=== PATIENT | male | born 1965 | race Caucasian/White ===

== ENCOUNTER 2023-07-03 07:36 | Emergency (ER) | payer BC, SELFPAY ==
--- OUTSIDE RECORDS SUMMARY | 2023-07-03 07:40 | XMS REPORT | Continuity of Care Document ---
:1965 Author Organization [facility] t Address [address] [place] [id number] Care Team Providers Name Role Phone BLANCO VÁZQUEZ Primary Care Physician Unavailable FRANKIE SCHNEIDER Attending Clinician Unavailable FRANKIE SCHNEIDER Attending Clinician Unavailable Blanco Vázquez MD Attending Clinician BLANCO VÁZQUEZ Attending Clinician Unavailable Doctor Unassigned, [facility] Attending Clinician Unavailable Khurram Mar Attending Clinician KHURRAM DILLON Attending Clinician Unavailable CHANDLER BROWER Attending Clinician Unavailable MARYLOU FUNEZ Attending Clinician Unavailable MARYLOU FUNEZ Attending Clinician Unavailable Ronit RN, Marina Montoya Attending Clinician Unavailable Marylou Funez MD Attending Clinician Only, Ang Db Test Attending Clinician Unavailable Onelia Bernard Attending Clinician DANIEL ASHER Attending Clinician Unavailable Emi Ferro PT Attending Clinician Unavailable Meño Hurley Attending Clinician MEÑO CAPELLAN Attending Clinician Unavailable Zuleika Loja Attending Clinician Randa Erazo Attending Clinician Rupa Hung Attending Clinician RUPA GRAMAJO Attending Clinician Unavailable Cole NO, Frankie Godfrey Attending Clinician Darlin Munoz DO Attending Clinician Herson Douglas MD Attending Clinician Liam PAC, Daisha Maria E Attending Clinician Anh VESSEL SCRAPPER, Angela Funk Attending Clinician MEÑO CAPELLAN Admitting Clinician Unavailable Herson Douglas MD Admitting Clinician Payers Payer Name Policy Type Policy Number Effective Date Expiration Date S [place]yla [employer] [place] - [id number] 2017 00:00:00 OUT OF STATE Problems Condition Condition Condition Status Onset Resolution Last Treating Co mments Source Name Details Category Date Date Treatment Clinician Date Seizure Seizure Disease Active Univers disorder disorder 8-10 ity of 00:00: [place] [address] Medical Branch Gastroesop Gastroesop Disease Active U nivers hageal hageal 8-10 ity of reflux reflux 00:00: [place] disease disease 00 Medical without without Branch esophagiti esophagiti s s Essential Essential Disease Active 2019-09 Uni vers hypertensi hypertensi 1-05 it y of on on 00:00: [address] Branch DARREN (acute DARREN (acute Disease Active 2019- U nivers kidney kidney 1-05 ity of injury) injury) 00:00: [place] [address] Medical Branch Elevated Elevated Disease Active 2019-09 Unive rs troponin troponin 1-04 ity of 00:00: [place] [facility] Elevated Elevated Disease Active 2019-09 Unive rs troponin troponin 1-04 ity of 00:00: [place] [facility] Branch Allergies, Adverse Reactions, Alerts Allergy Allergy Status Severity Reaction(s) Onset Inactive Treating Comm ents Source Name Type Date Date Clinician NO KNOWN Drug Active Univers ALLERGIE Class ity of S [facility] Social History Social Habit Start Date Stop Date Quantity Comments Source Gender identity Universit y [facility] Sexual orientation Univer sity [facility] History of Social 2023-05-24 2023-05-24 Univers ity of function 00:00:00 00:00:00 [facility] Exposure to 2022-04-04 2022-04-14 Not sure [facility] SARS-CoV-2 (event) 00:00:00 13:54:00 [facility] Tobacco use and 2022-04-14 2022-04-14 Smokeless Universit y of exposure 00:00:00 00:00:00 tobacco non-user [facility] dical Branch Alcohol intake 2022-04-14 2022-04-14 Current drinker Unive rsity of 00:00:00 00:00:00 of alcohol [place] [facility] (finding) Branch History [facility] Food 2020-07-09 2020-07-09 1 Univers ity of Scarcity 00:00:00 00:00:00 [place] [facility] History SDOH 2020-07-09 2020-07-09 2 University o f Transport Med 00:00:00 00:00:00 [place] Medic al Branch History SDOH 2020-07-09 2020-07-09 2 University o f Transport Non-Med 00:00:00 00:00:00 [place] M edical Branch Education 2020-07-09 2020-07-09 13 University of 00:00:00 00:00:00 [place] [facility] History SDOH 2020-07-09 2020-07-09 3 University o f Financial 00:00:00 00:00:00 [place] [facility] History [facility] Food 2020-07-09 2020-07-09 1 Univers ity of Worry 00:00:00 00:00:00 [facility] [birth year] Universit y of 00:00:00 00:00:00 [facility] Smoking Status Start Date Stop Date Source Never smoked tobacco [facility] Medications Ordered Filled Start Stop Current Ordering Indication Dosage Frequency Signature Comments Components Source Medication Medication Date Date Medication? Clinician (SIG) Name Name methocarbam Yes [id number] 500mg Take 1 Univers oL 500 mg 9-19 tablet by ity o f tablet 00:00: mouth 4 [place] 00 (four) Medical times Branch daily as needed for Pain (scale 4-6). amLODIPine- Yes [id number] TAKE ONE Univers benazepriL 9-19 CAPSULE BY ity of 5-20 mg per 00:00: MOUTH [place] capsule 00 EVERY Medical MORNING Branch methocarbam Yes [id number] 500mg Take 1 Univers oL 500 mg 9-19 tablet by ity o f tablet 00:00: mouth 4 [place] 00 (four) Medical times Branch daily as needed for Pain (scale 4-6). amLODIPine- 2022-0 Yes [id number] TAKE ONE Univers benazepriL 9-19 CAPSULE BY ity of 5-20 mg per 00:00: MOUTH [place] capsule 00 EVERY Medical MORNING Branch omeprazole 2022-0 Yes [id number] 20mg Take 1 Univers 20 mg 9-07 capsule by ity of capsule 00:00: mouth in [place] 00 the Medical morning. Branch omeprazole 2022-0 Yes [id number] 20mg Take 1 Univers 20 mg 9-07 capsule by ity of capsule 00:00: mouth in [place] 00 the Medical morning. Branch omeprazole 2022-0 Yes [id number] 20mg Take 1 Univers 20 mg 9-07 capsule by ity of capsule 00:00: mouth in [place] 00 the Medical morning. Branch omeprazole 2022-0 Yes [id number] 20mg Take 1 Univers 20 mg 9-07 capsule by ity of capsule 00:00: mouth in [place] 00 the Medical morning. Branch amLODIPine- 2022-0 Yes [id number] TAKE ONE Univers benazepriL 8-28 CAPSULE BY ity of 5-20 mg per 00:00: MOUTH [place] capsule 00 EVERY Medical MORNING Branch amLODIPine- 2022-0 Yes [id number] TAKE ONE Univers benazepriL 8-28 CAPSULE BY ity of 5-20 mg per 00:00: MOUTH [place] capsule 00 EVERY Medical MORNING Branch amLODIPine- 2022-0 Yes [id number] TAKE ONE Univers benazepriL 8-28 CAPSULE BY ity of 5-20 mg per 00:00: MOUTH [place] capsule 00 EVERY Medical MORNING Branch amLODIPine- 3-0 2022- No [id number] TAKE ONE Univers benazepriL 8-28 09-19 CAPSULE BY it y of 5-20 mg per 00:00: 00:[place] 00 :00 EVERY Medical MORNING Branch amLODIPine- 3-0 2022- No [id number] TAKE ONE Univers benazepriL 8-28 09-19 CAPSULE BY it y of 5-20 mg per 00:00: 00:[place]TH [place] 00 :00 EVERY Medical MORNING Branch levETIRAcet 2022-0 Yes [id number] 1000mg Take 1 Univers am 1,000 mg 8-22 tablet by ity of tablet 00:00: mouth in [place] 00 the Medical morning Branch and 1 tablet in the evening. levETIRAcet 2023-0 Yes [id number] 1000mg Take 1 Univers am 1,000 mg 8-22 tablet by ity of tablet 00:00: mouth in [place] 00 the Medical morning Branch and 1 tablet in the evening. levETIRAcet 2023-0 Yes [id number] 1000mg Take 1 Univers am 1,000 mg 8-22 tablet by ity of tablet 00:00: mouth in [place] 00 the Medical morning Branch and 1 tablet in the evening. levETIRAcet 2023-0 Yes [id number] 1000mg Take 1 Univers am 1,000 mg 8-22 tablet by ity of tablet 00:00: mouth in [place] 00 the Medical morning Branch and 1 tablet in the evening. levETIRAcet 2023-0 Yes [id number] 1000mg Take 1 Univers am 1,000 mg 8-22 tablet by ity of tablet 00:00: mouth in [place] [address] the Medical morning Branch and 1 tablet in the evening. levETIRAcet 2023-0 Yes [id number] 1000mg Take 1 Univers am 1,000 mg 8-22 tablet by ity of tablet 00:00: mouth in [place] [address] the Medical morning Branch and 1 tablet in the evening. levETIRAcet 2023-0 Yes [id number] 1000mg Take 1 Univers am 1,000 mg 8-22 tablet by ity of tablet 00:00: mouth in [place] [address] the Medical morning Branch and 1 tablet in the evening. AMLODIPINE- 2023-0 Yes [id number] TAKE ONE Univers BENAZEPRIL 6-28 CAPSULE BY ity of 5-20 mg per 00:00: MOUTH [place] capsule 00 EVERY Medical MORNING Branch AMLODIPINE- 2023-0 Yes [id number] TAKE ONE Univers BENAZEPRIL 6-28 CAPSULE BY ity of 5-20 mg per 00:00: MOUTH [place] capsule 00 EVERY Medical MORNING Branch AMLODIPINE- 2023-0 Yes [id number] TAKE ONE Univers BENAZEPRIL 6-28 CAPSULE BY ity of 5-20 mg per 00:00: MOUTH [place] capsule 00 EVERY Medical MORNING Branch AMLODIPINE- 2023-0 2023- No [id number] TAKE ONE Univers BENAZEPRIL 6-28 08-28 CAPSULE BY it y of 5-20 mg per 00:00: 00:[place]TH [place] 00 :00 EVERY Medical MORNING Branch AMLODIPINE- 2022-0 2022- No [id number] TAKE ONE Univers BENAZEPRIL 6-28 08-28 CAPSULE BY it y of 5-20 mg per 00:00: 00:[place]TH [place] 00 :00 EVERY Medical MORNING Branch amLODIPine- 2022-0 Yes [id number] TAKE ONE Univers benazepriL 5-30 CAPSULE BY ity of 5-20 mg per 00:00: MOUTH [place] capsule 00 EVERY Medical MORNING Branch amLODIPine- 2022-0 2022- No [id number] TAKE ONE Univers benazepriL 5-30 06-28 CAPSULE BY it y of 5-20 mg per 00:00: 00:00 M[place]TH [place] 00 :00 EVERY Medical MORNING Branch AMLODIPINE- 2022-0 Yes [id number] TAKE ONE Univers BENAZEPRIL 4-26 CAPSULE BY ity of 5-20 mg per 00:00: MOUTH [place] capsule 00 EVERY Medical MORNING Branch AMLODIPINE- 2022-0 2022- No [id number] TAKE ONE Univers BENAZEPRIL 4-26 05-30 CAPSULE BY it y of 5-20 mg per 00:00: 00:00 MOUTH [place] capsule 00 :00 EVERY Medical MORNING Branch AMLODIPINE- 2022-0 Yes [id number] TAKE ONE Univers BENAZEPRIL 3-23 CAPSULE BY ity of 5-20 mg per 00:00: MOUTH [place] capsule 00 EVERY Medical MORNING Branch AMLODIPINE- 2022-0 2022- No [id number] TAKE ONE Univers BENAZEPRIL 3-23 04-26 CAPSULE BY it y of 5-20 mg per 00:00: 00:[place]TH [place] capsule 00 :00 EVERY Medical MORNING Branch amLODIPine- 2022-0 Yes [id number] 1{capsu Take 1 Univers benazepriL 2-22 le} capsule by ity of 5-20 mg per 00:00: mouth in [place] capsule 00 the Medical morning. Branch amLODIPine- 2022-0 2022- No [id number] 1{capsu Take 1 Univers benazepriL 2-22 03-23 le} capsule by it y of 5-20 mg per 00:00: 00:00 mouth in [place] capsule 00 :00 the Medical morning. Branch levETIRAcet 2021-0 Yes [id number] 1000mg Take 1 Univers am 1,000 mg 8-10 tablet by ity of tablet 00:00: mouth in [place] the Medical morning Branch and 1 tablet in the evening. omeprazole 2022-0 Yes [id number] 20mg Take 1 Univers 20 mg 8-10 capsule by ity of capsule 00:00: mouth in [place] the Medical morning. Branch levETIRAcet 2-0 Yes [id number] 1000mg Take 1 Univers am 1,000 mg 8-10 tablet by ity of tablet 00:00: mouth in [place] the Medical morning Branch and 1 tablet in the evening. omeprazole 2-0 Yes [id number] 20mg Take 1 Univers 20 mg 8-10 capsule by ity of capsule 00:00: mouth in [place] the Medical morning. Branch levETIRAcet 2021-0 Yes [id number] 1000mg Take 1 Univers am 1,000 mg 8-10 tablet by ity of tablet 00:00: mouth in [place] the morning Branch and 1 tablet in the evening. omeprazole 2-0 Yes [id number] 20mg Take 1 Univers 20 mg 8-10 capsule by ity of capsule 00:00: mouth in [place] the Medical morning. Branch omeprazole 2-0 Yes [id number] 20mg Take 1 Univers 20 mg 8-10 capsule by ity of capsule 00:00: mouth in [place] the Medical morning. Branch omeprazole 2-0 Yes [id number] 20mg Take 1 Univers 20 mg 8-10 capsule by ity of capsule 00:00: mouth in [place] the Medical morning. Branch omeprazole 2-0 Yes [id number] 20mg Take 1 Univers 20 mg 8-10 capsule by ity of capsule 00:00: mouth in [place] the Medical morning. Branch levETIRAcet 2-0 Yes [id number] 1000mg Take 1 Univers am 1,000 mg 8-10 tablet by ity of tablet 00:00: mouth in [place] the Medical morning Branch and 1 tablet in the evening. omeprazole 2022-0 Yes [id number] 20mg Take 1 Univers 20 mg 8-10 capsule by ity of capsule 00:00: mouth in [place] the Medical morning. Branch amLODIPine- 2-0 Yes [id number] 1{capsu Take 1 Univers benazepriL 8-10 le} capsule by ity of 5-20 mg per 00:00: mouth in [place] capsule 00 the Medical morning. Branch levETIRAcet 2021-0 Yes [id number] 1000mg Take 1 Univers am 1,000 mg 8-10 tablet by ity of tablet 00:00: mouth in [place] 00 the Medical morning Branch and 1 tablet in the evening. omeprazole 2021-0 Yes [id number] 20mg Take 1 Univers 20 mg 8-10 capsule by ity of capsule 00:00: mouth in [place] 00 the Medical morning. Branch levETIRAcet 2021-0 Yes [id number] 1000mg Take 1 Univers am 1,000 mg 8-10 tablet by ity of tablet 00:00: mouth in [place] 00 the Medical morning Branch and 1 tablet in the evening. omeprazole 2021-0 Yes [id number] 20mg Take 1 Univers 20 mg 8-10 capsule by ity of capsule 00:00: mouth in [place] 00 the Medical morning. Branch omeprazole 2021-0 2022- No [id number] 20mg Take 1 Univers 20 mg 8-10 -07 capsule by ity of capsule 00:00: 00:00 mouth in [place] 00 :00 the Medical morning. Branch omeprazole 2021-0 2022- No [id number] 20mg Take 1 Univers 20 mg 8-10 09-07 capsule by ity of capsule 00:00: 00:00 mouth in [place] 00 :00 the Medical morning. Branch levETIRAcet 2021-0 2022- No [id number] 1000mg Take 1 Univers am 1,000 mg 8-10 -22 tablet by it y of tablet 00:00: 00:00 mouth in [place] 00 :00 the Medical morning Branch and 1 tablet in the evening. amLODIPine- 2021-0 2022- No [id number] 1{capsu Take 1 Univers benazepriL 8-10 02-22 le} capsule by it y of 5-20 mg per 00:00: 00:00 mouth in [place] capsule 00 :00 the Medical morning. Branch AMLODIPINE- 2021-0 2- No [id number] TAKE ONE Univers BENAZEPRIL 5-24 08-10 CAPSULE BY it y of 5-20 mg per 00:00: 00:[place] M[place]TH [place] capsule 00 :00 DAILY Medical Branch meloxicam 2021-0 Yes [id number] 15mg Take 1 U nivers 15 mg 7-20 tablet by ity of tablet 00:00: mouth [place] 00 daily. [facility] Branch meloxicam Yes [id number] 15mg Take 1 U nivers 15 mg 7-20 tablet by ity of tablet 00:00: mouth [place] 00 daily. [facility] meloxicam Yes [id number] 15mg Take 1 U nivers 15 mg 7-20 tablet by ity of tablet 00:00: mouth [place] 00 daily. [facility] Branch meloxicam Yes [id number] 15mg Take 1 U nivers 15 mg 7-20 tablet by ity of tablet 00:00: mouth [place] 00 daily. [facility] meloxicam Yes [id number] 15mg Take 1 U nivers 15 mg 7-20 tablet by ity of tablet 00:00: mouth [place] 00 daily. [facility] meloxicam Yes [id number] 15mg Take 1 U nivers 15 mg 7-20 tablet by ity of tablet 00:00: mouth [place] 00 daily. [facility] meloxicam Yes [id number] 15mg Take 1 U nivers 15 mg 7-20 tablet by ity of tablet 00:00: mouth [place] 00 daily. [facility] meloxicam Yes [id number] 15mg Take 1 U nivers 15 mg 7-20 tablet by ity of tablet 00:00: mouth [place] 00 daily. [facility] meloxicam Yes [id number] 15mg Take 1 U nivers 15 mg 7-20 tablet by ity of tablet 00:00: mouth [place] 00 daily. [facility] meloxicam Yes [id number] 15mg Take 1 U nivers 15 mg 7-20 tablet by ity of tablet 00:00: mouth [place] 00 daily. [facility] meloxicam 0 Yes [id number] 15mg Take 1 U nivers 15 mg 7-20 tablet by ity of tablet 00:00: mouth [place] 00 daily. [facility] meloxicam 2022- No [id number] 15mg Take 1 Univers 15 mg 7-20 09-19 tablet by ity of tablet 00:00: 00:00 mouth [place] 00 :00 daily. [facility] meloxicam 2022- No [id number] 15mg Take 1 Univers 15 mg 7-20 - tablet by ity of tablet 00:00: 00:00 mouth [place] 00 :00 daily. Medical Branch meloxicam 2022- No [id number] 15mg Take 1 Univers 15 mg 7-20 -19 tablet by ity of tablet 00:00: 00:00 mouth [place] 00 :00 daily. Medical Branch methocarbam Yes [id number] 500mg Take 1 Univers oL 500 mg 5-04 tablet by ity o f tablet 00:00: mouth (four) Medical times Branch daily as needed for Pain (scale 4-6). methocarbam Yes [id number] 500mg Take 1 Univers oL 500 mg 5-04 tablet by ity o f tablet 00:00: mouth (four) Medical times Branch daily as needed for Pain (scale 4-6). methocarbam Yes [id number] 500mg Take 1 Univers oL 500 mg 5-04 tablet by ity o f tablet 00:00: mouth (four) Medical times Branch daily as needed for Pain (scale 4-6). methocarbam Yes [id number] 500mg Take 1 Univers oL 500 mg 5-04 tablet by ity o f tablet 00:00: mouth (four) Medical times Branch daily as needed for Pain (scale 4-6). methocarbam Yes [id number] 500mg Take 1 Univers oL 500 mg 5-04 tablet by ity o f tablet 00:00: mouth (four) Medical times Branch daily as needed for Pain (scale 4-6). methocarbam Yes [id number] 500mg Take 1 Univers oL 500 mg 5-04 tablet by ity o f tablet 00:00: mouth (four) Medical times Branch daily as needed for Pain (scale 4-6). methocarbam Yes [id number] 500mg Take 1 Univers oL 500 mg 5-04 tablet by ity o f tablet 00:00: mouth (four) Medical times Branch daily as needed for Pain (scale 4-6). methocarbam Yes [id number] 500mg Take 1 Univers oL 500 mg 5-04 tablet by ity o f tablet 00:00: mouth 4 [place] 00 (four) Medical times Branch daily as needed for Pain (scale 4-6). methocarbam Yes [id number] 500mg Take 1 Univers oL 500 mg 5-04 tablet by ity o f tablet 00:00: mouth 4 [place] 00 (four) Medical times Branch daily as needed for Pain (scale 4-6). methocarbam Yes [id number] 500mg Take 1 Univers oL 500 mg 5-04 tablet by ity o f tablet 00:00: mouth 4 [place] 00 (four) Medical times Branch daily as needed for Pain (scale 4-6). methocarbam Yes [id number] 500mg Take 1 Univers oL 500 mg 5-04 tablet by ity o f tablet 00:00: mouth 4 [place] 00 (four) Medical times Branch daily as needed for Pain (scale 4-6). methocarbam 2022- No [id number] 500mg Take 1 Univers oL 500 mg 5-04 -19 tablet by ity of tablet 00:00: 00:00 mouth 4 [place] 00 :00 (four) Medical times Branch daily as needed for Pain (scale 4-6). methocarbam 2022- No [id number] 500mg Take 1 Univers oL 500 mg 5-04 -19 tablet by ity of tablet 00:00: 00:00 mouth 4 [place] 00 :00 (four) Medical times Branch daily as needed for Pain (scale 4-6). methocarbam 2022- No [id number] 500mg Take 1 Univers oL 500 mg 5-04 -19 tablet by ity of tablet 00:00: 00:00 mouth 4 [place] 00 :00 (four) Medical times Branch daily as needed for Pain (scale 4-6). lidocaine 5 Yes [id number] Apply 1-2 Univers % (700 4-16 patches to ity of mg/patch) 00:00: the area [place] patch 00 and leave Medical in place Branch for up to 12 hours in a day. Do not reapply patches until the next day. meloxicam Yes [id number] 1{tbl} Take 1 Univers 15 mg TbDL 4-16 tablet by ity of 00:00: mouth [place] 00 daily. Medical Branch lidocaine 5 2020- Yes [id number] Apply 1-2 Univers % (700 4-16 patches to ity of mg/patch) 00:00: the area [place] patch 00 and leave Medical in place Branch for up to 12 hours in a day. Do not reapply patches until the next day. meloxicam Yes [id number] 1{tbl} Take 1 Univers 15 mg TbDL 4-16 tablet by ity of 00:00: mouth [place] 00 daily. Medical Branch lidocaine 5 Yes [id number] Apply 1-2 Univers % (700 4-16 patches to ity of mg/patch) 00:00: the area [place] patch 00 and leave Medical in place Branch for up to 12 hours in a day. Do not reapply patches until the next day. meloxicam Yes [id number] 1{tbl} Take 1 Univers 15 mg TbDL 4-16 tablet by ity of 00:00: mouth [place] 00 daily. Medical Branch lidocaine 5 Yes [id number] Apply 1-2 Univers % (700 4-16 patches to ity of mg/patch) 00:00: the area [place] patch 00 and leave Medical in place Branch for up to 12 hours in a day. Do not reapply patches until the next day. meloxicam Yes [id number] 1{tbl} Take 1 Univers 15 mg TbDL 4-16 tablet by ity of 00:00: mouth [place] 00 daily. Medical Branch lidocaine 5 Yes [id number] Apply 1-2 Univers % (700 4-16 patches to ity of mg/patch) 00:00: the [place] patch 00 and leave Medical in place Branch for up to 12 hours in a day. Do not reapply patches until the next day. meloxicam Yes [id number] 1{tbl} Take 1 Univers 15 mg TbDL 4-16 tablet by ity of 00:00: mouth [place] 00 daily. Medical Branch lidocaine 5 2020- Yes [id number] Apply 1-2 Univers % (700 4-16 patches to ity of mg/patch) 00:00: the area [place] patch 00 and leave Medical in place Branch for up to 12 hours in a day. Do not reapply patches until the next day. meloxicam Yes [id number] 1{tbl} Take 1 Univers 15 mg TbDL 4-16 tablet by ity of 00:00: mouth [place] 00 daily. Medical Branch lidocaine 5 Yes [id number] Apply 1-2 Univers % (700 4-16 patches to ity of mg/patch) 00:00: the [place] patch 00 and leave Medical in place Branch for up to 12 hours in a day. Do not reapply patches until the next day. meloxicam Yes [id number] 1{tbl} Take 1 Univers 15 mg TbDL 4-16 tablet by ity of 00:00: mouth [place] 00 daily. Medical Branch lidocaine 5 Yes [id number] Apply 1-2 Univers % (700 4-16 patches to ity of mg/patch) 00:00: the [place] patch 00 and leave Medical in place Branch for up to 12 hours in a day. Do not reapply patches until the next day. meloxicam Yes [id number] 1{tbl} Take 1 Univers 15 mg TbDL 4-16 tablet by ity of 00:00: mouth [place] 00 daily. Medical Branch lidocaine 5 Yes [id number] Apply 1-2 Univers % (700 4-16 patches to ity of mg/patch) 00:00: the [place] patch 00 and leave Medical in place Branch for up to 12 hours in a day. Do not reapply patches until the next day. meloxicam Yes [id number] 1{tbl} Take 1 Univers 15 mg TbDL 4-16 tablet by ity of 00:00: mouth [place] 00 daily. Medical Branch lidocaine 5 Yes [id number] Apply 1-2 Univers % (700 4-16 patches to ity of mg/patch) 00:00: the [place] patch 00 and leave Medical in place Branch for up to 12 hours in a day. Do not reapply patches until the next day. meloxicam Yes [id number] 1{tbl} Take 1 Univers 15 mg TbDL 4-16 tablet by ity of 00:00: mouth [place] 00 daily. Medical Branch lidocaine 5 Yes [id number] Apply 1-2 Univers % (700 4-16 patches to ity of mg/patch) 00:00: the [place] patch 00 and leave Medical in place Branch for up to 12 hours in a day. Do not reapply patches until the next day. meloxicam Yes [id number] 1{tbl} Take 1 Univers 15 mg TbDL 4-16 tablet by ity of 00:00: mouth [place] 00 daily. Medical Branch lidocaine 5 2022- No [id number] Apply 1-2 Univers % (700 4-16 09-19 patches to ity of mg/patch) 00:00: 00:00 [place] patch 00 :00 and leave Medical in place Branch for up to 12 hours in a day. Do not reapply patches until the next day. meloxicam 2022- No [id number] 1{tbl} Take 1 Univers 15 mg TbDL 4-16 09-19 tablet by ity of 00:00: 00:00 mouth [place] 00 :00 daily. Medical Branch lidocaine 5 2022- No [id number] Apply 1-2 Univers % (700 4-16 09-19 patches to ity of mg/patch) 00:00: 00:00 [place] patch 00 :00 and leave Medical in place Branch for up to 12 hours in a day. Do not reapply patches until the next day. meloxicam 2022- No [id number] 1{tbl} Take 1 Univers 15 mg TbDL 4-16 09-19 tablet by ity of 00:00: 00:00 mouth [place] 00 :00 daily. Medical Branch lidocaine 5 2022- No [id number] Apply 1-2 Univers % (700 4-16 09-19 patches to ity of mg/patch) 00:00: 00:00 [place] patch 00 :00 and leave Medical in place Branch for up to 12 hours in a day. Do not reapply patches until the next day. meloxicam 2022- No [id number] 1{tbl} Take 1 Univers 15 mg TbDL 4-16 09-19 tablet by ity of 00:00: 00:00 mouth [place] 00 :00 daily. Medical Branch methylPREDN 2021-0 Yes [id number] 84mg Take 21 Univers ISolone 4-14 tablets by ity of (MEDROL, 00:00: mouth [place] CLARY,) 4 mg 00 SEE-INSTRU Med ical tablets CTIONS. Branch follow package directions methylPREDN 1-0 Yes [id number] 84mg Take 21 Univers ISolone 4-14 tablets by ity of (MEDROL, 00:00: mouth [place] CLARY,) 4 mg 00 SEE-INSTRU Med ical tablets CTIONS. Branch follow package directions methylPREDN 1-0 Yes [id number] 84mg Take 21 Univers ISolone 4-14 tablets by ity of (MEDROL, 00:00: mouth [place] CLARY,) 4 mg 00 SEE-INSTRU Med ical tablets CTIONS. Branch follow package directions methylPREDN 1-0 Yes [id number] 84mg Take 21 Univers ISolone 4-14 tablets by ity of (MEDROL, 00:00: mouth [place] CLARY,) 4 mg 00 SEE-INSTRU Med ical tablets CTIONS. Branch follow package directions methylPREDN 1-0 Yes [id number] 84mg Take 21 Univers ISolone 4-14 tablets by ity of (MEDROL, 00:00: mouth [place] CLARY,) 4 mg 00 SEE-INSTRU Med ical tablets CTIONS. Branch follow package directions methylPREDN 1-0 Yes [id number] 84mg Take 21 Univers ISolone 4-14 tablets by ity of (MEDROL, 00:00: mouth [place] CLARY,) 4 mg 00 SEE-INSTRU Med ical tablets CTIONS. Branch follow package directions methylPREDN 1-0 Yes [id number] 84mg Take 21 Univers ISolone 4-14 tablets by ity of (MEDROL, 00:00: mouth [place] CLARY,) 4 mg 00 SEE-INSTRU Med ical tablets CTIONS. Branch follow package directions methylPREDN 2021-0 Yes [id number] 84mg Take 21 Univers ISolone 4-14 tablets by ity of (MEDROL, 00:00: mouth [place] CLARY,) 4 mg 00 SEE-INSTRU Med ical tablets CTIONS. Branch follow package directions methylPREDN 2021-0 Yes [id number] 84mg Take 21 Univers ISolone 4-14 tablets by ity of (MEDROL, 00:00: mouth [place] CLARY,) 4 mg 00 SEE-INSTRU Med ical tablets CTIONS. Branch follow package directions methylPREDN 0 Yes [id number] 84mg Take 21 Univers ISolone 4-14 tablets by ity of (MEDROL, 00:00: mouth [place] CLARY,) 4 mg 00 SEE-INSTRU Med ical tablets CTIONS. Branch follow package directions methylPREDN Yes [id number] 84mg Take 21 Univers ISolone 4-14 tablets by ity of (MEDROL, 00:00: mouth [place] CLARY,) 4 mg 00 SEE-INSTRU Med ical tablets CTIONS. Branch follow package directions methylPREDN 2022- No [id number] 84mg Take 21 Univers ISolone 4-14 09-19 tablets by ity o f (MEDROL, 00:00: 00:00 mouth [place] CLARY,) 4 mg 00 :00 SEE-INSTRU Med ical tablets CTIONS. Branch follow package directions methylPREDN 2022- No [id number] 84mg Take 21 Univers ISolone 4-14 09-19 tablets by ity o f (MEDROL, 00:00: 00:00 mouth [place] CLARY,) 4 mg 00 :00 SEE-INSTRU Med ical tablets CTIONS. Branch follow package directions methylPREDN 2022- No [id number] 84mg Take 21 Univers ISolone 4-14 09-19 tablets by ity o f (MEDROL, 00:00: 00:00 mouth [place] CLARY,) 4 mg 00 :00 SEE-INSTRU Med ical tablets CTIONS. Branch follow package directions levETIRAcet 2021- No [id number] 1000mg Take 1 Univers am 1,000 mg 2-10 08-10 tablet by it y of tablet 00:00: 00:00 mouth 2 [place] 00 :00 (two) Medical times Branch daily. omeprazole 2021- No [id number] 20mg Take 1 Univers 20 mg 2-10 08-10 capsule by ity of capsule 00:00: 00:00 mouth [place] 00 :00 daily. Medical Branch albuterol 2019-0 Yes [id number] 2{puff} Inhale 2 Univers 90 8-23 Puffs ity of mcg/actuati 00:00: every 4 Aren as on inhaler 00 (four) Medical hours as Branch needed for Wheezing or Shortness of Breath. albuterol Yes [id number] 2{puff} Inhale 2 Univers 90 8-23 Puffs ity of mcg/actuati 00:00: every 4 [place] on inhaler 00 (four) Medical hours as Branch needed for Wheezing or Shortness of Breath. albuterol 2018- Yes [id number] 2{puff} Inhale 2 Univers 90 8-23 Puffs ity of mcg/actuati 00:00: every 4 [place] on inhaler 00 (four) Medical hours as Branch needed for Wheezing or Shortness of Breath. albuterol Yes [id number] 2{puff} Inhale 2 Univers 90 8-23 Puffs ity of mcg/actuati 00:00: every 4 [place] on inhaler 00 (four) Medical hours as Branch needed for Wheezing or Shortness of Breath. albuterol Yes [id number] 2{puff} Inhale 2 Univers 90 8-23 Puffs ity of mcg/actuati 00:00: every 4 [place] on inhaler 00 (four) Medical hours as Branch needed for Wheezing or Shortness of Breath. albuterol Yes [id number] 2{puff} Inhale 2 Univers 90 8-23 Puffs ity of mcg/actuati 00:00: every 4 [place] on inhaler 00 (four) Medical hours as Branch needed for Wheezing or Shortness of Breath. albuterol Yes [id number] 2{puff} Inhale 2 Univers 90 8-23 Puffs ity of mcg/actuati 00:00: every 4 [place] on inhaler 00 (four) Medical hours as Branch needed for Wheezing or Shortness of Breath. albuterol Yes [id number] 2{puff} Inhale 2 Univers 90 8-23 Puffs ity of mcg/actuati 00:00: every 4 [place] as on inhaler 00 (four) Medical hours as Branch needed for Wheezing or Shortness of Breath. albuterol Yes [id number] 2{puff} Inhale 2 Univers 90 8-23 Puffs ity of mcg/actuati 00:00: every 4 A[place] as on inhaler 00 (four) Medical hours as Branch needed for Wheezing or Shortness of Breath. albuterol Yes [id number] 2{puff} Inhale 2 Univers 90 8-23 Puffs ity of mcg/actuati 00:00: every 4 Aren as on inhaler 00 (four) Medical hours as Branch needed for Wheezing or Shortness of Breath. albuterol Yes [id number] 2{puff} Inhale 2 Univers 90 8-23 Puffs ity of mcg/actuati 00:00: every 4 Aren as on inhaler 00 (four) Medical hours as Branch needed for Wheezing or Shortness of Breath. albuterol 2022- No [id number] 2{puff} Inhale 2 Univers 90 8-23 09-19 Puffs ity of mcg/actuati 00:00: 00:00 every 4 [place] inhaler 00 :00 (four) Medical hours as Branch needed for Wheezing or Shortness of Breath. albuterol 2022- No [id number] 2{puff} Inhale 2 Univers 90 8-23 09-19 Puffs ity of mcg/actuati 00:00: 00:00 every 4 [place] inhaler 00 :00 (four) Medical hours as Branch needed for Wheezing or Shortness of Breath. albuterol 3- No [id number] 2{puff} Inhale 2 Univers 90 8-23 09-19 Puffs ity of mcg/actuati 00:00: 00:00 every 4 [place] inhaler 00 :00 (four) Medical hours as Branch needed for Wheezing or Shortness of Breath. Immunizations Ordered Filled Date Status Comments Source Immunization Name Immunization Name Influenza Virus 2020-07-10 Completed Universit y of Vaccine Quad .5 mL 00:00:00 [facility] IM 6+ MO Branch Influenza Virus 2020-07-10 Completed Universit y of Vaccine Quad .5 mL 00:00:00 [facility] IM 6+ MO Branch Influenza Virus 2020-07-10 Completed Universit y of Vaccine Quad .5 mL 00:00:00 [facility] IM 6+ MO Branch Influenza Virus 2020-07-10 Completed Universit y of Vaccine Quad .5 mL 00:00:00 [facility] IM 6+ MO Branch Influenza Virus 2020-07-10 Completed Universit y of Vaccine Quad .5 mL 00:00:00 [facility] IM 6+ MO Branch Influenza Virus 2020-07-10 Completed Universit y of Vaccine Quad .5 mL 00:00:00 [facility] IM 6+ MO Branch Influenza Virus 2020-07-10 Completed Universit y of Vaccine Quad .5 mL 00:00:00 [facility] IM 6+ MO Branch (FLUZONE/FLULAVAL/F LUARIX) Influenza Virus 2020-07-10 Completed Universit y of Vaccine Quad .5 mL 00:00:00 [facility] IM 6+ MO Branch (FLUZONE/FLULAVAL/F LUARIX) Influenza Virus 2020-07-10 Completed Universit y of Vaccine Quad .5 mL 00:00:00 [facility] IM 6+ MO Branch (FLUZONE/FLULAVAL/F LUARIX) Influenza Virus 2020-07-10 Completed Universit y of Vaccine Quad .5 mL 00:00:00 [facility] 6+ MO Branch (FLUZONE/FLULAVAL/F LUARIX) Influenza Virus 2020-07-10 Completed Universit y of Vaccine Quad .5 mL 00:00:00 [facility] 6+ MO Branch Influenza Virus 2020-07-10 Completed Universit y of Vaccine Quad .5 mL 00:00:00 [facility] 6+ MO Branch Influenza Virus 2020-07-10 Completed Universit y of Vaccine Quad .5 mL 00:00:00 [facility] 6+ MO Branch Influenza Virus Unknown Completed Universit y of Vaccine Quad .5 mL [facility] 6+ MO Branch (FLUZONE/FLULAVAL/F LUARIX) Vital Signs Vital Name Observation Time Observation Value Comments Source Systolic blood 2023-05-24 20:19:00 131 mm[Hg] Univer sity of pressure [facility] Diastolic blood 2023-05-24 20:19:00 75 mm[Hg] Unive rsity of pressure [facility] Heart rate 2023-05-24 20:19:00 52 /min [facility] Body temperature 2023-05-24 20:19:[address] [facility] height 2023-05-24 20:19:00 167.6 cm [facility] Body weight 2023-05-24 20:19:00 77.111 kg [facility] BMI 2023-05-24 20:19:00 [facility]44 [facility] 2022-04-14 19:12:00 137 mm[Hg] Univer sity of pressure [facility] Diastolic blood 2022-04-14 19:12:00 72 mm[Hg] Unive rsity of pressure [facility] Heart rate 2022-04-14 19:12:00 56 /min [facility] Body height 2022-04-14 19:12:00 170.2 cm [facility] Body weight 2022-04-14 19:12:00 78.472 kg [facility] BMI 2022-04-14 19:12:00 27.10 kg/m2 [facility] Oxygen saturation in 2022-04-14 19:12:00 99 /min [facility] blood by [facility] Pulse oximetry Supai Procedures Procedure Date / Time Performed Performing Clinician [facility] e CONSENT/REFUSAL FOR 2023-05-24 20:01:05 Doctor Unassigned, No [facility] DIAGNOSIS AND [facility] TREATMENT ASSIGNMENT OF BENEFITS 2023-05-24 20:00:48 Doctor Unassigned, No [facility] Encounters Start End Encounter Admission Attending Care Care Encounter Source Date/Time Date/Time Type Type Clinicians Facility Department ID 2021-07-05 Emergency [facility] [id number] Univers 13:21:58 [facility] 2023-07-01 2023-07-01 Outpatient FRANKIE CHANDLER [facility] [id number] Univers 12:40:00 12:40:00 [facility] 2023-05-24 2023-05-24 Office [facility] 1.2.840.114 [id number] Univers 15:30:00 15:45:[address] [facility] 350.1.13.10 santos y of [place] ARCOS 4.2.7.2.686 Aren as JAVON?BLEA [phone] Ut adenike [address] MEDICAL OFFICE BUILDING 2023-05-24 2023-05-24 Outpatient Zaheer VÁZQUEZ [facility] [id number] Univers 15:30:00 15:30:00 [facility] 2023-05-24 2023-05-24 Orders Doctor ONEIL 1.2.840.114 [id number] Univers 00:00:00 00:00:00 Only Unassigned, DARL[place] 350.1.13.[address] [place] [facility] 4.2.7.2.686 Aren as [phone] [address] 2023-05-12 2023-05-12 [facility] 1.2.840.114 [id number] Univers 00:00:00 00:00:00 [facility] 350.1.13.10 it y of [place] 4.2.7.2.686 Aren as JAVON?BLEA [id number] [address] OFFICE [facility] 2023-05-02 2023-05-02 [facility] 1.2.840.114 [id number] [facility] 00:00:00 00:00:00 [facility] 350.1.13.10 it y of [place] [facility] 4.2.7.2.686 Aren as JAVON?BLEA [id number] [address] OFFICE [facility] 2023-04-29 2023-04-29 [facility] 1.2.840.114 [id number] Univers 00:00:00 00:00:00 [facility] 350.1.13.10 it y of [place] 4.2.7.2.686 Aren as JAVON?BLEA [id number] [address] OFFICE [facility] 2023-04-26 2023-04-26 [facility] 1.2.840.114 [id number] Univers 00:00:00 00:00:00 Khurram HEALTH 350.1.13.10 it y of [place] 4.2.7.2.686 Aren as JAVON?BLEA [id number] [address] OFFICE [facility] 2023-04-18 2023-04-18 [facility] 1.2.840.114 [id number] Univers 00:00:00 00:00:00 Khurram HEALTH 350.1.13.10 it y of [place] 4.2.7.2.686 Aren as JAVON?BLEA [id number] Ut adenike WOODSON [address] [place] [address] OFFICE [facility] 2023-03-02 2023-03-02 [facility] 1.2.840.114 [id number] Univers 00:00:00 00:00:00 Khurram HEALTH 350.1.13.10 it y of [place] 4.2.7.2.686 Aren as JAVON?BLEA [id number] Ut adenike WOODSON [address] [place] [address] OFFICE [facility] 2023-02-01 2023-02-01 [facility] 1.2.840.114 [id number] Univers 00:00:00 00:00:00 [place] HEALTH 350.1.13.10 it y of [place] 4.2.7.2.686 Aren as JAVON?BLEA [id number] Ut adenike [address] 2022-12-29 2022-12-29 [facility] 1.2.840.114 [id number] Univers 00:00:00 00:00:00 [facility] 350.1.13.10 it y of [place] 4.2.7.2.686 Aren as JAVON?BLEA [phone] Ut adenike WOODSON [address] [place] [address] 2022-11-24 2022-11-24 [facility] 1.2.840.114 [id number] Univers 00:00:00 00:00:00 [facility] 350.1.13.10 it y of [place] 4.2.7.2.686 Aren as JAVON?BLEA [id number] Ut adenike WOODSON [address] [place] [address] 2022-10-27 2022-10-27 [facility] 1.2.840.114 [id number] Univers 00:00:00 00:00:00 [facility] 350.1.13.10 it y of [place] 4.2.7.2.686 Aren as JAVON?BLEA [id number] [facility] [address] OFFICE [facility] 2022-04-20 2022-04-20 [facility] [id number] Univers 07:30:00 07:30:00 BLANCO espinosa [facility] 2022-04-14 2022-04-14 Office Nighat [facility] 1.2.840.114 [id number] Univers 14:00:00 14:30:00 Visit Khurram [facility] 350.1.13.10 it y of [place] 4.2.7.2.686 Aren as JAVON?BLEA [id number] [address] OFFICE [facility] 2022-04-14 2022-04-14 Outpatient R NIGHAT [facility] [id number] Univers 14:00:00 14:00:00 KHURRAM espinosa [facility] 2022-04-14 2022-04-14 Telephone [facility] 1.2.840.114 [id number] Univers 00:00:00 00:00:00 [facility] 350.1.13.10 it y of [place] 4.2.7.2.686 Aren as JAVON?BLEA [id number] [address] OFFICE [facility] 2022-04-14 2022-04-14 Orders Doctor ONEIL 1.2.840.114 [id number] Univers 00:00:00 00:00:00 Only Unassigned, DARL[place] 350.1.13.[address] [place] [facility] 4.2.7.2.686 Aren as [id number] [address] 2022-04-13 2022-04-13 Refill [facility] 1.2.840.114 [id number] Univers 00:00:00 00:00:00 [facility] 350.1.13.10 it y of [place] 4.2.7.2.686 Aren as JAVON?BLEA [id number] [address] OFFICE [facility] 2022-04-13 2022-04-13 Refill [facility] 1.2.840.114 [id number] Univers 00:00:00 00:00:00 [facility] 350.1.13.10 it y of [place] 4.2.7.2.686 Aren as JAVON?BLEA [id number] [address] OFFICE [facility] 2022-04-12 2022-04-12 [facility] 1.2.840.114 [id number] Univers 00:00:00 00:00:00 [facility] 350.1.13.10 it y of [place] 4.2.7.2.686 Aren as JAVON?BLEA [id number] [address] MEDICAL OFFICE [facility] 2022-04-09 2022-04-09 [facility] 1.2.840.114 [id number] Univers 00:00:00 00:00:00 [facility] 350.1.13.10 it y of [place] 4.2.7.2.686 Aren as JAVON?BLEA [id number] [address] 2022-01-26 2022-01-26 [facility] 1.2.840.114 [id number] Univers 00:00:00 00:00:00 [facility] 350.1.13.10 it y of [place] 4.2.7.2.686 Aren as JAVON?BLEA [id number] [address] 2021-05-26 2021-05-26 Outpatient R INOCENTE [facility] [id number] Univers 08:00:00 08:00:00 CHANDLER ayala [facility] 2021-05-12 2021-05-12 Outpatient R MARYLOU FUNEZ [facility] [id number] Univers 13:00:00 13:00:00 MARYLOU FUNEZ [facility] 2021-05-08 2021-05-08 Letter ONEIL [place] 1.2.840.114 [id number] Univers 00:00:00 00:00:00 (Out) Marina HASTINGS 350.1.13.10 it y of [facility] 4.2.7.2.686 Aren as [phone] [address] 2021-05-06 2021-05-06 Telephone Dee Dee KSDAVE 1.2.830.932 [id number] Univers 00:00:00 00:00:00 Marylou RIZO 350.1.13.10 ity of [place] [id number] [facility] AND LAKHANI 011 Branch [facility]ES [facility] 2021-05-05 2021-05-05 Laboratory Only, Ang Db Test [facility] 1.2.8 40.114 [id number] Univers 16:58:05 17:08:05 Only [place] [facility] 350.1.13.10 ity of [place] 4.2.7.2.686 Aren as Javon?Blea [id number] Ut diccamille kney [address] [facility] 2021-05-05 2021-05-05 Outpatient R [facility] [id number] Univers 16:35:00 16:35:00 ity [facility] 2021-04-13 2021-04-13 Outpatient R LAKESHIA [facility] [id number] Univers 08:20:00 08:20:00 [facility] 2021-04-01 2021-04-01 Outpatient R MARYLOU FUNEZ [facility] [id number] Univers 08:20:00 08:20:00 MARYLOU FUNEZ [facility] 2021-04-01 2021-04-01 Jose Luis Ferro [facility] 1.2.840.114 [id number] Univers 00:00:00 00:00:00 Management Emi Arcos 350.1.13.10 [place].2.7.2.[place] [facility] [phone] Ut adenike [facility] [address] Building 2021-03-24 2021-03-24 Office Dee Dee [facility] 1.2.840.114 [id number] Univers 09:28:00 10:17:31 Visit Marylou RIZO 350.1.13.10 ity of [place] 4.2.7.2.[place] [id number] [facility] AND [place] 011 Branch [facility] 2021-03-24 2021-03-24 Outpatient R MARYLOU FUNEZ [facility] [id number] Univers 09:30:00 09:30:00 MARYLOU FUNEZ [facility] 2021-02-18 2021-02-18 Telephone Dee Dee [facility] [id number] Univers 00:00:00 00:00:00 Marylou MULTISPEC 350.1.13.10 ity of [place] 4.2.7.2.[place] [id number] [facility] AND [place] [address] [facility] 2021-02-16 2021-02-16 [facility] 1.2.002.688 [id number] Univers 00:00:00 00:00:00 Marylou MULTISPEC 350.1.13.10 ity of [place] 4.2.7.2.[place] [id number] [facility] AND [place] [address] [facility] 2021-02-10 2021-02-10 [facility] 1.2.840.114 [id number] [facility] 13:46:16 23:59:00 Encounter Marylou OSEGUERAPEC 350.1.13.10 ity of [place] 4.2.7.2.[place] [id number] [facility] AND [place] [address] [facility] 2021-02-10 2021-02-10 Outpatient MARYLOU ONEIL [facility] [id number] Univers 14:00:00 14:00:00 AMRYLOU FUNEZ of [facility] 2021-02-06 2021-02-06 Telephone [facility] 1.2.686.511 [id number] [facility] 00:00:00 00:00:00 Marylou OSEGUERAPEC 350.1.13.10 ity [place].2.[place] [id number] [facility] [address] DIABETES CLIN[facility] 2021-01-26 2021-01-26 Outpatient FRANKIE CHANDLER [facility] [id number] Univers 09:20:00 09:20:00 FRANKIE SCHNEIDER of [facility] 2021-01-20 2021-01-20 Office [facility] 1.2.840.114 [id number] Univers 08:47:22 09:41:41 Visit Marylou MULTISPEC 350.1.13.10 ity of [place] 4.2.7.2.[place] [id number] [facility] AND [place] 0[address] Branch [facility]ETES CL[facility] 2021-01-20 2021-01-20 Outpatient R MARYLOU FUNEZ [facility] [id number] Univers 09:00:00 09:00:00 MARYLOU FUNEZ ity [facility] 2021-01-20 2021-01-20 Orders Doctor ONEIL 1.2.840.114 [id number] Univers 00:00:00 00:00:00 Only Unassigned, [place]ARL[place] 350.1.13.[address] [facility] 4.2.7.2.686 Aren as [id number] [facility] 00[address] Branch 2021-01-12 2021-01-12 Outpatient R LAKESHIA [facility] [id number] Univers 09:00:00 09:00:00 DANIEL itmarizol [facility] 2021-01-06 2021-01-06 Office [facility] 1.2.840.114 [id number] Univers 08:54:52 09:27:00 Visit Meño SPECIALTY 350.1.13.10 ity of CARE 4.2.7.2.686 [facility] CENTER AT [id number] Ut adenike CAIN [address] [facility] 2021-01-06 2021-01-06 Outpatient Zaheer CAPELLAN [facility] [id number] Univers 09:00:00 09:00:00 MEÑO ity [facility] 2021-01-01 2021-01-01 Hospital Blake KSDAVE 1.2.840.114 [id number] Univers 18:01:46 23:59:00 Encounter Meño SPECIALTY 350.1.13.10 ity of CARE 4.2.7.2.686 [facility] CENTER AT [phone] Ut adenike CAIN 8[address] [facility] 2021-01-01 2021-01-01 Outpatient Zaheer CAPELLAN [facility] [id number] Univers 18:01:46 23:59:00 MEÑO ity [facility] 2021-01-01 2021-01-01 Outpatient Zaheer CAPELLAN [facility] [id number] Univers 00:00:00 00:00:00 MEÑO itmarizol [facility] 2020-12-23 2020-12-23 Office Blake [facility] 1.2.840.114 [id number] Univers 07:52:36 08:39:47 Visit Meño SPECIALTY 350.1.13.10 ity of CARE 4.2.7.2.686 [facility] AT [phone] Ut adenike CAIN 198 [facility] 2020-12-23 2020-12-23 Outpatient Zaheer CAPELLAN [facility] [id number] Univers 08:00:00 08:00:00 MEÑO ity of [facility] 2020-12-23 2020-12-23 Letter [facility] 1.2.840.114 [id number] Univers 00:00:00 00:00:00 (Out) Meño SPECIALTY 350.1.13.10 ity of CARE 4.2.7.2.686 [facility] CENTER AT [id number] Ut adenike CAIN 198 [facility] 2020-12-19 2020-12-19 Emergency [facility] 1.2.987.952 [id number] Univers 10:17:00 12:11:00 Zuleika Arcos 350.1.13.10 i ty of [place] 4.2.7.2.686 [facility] [id number] [facility] [address] 2020-12-18 2020-12-18 Telephone [facility] 1.2.840.114 [id number] Univers 00:00:00 00:00:00 [facility] 350.1.13.10 it y of Garypavithra [place] 4.2.7.2.686 Aren as Professio [id number] Ut dical nal [address] Office Building One 2020-12-17 2020-12-17 [facility] [id number] [id number] Univers 10:45:00 23:59:00 Encounter [place] Arcos 350.1.13.10 ity of [place] 4.2.7.2.686 [facility] [phone] [facility] [address] 2020-12-17 2020-12-17 Office [facility] 1.2.840.114 [id number] Univers 10:12:52 10:27:52 Visit [facility] 350.1.13.10 it y of [place] 4.2.7.2.686 Aren as Professio [id number] Ut dic[address] Office [facility] One 2020-12-17 2020-12-17 Outpatient R KATHIE [facility] [id number] Univers 10:15:00 10:15:00 BLANCO espinosa [facility] 2020-10-15 2020-10-15 Office [facility] 1.2.840.114 [id number] Univers 14:16:52 14:31:52 Visit [facility] 350.1.13.10 it y of [place] 4.2.7.2.686 Aren as Professio [id number] [address] One 2020-10-15 2020-10-15 Outpatient R KATHIE [facility] [id number] Univers 14:15:00 14:15:00 BLANCO [facility] 2020-09-11 2020-09-11 Urgent Randa James [facility] 1.2.840 .114 [id number] Univers 15:50:26 16:33:14 Care Rupa Gramajo [facility] 350.1.13.10 ity of [place] 4.2.7.2.686 Aren as Professio [id number] [address] One 2020-09-11 2020-09-11 Outpatient Zaheer GRAMAJO [facility] [id number] Univers 15:40:00 15:40:00 RUPA francisca [facility] 2020-08-26 2020-08-26 Outpatient FRANKIE CHANDLER [facility] [id number] Univers 14:00:00 14:00:00 FRANKIE SCHNEIDER [facility] 2020-08-12 2020-08-12 [facility] [id number] Univers 16:11:47 16:26:47 Visit [facility] [id number] it y of [place] [id number] Aren as Professio [phone] [address] Office [facility] 2020-08-12 2020-08-12 Outpatient R KATHIE [facility] [id number] Univers 16:15:00 16:15:00 BLANCO espinosa [facility] 2020-08-12 2020-08-12 Outpatient Zaheer VÁZQUEZ [facility] [id number] Univers 10:30:00 10:30:00 BLANCO espinosa [facility] 2020-08-02 2020-08-02 Orders Doctor ONEIL [id number] Univers 00:00:00 00:00:00 Only Unassigned, DARLING [id number] ity of [facility] [id number] Aren as [phone] [facility] 009 [place] 2020-07-28 2020-07-28 [facility] [id number] Univers 08:43:04 09:30:34 Visit Frankie Arcos [id number] it[id number] [phone] Ut dical nal 092 [facility] 2020-07-28 2020-07-28 Outpatient FRANKIE CHANDLER [facility] [id number] Univers 08:40:00 08:40:00 FRANKIE SCHNEIDER [facility] 2020-07-15 2020-07-15 [facility] [id number] Univers 13:54:22 14:24:22 Visit Blanco Poe [id number] it y of [place] [id number] Aren [place] Professio [phone] Ut dical nal 044 [place] Office [facility] 2020-07-15 2020-07-15 Outpatient Zaheer VÁZQUEZ [facility] [id number] Univers 14:00:00 14:00:00 BLACNO espinosa [facility] 2020-07-09 2020-07-10 Emergency Darlin Munoz [facility] [id number] Univers 07:20:00 16:20:00 Herson Douglas [id number] [id number] [phone] [facility] [address] Branch 2020-07-09 2020-07-09 Emergency X [facility] ERT [id number] Univers 07:16:00 07:16:00 ity [facility] 2020-07-02 2020-07-02 Emergency Daisha Wheeler [facility] [id number] Univers 14:39:00 16:21:00 Maria E Clari [id number] i ty of [place] [id number] [facility] [phone] [place] [address] [address] 2020-07-02 2020-07-02 Emergency X [facility] ERT [id number] Univers 14:13:00 14:13:00 ity [facility] 2019-04-27 2019-04-27 Emergency [facility] [id number] 11:02:55 14:01:00 Angela Funk Clari [id number] [place] [id number] Cash [id number] 082019-04-27 2019-04-27 Emergency [facility] [id number] Univers 11:02:55 14:01:00 Angela Funk Clari [id number] ity of [place] [id number] [facility] [phone] [address] Results This patient has no known results.
[2023-07-03 08:15] LABS: Absolute Lymphocytes (CBC) 1.8 K/uL (0.7-4.9); Hematocrit 49.1 % (39.6-49.0); Lymphocytes % 26.1 % (15.3-44.8); MCV 83.9 fL (80-100); MPV 9.1 fL (7.6-11.3); Platelets 198 thou/uL (152-406); RBC Red Blood Cell Count 5.86 M/uL (4.33-5.43)
[2023-07-03 08:36] LABS: Potassium 2.7 mEq/L (3.5-5.1); Troponin High Sensitivity 10.2 pg/mL (<58.9)
[2023-07-03] MEDS ORDERED: ONDANSETRON 4 MG/2 ML VIAL ONE (08:47)
[2023-07-03] MEDS ORDERED: ALBUTEROL INHALER 60 PUFF/8 GM IH ONE (08:47)
[2023-07-03] MEDS ORDERED: NA CHLORIDE 0.9% 1,000 ML ONE (08:47)
--- NOTE | 2023-07-03 08:59 | ER ---
Nurse's Notes [facility] Name: Eugenio Villarreal Age: 58 yrs Sex: Male : 1965 Arrival Date: 07/03/2023 Time: 07:36 Bed 14 Private MD: Diagnosis: Covid;Hypokalemia;Dyspnea Presentation: 07/03 07:50 Chief complaint: Tested COVID + 10 days ago, c/o N/V/D, SOB x 5 days, and left sided hb chest pain 7/10 that started last night. Tolerating small amounts of fluids but not solids. Coronavirus screen: Client presents with at least one sign or symptom that may indicate coronavirus-19. Standard/surgical mask placed on the client. Provider contacted for isolation considerations. Ebola Screen: No symptoms or risks identified at this time. Initial Sepsis Screen: Does the patient meet any 2 criteria? No. Patient's initial sepsis screen is negative. Does the patient have a suspected source of infection? No. Patient's initial sepsis screen is negative. Risk Assessment: Do you want to hurt yourself or someone else? Patient reports no desire to harm self or others. Onset of symptoms was July 03, 2023. 07:50 Method Of Arrival: Ambulatory hb 07:50 Acuity: KASHIF 3 hb Historical: - Allergies: 07:52 Clarithromycin; hb - Home Meds: 07:52 amlodipine oral [Active]; Keppra Oral [Active]; Prilosec Oral [Active]; hb - PMHx: 07:52 Seizure; Hypertension; hb - PSHx: 07:52 None; hb - Immunization history:: Adult Immunizations up to date. - Social history:: Smoking status: Patient denies any tobacco usage or history of. Screenin:08 [facility] ED Fall Risk Assessment (Adult) History of falling in the last 3 months, ld1 including since admission No falls in past 3 months (0 pts). Abuse screen: Denies threats or abuse. Denies injuries from another. Nutritional screening: No deficits noted. Tuberculosis screening: No symptoms or risk factors identified. Assessment: 08:08 General: Appears in no apparent distress. comfortable, Behavior is calm, cooperative, ld1 appropriate for age. Pain: Denies pain. Pain does not radiate. Pain began cough congestion X 1 week due to COVID. Neuro: Level of Consciousness is awake, alert, obeys commands, Oriented to person, place, time, situation. Cardiovascular: Capillary refill < 3 seconds Patient's skin is warm and dry. Rhythm is sinus rhythm. Respiratory: Reports cough that is non-productive, Airway is patent Respiratory effort is even, unlabored. GI: Abdomen is flat, non-distended. : No signs and/or symptoms were reported regarding the genitourinary system. EENT: No signs and/or symptoms were reported regarding the EENT system. Derm: No signs and/or symptoms reported regarding the dermatologic system. Musculoskeletal: No signs and/or symptoms reported regarding the musculoskeletal system. 08:58 Reassessment: Patient appears in no apparent distress at this time. No changes from ld1 previously documented assessment. Patient and/or family updated on plan of care and expected duration. Pain level reassessed. Patient is alert, oriented x 3, equal unlabored respirations, skin warm/dry/pink. Patient states feeling better. Vital Signs: 07:50 BP 146 / 106; Pulse 72; Resp 17; Temp 98.8(O); Pulse Ox 99% on R/A; Weight 71.67 kg; hb Height 5 ft. 7 in. ; Pain 7/10; 08:58 BP 128 / 74; Pulse 64; Resp 18; Pulse Ox 98% on R/A; ld1 07:50 Body Mass Index 24.75 (71.67 kg, 170.18 cm) hb 07:50 Pain Scale: Adult hb ED Course: 07:40 Patient arrived in ED. mg5 07:48 Mateus Guillen MD is Attending Physician. ec2 07:52 Triage completed. hb 07:54 Arm band placed on. hb 07:58 Renetta Cool, PABLO is Primary Nurse. ld1 08:05 XRAY Chest (1 view) In Process Unspecified. EDMS 08:08 Patient has correct armband on for positive identification. Placed in gown. Bed in low ld1 position. Call light in reach. Side rails up X2. 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 Pulse ox on. NIBP on. Door closed. Noise minimized. Warm blanket given. 08:08 Inserted saline lock: 20 gauge in right forearm, using aseptic technique. Blood ld1 collected. 08:08 No provider procedures requiring assistance completed. Patient maintains SpO2 ld1 saturation greater than 95% on room air. 09:59 IV discontinued, intact, bleeding controlled, No redness/swelling at site. ld1 Administered Medications: 08:36 Drug: Ondansetron IVP 4 mg IVP once; over 2 minutes Route: IVP; Site: right forearm; ld1 08:37 Drug: Albuterol AEPB Inhaler 90 mcg/actuation Aerosol 90 mcg/actuation 4 inhalations ld1 Inhalation once Route: Inhalation; 08:37 Drug: NS 0.9% IV 1000 ml IV at 1 bolus Per protocol; 1000 mL bolus Route: IV; Rate: 1 ld1 bolus; Site: right forearm; 08:58 Drug: Potassium Chloride PO 40 mEq PO once Route: PO; ld1 Medication: 08:08 VIS not applicable for this client. ld1 Outcome: 08:58 Condition: stable ld1 08:59 Discharge ordered by . ec2 09:59 Discharged to home ambulatory, ld1 09:59 Discharge instructions given to patient, Instructed on discharge instructions, follow up and referral plans. Demonstrated understanding of instructions, follow-up care, 10:11 Patient left the ED. ld1 Signatures: Dispatcher [employer] EDEmi Green RN RN Renetta Cool RN RN ld1 [place] Banerjee mg5 Mateus Guillen MD MD ec2 Corrections: (The following items were deleted from the chart) 07:54 07:52 Allergies: No Known Allergies; hb hb 07:54 07:52 PMHx: Hypertensive disorder; hb hb
--- NOTE | 2023-07-03 09:00 | EDPHYS ---
Physician Documentation [facility] Name: Eugenio Villarreal Age: 58 yrs Sex: Male : 1965 Arrival Date: 07/03/2023 Time: 07:36 Bed 14 Private MD: ED Physician Mateus Guillen HPI: 07/03 08:11 This 58 yrs old Male presents to ER via Ambulatory with complaints of Chest ec2 Pain - Covid Positive. 08:11 Today due to concern for progressive shortness of breath. Patient with recent COVID ec2 diagnosis approximately 1 week ago, states that he is having some general shortness of breath, reports some congestion as well. Patient reports no chest pain. States that yesterday he felt a little lightheaded. Denies any vomiting however is complaining of nausea, no diarrhea. Patient denies any abdominal pain. Patient reports history of hypertension.. Historical: - Allergies: 07:52 Clarithromycin; hb - Home Meds: 07:52 amlodipine oral [Active]; Keppra Oral [Active]; Prilosec Oral [Active]; hb - PMHx: 07:52 Seizure; Hypertension; hb - PSHx: 07:52 None; hb - Immunization history:: Adult Immunizations up to date. - Social history:: Smoking status: Patient denies any tobacco usage or history of. ROS: 08:11 Constitutional: as per hpi ec2 Exam: 08:11 Constitutional: GEN: NAD Head: atraumatic Eyes: EOMI Ears: External ears are ec2 normal. CV: regular rate LUNGS: no respiratory distress, no wheezes, no rales, no rhonchi ABD: non-distended, soft, nontender, no guarding, nonrigid SKIN: no evidence of rashes MSK: no evidence of trauma NEURO: moves all extremities equally Vital Signs: 07:50 BP 146 / 106; Pulse 72; Resp 17; Temp 98.8(O); Pulse Ox 99% on R/A; Weight 71.67 kg; hb Height 5 ft. 7 in. ; Pain /10; 08:58 BP 128 / 74; Pulse 64; Resp 18; Pulse Ox 98% on R/A; ld1 07:50 Body Mass Index 24.75 (71.67 kg, 170.18 cm) hb 07:50 Pain Scale: Adult hb MDM: 07:48 Patient medically screened. ec2 07:54 ED course: EKG independently reviewed and interpreted by me, shows normal sinus rhythm, ec2 rate of 69, no acute ST segment elevations, nonconcerning intervals.. 08:11 ED course: Patient arrives today due to concern for progressive shortness of breath in ec2 the setting of known COVID positivity. Examination remarkable for well-appearing nontoxic dividual was in no acute respiratory distress who has a no focal lung sounds appreciated on examination. Will obtain lab work, EKG already obtained, will obtain chest x-ray and treat the patient's symptoms with crystalloid, Zofran and albuterol. Currently considering shortness of breath secondary to patient's known COVID status, low suspicion for PE given lack of tachypnea, hypoxia or tachycardia. Low suspicion for ACS.. 08:52 ED course: Patient is lab test remarkable for slight hypokalemia with potassium of 2.7. ec2 CBC is reassuring without leukocytosis, troponin within normal ranges. . 08:53 ED course: Chest x-ray independently reviewed and interpreted by me, shows no acute ec2 intrathoracic process.. 08:58 Data reviewed: vital signs. ED course: On reassessment patient remains well-appearing ec2 in no acute distress, does report subjective improvement in his dyspnea. Will discharge home with prescription for Zofran. I suspect symptoms are consistent with patient's known COVID diagnosis. I considered other process such as PE however patient with reassuring vital signs. Will discharge home.. 07/03 07:54 Order name: Basic Metabolic Panel; Complete Time: 08:52 ec2 07/03 07:54 Order name: CBC with Diff; Complete Time: 08:52 ec2 07/03 07:54 Order name: Troponin HS; Complete Time: 08:52 ec2 07/03 07:54 Order name: XRAY Chest (1 view); Complete Time: 09:25 ec2 07/03 07:54 Order name: EKG; Complete Time: 07:54 ec2 07/03 07:54 Order name: Cardiac monitoring; Complete Time: 08:01 ec2 07/03 07:54 Order name: EKG - Nurse/Tech; Complete Time: 08:01 ec2 07/03 07:54 Order name: IV Saline Lock; Complete Time: 08:08 ec2 07/03 07:54 Order name: Labs collected and sent; Complete Time: 08:08 ec2 07/03 07:54 Order name: O2 Per Protocol; Complete Time: 08: ec2 07/03 07:54 Order name: O2 Sat Monitoring; Complete Time: 08: ec2 Administered Medications: 08:36 Drug: Ondansetron IVP 4 mg IVP once; over 2 minutes Route: IVP; Site: right forearm; ld1 08:37 Drug: Albuterol AEPB Inhaler 90 mcg/actuation Aerosol 90 mcg/actuation 4 inhalations ld1 Inhalation once Route: Inhalation; 08:37 Drug: NS 0.9% IV 1000 ml IV at 1 bolus Per protocol; 1000 mL bolus Route: IV; Rate: 1 ld1 bolus; Site: right forearm; 08:58 Drug: Potassium Chloride PO 40 mEq PO once Route: PO; ld1 Disposition Summary: 07/03/23 08:59 Discharge Ordered Notes: Location: Home ec2 Condition: Stable ec2 Diagnosis - Covid ec2 - Hypokalemia ec2 - Dyspnea ec2 Discharge Instructions: - Discharge Summary Sheet ec2 - Potassium Content of Foods ec2 - Hypokalemia ec2 - COVID-19 ec2 Forms: - Medication Reconciliation Form ec2 - Thank You Letter ec2 - Antibiotic Education ec2 - Prescription Opioid Use ec2 - Patient Portal Instructions ec2 - Leadership Thank You Letter ec2 Signatures: Dispatcher [employer] Emi Armijo RN RN Renetta Cool RN RN ld1 Mateus Guillen MD MD ec2 Corrections: (The following items were deleted from the chart) 07:54 07:52 Allergies: No Known Allergies; hb hb 07:54 07:52 PMHx: Hypertensive disorder; hb hb
[2023-07-03] MEDS ORDERED: POTASSIUM CL SA 10 MEQ TAB PO ONE (09:13)
--- NOTE | 2023-07-03 09:17 | RAD REPORT ---
EXAM DESCRIPTION: Kamlesh Single View07/03/2023 8:04 am CLINICAL HISTORY: Chest pain COMPARISON: none FINDINGS: The lungs appear clear of acute infiltrate. The heart is normal size IMPRESSION: No acute abnormalities displayed
[2023-07-03 10:19] VITALS: TEMP 98.8
[2023-07-03 10:22] VITALS: BP 128/74; O2SAT 98
--- NOTE | 2023-07-05 07:54 | EKG ---
Test Date: 2023-07-03 Test Time: 07:50:40 Bridge/Structure Inspection Team Leader: ZACHARIAH MEASUREMENT RESULTS: Intervals: Rate: 69 [place]: 134 QRSD: 78 QT: 398 QTc: 426 [place]: P: 62 [place]: 134 QRS: 49 T: 53 INTERPRETIVE STATEMENTS: Normal sinus rhythm Normal ECG Compared to ECG 10/02/2015 15:21:41 Sinus bradycardia no longer present Electronically Signed On 07-05-23 07:51:24 CDT by Jerry Kimbrough
== END 2023-07-03 10:11 | disposition home or self-care (01) ==
LOC: ER 07:36
DX: U07.1 COVID-19 (principal); E87.6 Hypokalemia; Z88.3 Allergy status to other anti-infective agents
CPT/HCPCS: 36415; 71045; 80048; 84484; 85025; 93005; 96374; 99285; J2405; J7030

== ENCOUNTER → 2023-10-01 | Emergency (ER) | payer SELFPAY ==
[~2023-10-01] MED LIST: CYCLOBENZAPRINE 10 MG TAB ONE; FAMOTIDINE 20 MG TAB ONE; HYDROCODONE/APAP 10/325 TAB ONE; KETOROLAC 30 MG/ML INJ ONE; dexAMETHasone 10 MG/ML VIAL ONE
--- OUTSIDE RECORDS SUMMARY | 2023-10-01 11:47 | XMS REPORT | Continuity of Care Document ---
Author Name Unknown Address [address] [facility] [address] [place] [address] [facility] thconnect Address [address] 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 Role Phone Blanco Vázquez MD Primary Care Physician Victoria Avila MD Attending Clinician Blanco Vázquez MD Attending Clinician + [phone] BLANCO VÁZQUEZ Attending Clinician UnaFRANKIE Peralta Attending Clinician Unavail able FRANKIE GALVAN Attending Clinician Unavail able Doctor Unassigned, Moro Attending Clinician U Khurram York Attending Clinician [phone] KHURRAM DISLA Attending Clinician Unavailable CHANDLER BROWER Attending Clinician UnavailMARYLOU Cunningham Attending Clinician Unavail able MARYLOU FUNEZ Attending Clinician Unavail francisco Cottrell RN, Marina Montoya Attending Clinician Unavailab Sanjeev NO, Marylou Webster Attending Clinician Only, Ang Db Test Attending Clinician UnavailOnelia Dozier Attending Clinician [phone] DANIEL ASHER Attending Clinician UnavailEmi Hampton PT Attending Clinician UnavailMeño Membreno Attending Clinician [phone] MEÑO CAPELLAN Attending Clinician Unavailable Cowart PAC, Zuleika S Attending Clinician [phone] Randa Erazo Attending Clinician + [phone] Rupa Hung Attending Clinician [phone] RUPA GRAMAJO Attending Clinician Unavailable Frankie Galvan MD Attending Clinician +- [phone] Darlin Munoz DO Attending Clinician [phone] Herson Douglas MD Attending Clinician [phone] Liam CORTES, Daisha Sanderson Attending Clinician [phone] Anh ANTHONY, Angela Funk Attending Clinician [phone] MEÑO CAPELLAN Admitting Clinician Unavailable Herson Douglas MD Admitting Clinician [phone] Payers Payer Name Policy Type Policy Number Effective Date Expirati on Date Source [facility] [id number] 2017 00:00:00 Problems Condition Name Condition Details Condition Category Status Onset Date Resolution Date Last Treatment Date Treating Clinician Comments Source Seizure disorder Seizure disorder Disease Active 04-14 00:00: 00 [facility] Gastroesop hageal reflux disease without esophagiti s Gastroesop hageal reflux disease without esophagiti s Disease Active 04-14 00:00: 00 [facility] Essential hypertensi on Essential hypertensi on Disease Active 2019-09 00:00: 00 [facility] DARREN (acute kidney injury) DARREN (acute kidney injury) Disease Active 2019-09 00:00: 00 [facility] Elevated troponin Elevated troponin Disease Active 2019-09 00:00: 00 [facility] Elevated troponin Elevated troponin Disease Active 2019-09 00:00: 00 [facility] Allergies, Adverse Reactions, Alerts Allergy Name Allergy Type Status Severity Reaction(s) Onset Date Inactive Date Treating Clinician Comments Source NO KNOWN ALLERGIE S Drug Class Active [facility] Social History Social Habit Start Date Stop Date Quantity Comments Source Gender identity [facility] 2023-07-06 00:00:00 2023-07-06 00:00:00 Current drinker of alcohol (finding) [facility] History of Social function 2023-05-24 00:00:00 2023-05-24 00:00:00 [facility] Exposure to SARS-CoV-2 (event) 2022-04-04 00:00:00 2022-04-14 13:54:00 Not sure [facility] Tobacco use and exposure 2022-04-14 00:00:00 2022-04-14 00:00:00 Smokeless tobacco non-user [facility] History SDOH Food Scarcity 2020-07-09 00:00:00 2020-07-09 00:00:00 1 [facility] History SDOH Transport Med 2020-07-09 00:00:00 2020-07-09 00:00:00 2 [facility] History SDOH Transport Non-Med 2020-07-09 00:00:00 2020-07-09 00:00:00 2 [facility] Education - What is the highest level of school you have completed or the highest degree you have received? 2020-07-09 00:00:00 2020-07-09 00:00:00 High school graduate [facility] History SDOH Financial 2020-07-09 00:00:00 2020-07-09 00:00:00 3 [facility] History SDOH Food Worry 2020-07-09 00:00:00 2020-07-09 00:00:00 1 [facility] Sex Assigned At 1965 00:00:00 1965 00:00:00 [facility] Smoking Status Start Date Stop Date Source Never smoked tobacco [facility] Medications Ordered Medication Name Filled Medication Name Start Date Stop Date Current Medication? Ordering Clinician Indication Dosage Frequency Signature (SIG) Comments Components Source OMEPRAZOLE 20 mg capsule 2022-09 00:00: 00 Yes [id number] TAKE ONE CAPSULE BY MOUTH EVERY MORNING [facility] azithromyci n 500 mg tablet 2022-09 00:00: 00 Yes [id number] 500mg Take 1 tablet by mouth in the morning. [facility] azithromyci n 500 mg tablet 2022-09 00:00: 00 Yes [id number] 500mg Take 1 tablet by mouth in the morning. [facility] azithromyci n 500 mg tablet 2022-09 00:00: 00 Yes [id number] 500mg Take 1 tablet by mouth in the morning. [facility] azithromyci n 500 mg tablet 2022-09 00:00: 00 Yes [id number] 500mg Take 1 tablet by mouth in the morning. [facility] methocarbam oL 500 mg tablet 05-24 00:00: 00 Yes [id number] 500mg Take 1 tablet by mouth 4 (four) times daily as needed for Pain (scale 4-6). [facility] amLODIPine- benazepriL 5-20 mg per capsule 05-24 00:00: 00 Yes [id number] TAKE ONE CAPSULE BY MOUTH EVERY MORNING [facility] methocarbam oL 500 mg tablet 05-24 00:00: 00 Yes [id number] 500mg Take 1 tablet by mouth 4 (four) times daily as needed for Pain (scale 4-6). [facility] amLODIPine- benazepriL 5-20 mg per capsule 05-24 00:00: 00 Yes [id number] TAKE ONE CAPSULE BY MOUTH EVERY MORNING [facility] methocarbam oL 500 mg tablet 05-24 00:00: 00 Yes [id number] 500mg Take 1 tablet by mouth 4 (four) times daily as needed for Pain (scale 4-6). [facility] amLODIPine- benazepriL 5-20 mg per capsule 05-24 00:00: 00 Yes [id number] TAKE ONE CAPSULE BY MOUTH EVERY MORNING [facility] methocarbam oL 500 mg tablet 05-24 00:00: 00 Yes [id number] 500mg Take 1 tablet by mouth 4 (four) times daily as needed for Pain (scale 4-6). [facility] amLODIPine- benazepriL 5-20 mg per capsule 05-24 00:00: 00 Yes [id number] TAKE ONE CAPSULE BY MOUTH EVERY MORNING [facility] methocarbam oL 500 mg tablet 2022-0 05-24 00:00: 00 Yes [id number] 500mg Take 1 tablet by mouth 4 (four) times daily as needed for Pain (scale 4-6). [facility] amLODIPine- benazepriL 5-20 mg per capsule 2022-0 05-24 00:00: 00 Yes [id number] TAKE ONE CAPSULE BY MOUTH EVERY MORNING [facility] methocarbam oL 500 mg tablet 2022-0 05-24 00:00: 00 Yes [id number] 500mg Take 1 tablet by mouth 4 (four) times daily as needed for Pain (scale 4-6). [facility] amLODIPine- benazepriL 5-20 mg per capsule 2022-0 05-24 00:00: 00 Yes [id number] TAKE ONE CAPSULE BY MOUTH EVERY MORNING [facility] omeprazole 20 mg capsule 2022-0 05-12 00:00: 00 Yes [id number] 20mg Take 1 capsule by mouth in the morning. [facility] omeprazole 20 mg capsule 3-0 05-12 00:00: 00 Yes [id number] 20mg Take 1 capsule by mouth in the morning. [facility] omeprazole 20 mg capsule 2022-0 05-12 00:00: 00 Yes [id number] 20mg Take 1 capsule by mouth in the morning. [facility] omeprazole 20 mg capsule 3-0 05-12 00:00: 00 Yes [id number] 20mg Take 1 capsule by mouth in the morning. [facility] omeprazole 20 mg capsule 3-0 05-12 00:00: 00 Yes [id number] 20mg Take 1 capsule by mouth in the morning. [facility] omeprazole 20 mg capsule 3-0 05-12 00:00: 00 Yes [id number] 20mg Take 1 capsule by mouth in the morning. [facility] omeprazole 20 mg capsule 3-0 05-12 00:00: 00 Yes [id number] 20mg Take 1 capsule by mouth in the morning. [facility] omeprazole 20 mg capsule 0 9-07 00:00: 00 12 00:00 :00 No [id number] 20mg Take 1 capsule by mouth in the morning. [facility] amLODIPine- benazepriL 5-20 mg per capsule 0 05-02 00:00: 00 Yes [id number] TAKE ONE CAPSULE BY MOUTH EVERY MORNING [facility] amLODIPine- benazepriL 5-20 mg per capsule 0 05-02 00:00: 00 Yes [id number] TAKE ONE CAPSULE BY MOUTH EVERY MORNING [facility] amLODIPine- benazepriL 5-20 mg per capsule 0 05-02 00:00: 00 Yes [id number] TAKE ONE CAPSULE BY MOUTH EVERY MORNING [facility] amLODIPine- benazepriL 5-20 mg per capsule 05-02 00:00: 00 05-24 00:00 :00 No [id number] TAKE ONE CAPSULE BY MOUTH EVERY MORNING [facility] amLODIPine- benazepriL 5-20 mg per capsule 05-02 00:00: 00 05-24 00:00 :00 No [id number] TAKE ONE CAPSULE BY MOUTH EVERY MORNING [facility] levETIRAcet am 1,000 mg tablet 04-26 00:00: 00 Yes [id number] 1000mg Take 1 tablet by mouth in the morning and 1 tablet in the evening. [facility] levETIRAcet am 1,000 mg tablet 04-26 00:00: 00 Yes [id number] 1000mg Take 1 tablet by mouth in the morning and 1 tablet in the evening. [facility] levETIRAcet am 1,000 mg tablet 04-26 00:00: 00 Yes [id number] 1000mg Take 1 tablet by mouth in the morning and 1 tablet in the evening. [facility] levETIRAcet am 1,000 mg tablet 04-26 00:00: 00 Yes [id number] 1000mg Take 1 tablet by mouth in the morning and 1 tablet in the evening. [facility] levETIRAcet am 1,000 mg tablet 2022-0 8 00:00: 00 Yes [id number] 1000mg Take 1 tablet by mouth in the morning and 1 tablet in the evening. [facility] levETIRAcet am 1,000 mg tablet 2022-0 04-26 00:00: 00 Yes [id number] 1000mg Take 1 tablet by mouth in the morning and 1 tablet in the evening. [facility] levETIRAcet am 1,000 mg tablet 2022-0 8 00:00: 00 Yes [id number] 1000mg Take 1 tablet by mouth in the morning and 1 tablet in the evening. [facility] levETIRAcet am 1,000 mg tablet 2022-0 04-26 00:00: 00 Yes [id number] 1000mg Take 1 tablet by mouth in the morning and 1 tablet in the evening. [facility] levETIRAcet am 1,000 mg tablet 2022-0 04-26 00:00: 00 Yes [id number] 1000mg Take 1 tablet by mouth in the morning and 1 tablet in the evening. [facility] levETIRAcet am 1,000 mg tablet 2022-0 04-26 00:00: 00 Yes [id number] 1000mg Take 1 tablet by mouth in the morning and 1 tablet in the evening. [facility] levETIRAcet am 1,000 mg tablet 2022-0 04-26 00:00: 00 Yes [id number] 1000mg Take 1 tablet by mouth in the morning and 1 tablet in the evening. [facility] AMLODIPINE- BENAZEPRIL 5-20 mg per capsule 2022-0 03-02 00:00: 00 Yes [id number] TAKE ONE CAPSULE BY MOUTH EVERY MORNING [facility] AMLODIPINE- BENAZEPRIL 5-20 mg per capsule 2022-0 6 00:00: 00 Yes [id number] TAKE ONE CAPSULE BY MOUTH EVERY MORNING [facility] AMLODIPINE- BENAZEPRIL 5-20 mg per capsule 2022-0 628 00:00: 00 Yes [id number] TAKE ONE CAPSULE BY MOUTH EVERY MORNING [facility] AMLODIPINE- BENAZEPRIL 5-20 mg per capsule 2022-0 6-28 00:00: 00 05-02 00:00 :00 No [id number] TAKE ONE CAPSULE BY MOUTH EVERY MORNING [facility] AMLODIPINE- BENAZEPRIL 5-20 mg per capsule 2022-0 6-28 00:00: 00 05-02 00:00 :00 No [id number] TAKE ONE CAPSULE BY MOUTH EVERY MORNING [facility] amLODIPine- benazepriL 5-20 mg per capsule 2022-0 5-30 00:00: 00 Yes [id number] TAKE ONE CAPSULE BY MOUTH EVERY MORNING [facility] amLODIPine- benazepriL 5-20 mg per capsule 0 530 00:00: 00 03-02 00:00 :00 No [id number] TAKE ONE CAPSULE BY MOUTH EVERY MORNING [facility] AMLODIPINE- BENAZEPRIL 5-20 mg per capsule 2022-0 4- 00:00: 00 Yes [id number] TAKE ONE CAPSULE BY MOUTH EVERY MORNING [facility] AMLODIPINE- BENAZEPRIL 5-20 mg per capsule 2022-0 4-26 00:00: 00 02-01 00:00 :00 No [id number] TAKE ONE CAPSULE BY MOUTH EVERY MORNING [facility]IL 5-20 mg per capsule 2022-0 3-23 00:00: 00 Yes [id number] TAKE ONE CAPSULE BY MOUTH EVERY MORNING [facility] AMLODIPINE- BENAZEPRIL 5-20 mg per capsule 2022-0 3-23 00:00: 00 12-29 00:00 :00 No [id number] TAKE ONE CAPSULE BY MOUTH EVERY MORNING [facility] amLODIPine- benazepriL 5-20 mg per capsule 2022-0 2-22 00:00: 00 Yes [id number] 1{capsu le} Take 1 capsule by mouth in the morning. [facility] amLODIPine- benazepriL 5-20 mg per capsule 2022-0 2-22 00:00: 00 11-25 00:00 :00 No [id number] 1{capsu le} Take 1 capsule by mouth in the morning. [facility] levETIRAcet am 1,000 mg tablet 2-0 8-10 00:00: 00 Yes [id number] 1000mg Take 1 tablet by mouth in the morning and 1 tablet in the evening. [facility] omeprazole 20 mg capsule 2-0 8-10 00:00: 00 Yes [id number] 20mg Take 1 capsule by mouth in the morning. [facility] levETIRAcet am 1,000 mg tablet 2-0 8-10 00:00: 00 Yes [id number] 1000mg Take 1 tablet by mouth in the morning and 1 tablet in the evening. [facility] omeprazole 20 mg capsule 2-0 8-10 00:00: 00 Yes [id number] 20mg Take 1 capsule by mouth in the morning. [facility] levETIRAcet am 1,000 mg tablet 2-0 8-10 00:00: 00 Yes [id number] 1000mg Take 1 tablet by mouth in the morning and 1 tablet in the evening. [facility] omeprazole 20 mg capsule 2-0 8-10 00:00: 00 Yes [id number] 20mg Take 1 capsule by mouth in the morning. [facility] omeprazole 20 mg capsule 2-0 8-10 00:00: 00 Yes [id number] 20mg Take 1 capsule by mouth in the morning. [facility] omeprazole 20 mg capsule 2022-0 8-10 00:00: 00 Yes [id number] 20mg Take 1 capsule by mouth in the morning. [facility] omeprazole 20 mg capsule 2022-0 8-10 00:00: 00 Yes [id number] 20mg Take 1 capsule by mouth in the morning. [facility] levETIRAcet am 1,000 mg tablet 2-0 8-10 00:00: 00 Yes [id number] 1000mg Take 1 tablet by mouth in the morning and 1 tablet in the evening. [facility] omeprazole 20 mg capsule 2022-0 8-10 00:00: 00 Yes [id number] 20mg Take 1 capsule by mouth in the morning. [facility] amLODIPine- benazepriL 5-20 mg per capsule 2021-0 8-10 00:00: 00 Yes [id number] 1{capsu le} Take 1 capsule by mouth in the morning. [facility] levETIRAcet am 1,000 mg tablet 2021-0 8-10 00:00: 00 Yes [id number] 1000mg Take 1 tablet by mouth in the morning and 1 tablet in the evening. [facility] omeprazole 20 mg capsule 2021-0 8-10 00:00: 00 Yes [id number] 20mg Take 1 capsule by mouth in the morning. [facility] levETIRAcet am 1,000 mg tablet 2021-0 8-10 00:00: 00 Yes [id number] 1000mg Take 1 tablet by mouth in the morning and 1 tablet in the evening. [facility] omeprazole 20 mg capsule 2021-0 8-10 00:00: 00 Yes [id number] 20mg Take 1 capsule by mouth in the morning. [facility] omeprazole 20 mg capsule 2021-0 8-10 00:00: 00 05-12 00:00 :00 No [id number] 20mg Take 1 capsule by mouth in the morning. [facility] omeprazole 20 mg capsule 2021-0 8-10 00:00: 00 05-12 00:00 :00 No [id number] 20mg Take 1 capsule by mouth in the morning. [facility] levETIRAcet am 1,000 mg tablet 2021-0 8-10 00:00: 00 04-26 00:00 :00 No [id number] 1000mg Take 1 tablet by mouth in the morning and 1 tablet in the evening. [facility] amLODIPine- benazepriL 5-20 mg per capsule 2021-0 8-10 00:00: 00 10-27 00:00 :00 No [id number] 1{capsu le} Take 1 capsule by mouth in the morning. [facility] AMLODIPINE- BENAZEPRIL 5-20 mg per capsule 2021-0 5-24 00:00: 00 04-14 00:00 :00 No [id number] TAKE ONE CAPSULE BY MOUTH DAILY [facility] meloxicam 15 mg tablet 0 03-24 00:00: 00 Yes [id number] 15mg Take 1 tablet by mouth daily. [facility] 0 03-24 00:00: 00 Yes [id number] 15mg Take 1 tablet by mouth daily. [facility] meloxicam 15 mg tablet 0 03-24 00:00: 00 Yes [id number] 15mg Take 1 tablet by mouth daily. [facility] meloxicam 15 mg tablet 0 03-24 00:00: 00 Yes [id number] 15mg Take 1 tablet by mouth daily. [facility] meloxicam 15 mg tablet 0 03-24 00:00: 00 Yes [id number] 15mg Take 1 tablet by mouth daily. [facility] meloxicam 15 mg tablet 0 03-24 00:00: 00 Yes [id number] 15mg Take 1 tablet by mouth daily. [facility] meloxicam 15 mg tablet 0 03-24 00:00: 00 Yes [id number] 15mg Take 1 tablet by mouth daily. [facility] meloxicam 15 mg tablet 03-24 00:00: 00 Yes [id number] 15mg Take 1 tablet by mouth daily. [facility] meloxicam 15 mg tablet 0 03-24 00:00: 00 Yes [id number] 15mg Take 1 tablet by mouth daily. [facility] meloxicam 15 mg tablet 0 03-24 00:00: 00 Yes [id number] 15mg Take 1 tablet by mouth daily. [facility] meloxicam 15 mg tablet 0 03-24 00:00: 00 Yes [id number] 15mg Take 1 tablet by mouth daily. [facility] meloxicam 15 mg tablet 0 03-24 00:00: 00 05-24 00:00 :00 No [id number] 15mg Take 1 tablet by mouth daily. [facility] meloxicam 15 mg tablet 03-24 00:00: 00 05-24 00:00 :00 No [id number] 15mg Take 1 tablet by mouth daily. [facility] meloxicam 15 mg tablet 03-24 00:00: 00 05-24 00:00 :00 No [id number] 15mg Take 1 tablet by mouth daily. [facility] methocarbam oL 500 mg tablet 01-06 00:00: 00 Yes [id number] 500mg Take 1 tablet by mouth 4 (four) times daily as needed for Pain (scale 4-6). [facility] methocarbam oL 500 mg tablet 01-06 00:00: 00 Yes [id number] 500mg Take 1 tablet by mouth 4 (four) times daily as needed for Pain (scale 4-6). [facility] methocarbam oL 500 mg tablet 01-06 00:00: 00 Yes [id number] 500mg Take 1 tablet by mouth 4 (four) times daily as needed for Pain (scale 4-6). [facility] methocarbam oL 500 mg tablet 01-06 00:00: 00 Yes [id number] 500mg Take 1 tablet by mouth 4 (four) times daily as needed for Pain (scale 4-6). [facility] methocarbam oL 500 mg tablet 01-06 00:00: 00 Yes [id number] 500mg Take 1 tablet by mouth 4 (four) times daily as needed for Pain (scale 4-6). [facility] methocarbam oL 500 mg tablet 01-06 00:00: 00 Yes [id number] 500mg Take 1 tablet by mouth 4 (four) times daily as needed for Pain (scale 4-6). [facility] methocarbam oL 500 mg tablet 01-06 00:00: 00 Yes [id number] 500mg Take 1 tablet by mouth 4 (four) times daily as needed for Pain (scale 4-6). [facility] methocarbam oL 500 mg tablet 0 01-06 00:00: 00 Yes [id number] 500mg Take 1 tablet by mouth 4 (four) times daily as needed for Pain (scale 4-6). [facility] methocarbam oL 500 mg tablet 01-06 00:00: 00 Yes [id number] 500mg Take 1 tablet by mouth 4 (four) times daily as needed for Pain (scale 4-6). [facility] methocarbam oL 500 mg tablet 01-06 00:00: 00 Yes [id number] 500mg Take 1 tablet by mouth 4 (four) times daily as needed for Pain (scale 4-6). [facility] methocarbam oL 500 mg tablet 01-06 00:00: 00 Yes [id number] 500mg Take 1 tablet by mouth 4 (four) times daily as needed for Pain (scale 4-6). [facility] methocarbam oL 500 mg tablet 01-06 00:00: 00 05-24 00:00 :00 No [id number] 500mg Take 1 tablet by mouth 4 (four) times daily as needed for Pain (scale 4-6). [facility] methocarbam oL 500 mg tablet 01-06 00:00: 00 05-24 00:00 :00 No [id number] 500mg Take 1 tablet by mouth 4 (four) times daily as needed for Pain (scale 4-6). [facility] methocarbam oL 500 mg tablet 01-06 00:00: 00 05-24 00:00 :00 No [id number] 500mg Take 1 tablet by mouth 4 (four) times daily as needed for Pain (scale 4-6). [facility] lidocaine 5 % (700 mg/patch) patch 12-19 00:00: 00 Yes [id number] Apply 1-2 patches to the area and leave in place for up to 12 hours in a day. Do not reapply patches until the next day. [facility] meloxicam 15 mg TbDL 12-19 00:00: 00 Yes [id number] 1{tbl} Take 1 tablet by mouth daily. [facility] lidocaine 5 % (700 mg/patch) patch 16 00:00: 00 Yes [id number] Apply 1-2 patches to the area and leave in place for up to 12 hours in a day. Do not reapply patches until the next day. [facility] meloxicam 15 mg TbDL 16 00:00: 00 Yes [id number] 1{tbl} Take 1 tablet by mouth daily. [facility] lidocaine 5 % (700 mg/patch) patch 16 00:00: 00 Yes [id number] Apply 1-2 patches to the area and leave in place for up to 12 hours in a day. Do not reapply patches until the next day. [facility] meloxicam 15 mg TbDL 12-19 00:00: 00 Yes [id number] 1{tbl} Take 1 tablet by mouth daily. [facility] % (700 mg/patch) patch 12-19 00:00: 00 Yes [id number] Apply 1-2 patches to the area and leave in place for up to 12 hours in a day. Do not reapply patches until the next day. [facility] meloxicam 15 mg TbDL 12-19 00:00: 00 Yes [id number] 1{tbl} Take 1 tablet by mouth daily. [facility] % (700 mg/patch) patch 12-19 00:00: 00 Yes [id number] Apply 1-2 patches to the area and leave in place for up to 12 hours in a day. Do not reapply patches until the next day. [facility] meloxicam 15 mg TbDL 16 00:00: 00 Yes [id number] 1{tbl} Take 1 tablet by mouth daily. [facility] lidocaine 5 % (700 mg/patch) patch 16 00:00: 00 Yes [id number] Apply 1-2 patches to the area and leave in place for up to 12 hours in a day. Do not reapply patches until the next day. [facility] meloxicam 15 mg TbDL 16 00:00: 00 Yes [id number] 1{tbl} Take 1 tablet by mouth daily. [facility] lidocaine 5 % (700 mg/patch) patch 12-19 00:00: 00 Yes [id number] Apply 1-2 patches to the area and leave in place for up to 12 hours in a day. Do not reapply patches until the next day. [facility] meloxicam 15 mg TbDL 12-19 00:00: 00 Yes [id number] 1{tbl} Take 1 tablet by mouth daily. [facility] % (700 mg/patch) patch 12-19 00:00: 00 Yes [id number] Apply 1-2 patches to the area and leave in place for up to 12 hours in a day. Do not reapply patches until the next day. [facility] meloxicam 15 mg TbDL 12-19 00:00: 00 Yes [id number] 1{tbl} Take 1 tablet by mouth daily. [facility] 5 % (700 mg/patch) patch 12-19 00:00: 00 Yes [id number] Apply 1-2 patches to the area and leave in place for up to 12 hours in a day. Do not reapply patches until the next day. [facility] mg TbDL 12-19 00:00: 00 Yes [id number] 1{tbl} Take 1 tablet by mouth daily. [facility] 5 % (700 mg/patch) patch 12-19 00:00: 00 Yes [id number] Apply 1-2 patches to the area and leave in place for up to 12 hours in a day. Do not reapply patches until the next day. [facility] meloxicam 15 mg TbDL 16 00:00: 00 Yes [id number] 1{tbl} Take 1 tablet by mouth daily. [facility] 5 % (700 mg/patch) patch 16 00:00: 00 Yes [id number] Apply 1-2 patches to the area and leave in place for up to 12 hours in a day. Do not reapply patches until the next day. [facility] meloxicam 15 mg TbDL 16 00:00: 00 Yes [id number] 1{tbl} Take 1 tablet by mouth daily. [facility] lidocaine 5 % (700 mg/patch) patch 16 00:00: 00 05-24 00:00 :00 No [id number] Apply 1-2 patches to the area and leave in place for up to 12 hours in a day. Do not reapply patches until the next day[facility] meloxicam 15 mg TbDL 16 00:00: 00 05-24 00:00 :00 No [id number] 1{tbl} Take 1 tablet by mouth daily. [facility] lidocaine 5 % (700 mg/patch) patch 16 00:00: 00 05-24 00:00 :00 No [id number] Apply 1-2 patches to the area and leave in place for up to 12 hours in a day. Do not reapply patches until the next day. [facility] meloxicam 15 mg TbDL 16 00:00: 00 05-24 00:00 :00 No [id number] 1{tbl} Take 1 tablet by mouth daily. [facility] lidocaine 5 % (700 mg/patch) patch 16 00:00: 00 05-24 00:00 :00 No [id number] Apply 1-2 patches to the area and leave in place for up to 12 hours in a day. Do not reapply patches until the next day. [facility] meloxicam 15 mg TbDL 16 00:00: 00 05-24 00:00 :00 No [id number] 1{tbl} Take 1 tablet by mouth daily. [facility] methylPREDN ISolone (MEDROL, CLARY,) 4 mg tablets 4-14 00:00: 00 Yes [id number] 84mg Take 21 tablets by mouth SEE-INSTRU CTIONS. follow package directions [facility] methylPREDN ISolone (MEDROL, CLARY,) 4 mg tablets 0 4-14 00:00: 00 Yes [id number] 84mg Take 21 tablets by mouth SEE-INSTRU CTIONS. follow package directions [facility] methylPREDN ISolone (MEDROL, CLARY,) 4 mg tablets 0 414 00:00: 00 Yes [id number] 84mg Take 21 tablets by mouth SEE-INSTRU CTIONS. follow package directions [facility] methylPREDN ISolone (MEDROL, CLARY,) 4 mg tablets 14 00:00: 00 Yes [id number] 84mg Take 21 tablets by mouth SEE-INSTRU CTIONS. follow package directions [facility] methylPREDN ISolone (MEDROL, CLARY,) 4 mg tablets 14 00:00: 00 Yes [id number] 84mg Take 21 tablets by mouth SEE-INSTRU CTIONS. follow package directions [facility] methylPREDN ISolone (MEDROL, CLARY,) 4 mg tablets 14 00:00: 00 Yes [id number] 84mg Take 21 tablets by mouth SEE-INSTRU CTIONS. follow package directions [facility] methylPREDN ISolone (MEDROL, CLARY,) 4 mg tablets 0 414 00:00: 00 Yes [id number] 84mg Take 21 tablets by mouth SEE-INSTRU CTIONS. follow package directions [facility] methylPREDN ISolone (MEDROL, CLARY,) 4 mg tablets 0 4-14 00:00: 00 Yes [id number] 84mg Take 21 tablets by mouth SEE-INSTRU CTIONS. follow package directions [facility] methylPREDN ISolone (MEDROL, CLARY,) 4 mg tablets 0 4-14 00:00: 00 Yes [id number] 84mg Take 21 tablets by mouth SEE-INSTRU CTIONS. follow package directions [facility] methylPREDN ISolone (MEDROL, CLARY,) 4 mg tablets 0 4-14 00:00: 00 Yes [id number] 84mg Take 21 tablets by mouth SEE-INSTRU CTIONS. follow package directions [facility] methylPREDN ISolone (MEDROL, CLARY,) 4 mg tablets 12-17 00:00: 00 Yes [id number] 84mg Take 21 tablets by mouth SEE-INSTRU CTIONS. follow package directions [facility] methylPREDN ISolone (MEDROL, CLARY,) 4 mg tablets 12-17 00:00: 00 05-24 00:00 :00 No [id number] 84mg Take 21 tablets by mouth SEE-INSTRU CTIONS. follow package directions [facility] methylPREDN ISolone (MEDROL, CLARY,) 4 mg tablets 12-17 00:00: 00 05-24 00:00 :00 No [id number] 84mg Take 21 tablets by mouth SEE-INSTRU CTIONS. follow package directions [facility] methylPREDN ISolone (MEDROL, CLARY,) 4 mg tablets 12-17 00:00: 00 05-24 00:00 :00 No [id number] 84mg Take 21 tablets by mouth SEE-INSTRU CTIONS. follow package directions [facility] levETIRAcet am 1,000 mg tablet 10-15 00:00: 00 04-14 00:00 :00 No [id number] 1000mg Take 1 tablet by mouth 2 (two) times daily. [facility] omeprazole 20 mg capsule 10-15 00:00: 00 04-14 00:00 :00 No [id number] 20mg Take 1 capsule by mouth daily. [facility] albuterol 90 mcg/actuati on inhaler 04-27 00:00: 00 Yes [id number] 2{puff} Inhale 2 Puffs every 4 (four) hours as needed for Wheezing or Shortness of Breath. [facility] albuterol 90 mcg/actuati on inhaler 04-27 00:00: 00 Yes [id number] 2{puff} Inhale 2 Puffs every 4 (four) hours as needed for Wheezing or Shortness of Breath. [facility] albuterol 90 mcg/actuati on inhaler 04-27 00:00: 00 Yes [id number] 2{puff} Inhale 2 Puffs every 4 (four) hours as needed for Wheezing or Shortness of Breath. [facility] albuterol 90 mcg/actuati on inhaler 04-27 00:00: 00 Yes [id number] 2{puff} Inhale 2 Puffs every 4 (four) hours as needed for Wheezing or Shortness of Breath. [facility] albuterol 90 mcg/actuati on inhaler 04-27 00:00: 00 Yes [id number] 2{puff} Inhale 2 Puffs every 4 (four) hours as needed for Wheezing or Shortness of Breath. [facility] albuterol 90 mcg/actuati on inhaler 04-27 00:00: 00 Yes [id number] 2{puff} Inhale 2 Puffs every 4 (four) hours as needed for Wheezing or Shortness of Breath. [facility] albuterol 90 mcg/actuati on inhaler 04-27 00:00: 00 Yes [id number] 2{puff} Inhale 2 Puffs every 4 (four) hours as needed for Wheezing or Shortness of Breath. [facility] albuterol 90 mcg/actuati on inhaler 04-27 00:00: 00 Yes [id number] 2{puff} Inhale 2 Puffs every 4 (four) hours as needed for Wheezing or Shortness of Breath. [facility] albuterol 90 mcg/actuati on inhaler 04-27 00:00: 00 Yes [id number] 2{puff} Inhale 2 Puffs every 4 (four) hours as needed for Wheezing or Shortness of Breath. [facility] albuterol 90 mcg/actuati on inhaler 04-27 00:00: 00 Yes [id number] 2{puff} Inhale 2 Puffs every 4 (four) hours as needed for Wheezing or Shortness of Breath. [facility] albuterol 90 mcg/actuati on inhaler 04-27 00:00: 00 Yes [id number] 2{puff} Inhale 2 Puffs every 4 (four) hours as needed for Wheezing or Shortness of Breath. [facility] albuterol 90 mcg/actuati on inhaler 04-27 00:00: 00 05-24 00:00 :00 No [id number] 2{puff} Inhale 2 Puffs every 4 (four) hours as needed for Wheezing or Shortness of Breath. [facility] albuterol 90 mcg/actuati on inhaler 04-27 00:00: 00 05-24 00:00 :00 No [id number] 2{puff} Inhale 2 Puffs every 4 (four) hours as needed for Wheezing or Shortness of Breath. [facility] albuterol 90 mcg/actuati on inhaler 04-27 00:00: 00 05-24 00:00 :00 No [id number] 2{puff} Inhale 2 Puffs every 4 (four) hours as needed for Wheezing or Shortness of Breath. [facility] Immunizations Ordered Immunization Name Filled Immunization Name Date Status Comments Source Influenza Virus Vaccine Quad .5 mL IM 6+ MO 2020-07-10 00:00:00 Completed [facility] Influenza Virus Vaccine Quad .5 mL IM 6+ MO 2020-07-10 00:00:00 Completed [facility] Influenza Virus Vaccine Quad .5 mL IM 6+ MO 2020-07-10 00:00:00 Completed [facility] Influenza Virus Vaccine Quad .5 mL IM 6+ MO 2020-07-10 00:00:00 Completed [facility] Influenza Virus Vaccine Quad .5 mL IM 6+ MO 2020-07-10 00:00:00 Completed [facility] Influenza Virus Vaccine Quad .5 mL IM 6+ MO 2020-07-10 00:00:00 Completed [facility] Influenza Virus Vaccine Quad .5 mL IM 6+ MO (FLUZONE/FLULAVAL/F LUARIX) 2020-07-10 00:00:00 Completed [facility] Influenza Virus Vaccine Quad .5 mL IM 6+ MO (FLUZONE/FLULAVAL/F LUARIX) 2020-07-10 00:00:00 Completed [facility] Influenza Virus Vaccine Quad .5 mL IM 6+ MO (FLUZONE/FLULAVAL/F LUARIX) 2020-07-10 00:00:00 Completed [facility] Influenza Virus Vaccine Quad .5 mL IM 6+ MO (FLUZONE/FLULAVAL/F LUARIX) 2020-07-10 00:00:00 Completed [facility] Influenza Virus Vaccine Quad .5 mL IM 6+ MO 2020-07-10 00:00:00 Completed [facility] Influenza Virus Vaccine Quad .5 mL IM 6+ MO 2020-07-10 00:00:00 Completed [facility] Influenza Virus Vaccine Quad .5 mL IM 6+ MO 2020-07-10 00:00:00 Completed [facility] Influenza Virus Vaccine Quad .5 mL IM 6+ MO (FLUZONE/FLULAVAL/F LUARIX) Unknown Completed [facility] Influenza Virus Vaccine Quad .5 mL IM 6+ MO (FLUZONE/FLULAVAL/F LUARIX) Unknown Completed [facility] Influenza Virus Vaccine Quad .5 mL IM 6+ MO (FLUZONE/FLULAVAL/F LUARIX) Unknown Completed [facility] Influenza Virus Vaccine Quad .5 mL IM 6+ MO (FLUZONE/FLULAVAL/F LUARIX) Unknown Completed [facility] Influenza Virus Vaccine Quad .5 mL IM 6+ MO (FLUZONE/FLULAVAL/F LUARIX) Unknown Completed [facility] Vital Signs Vital Name Observation Time Observation Value Comments S ource Systolic blood pressure 2023-07-06 19:19:00 137 mm[Hg] [facility] Diastolic blood pressure 2023-07-06 19:19:00 79 mm[Hg] [facility] Heart rate 2023-07-06 19:19:00 64 /min [facility] Body temperature 2023-07-06 19:19:00 37 Nena [facility] Body height 2023-07-06 19:19:00 170.2 cm [facility] Body weight 2023-07-06 19:19:00 73.483 kg [facility] BMI 2023-07-06 19:19:00 25.37 kg/m2 [facility] Systolic blood pressure 2023-05-24 20:19:00 131 mm[Hg] [facility] Diastolic blood pressure 2023-05-24 20:19:00 75 mm[Hg] [facility] Heart rate 2023-05-24 20:19:00 52 /min Un[facility] Body temperature 2023-05-24 20:19:00 36.78 Nena [facility] Body height 2023-05-24 20:19:00 167.6 cm [facility] Body weight 2023-05-24 20:19:00 77.111 kg [facility] BMI 2023-05-24 20:19:00 27.44 kg/m2 [facility] Systolic blood pressure 2022-04-14 19:12:00 137 mm[Hg] [facility] Diastolic blood pressure 2022-04-14 19:12:00 72 mm[Hg] [facility] Heart rate 2022-04-14 19:12:00 56 /[facility] 2022-04-14 19:12:00 170.2 cm [facility] Body weight 2022-04-14 19:12:00 78.472 kg [facility] BMI 2022-04-14 19:12:00 27.10 kg/m2 [facility] Oxygen saturation in Arterial blood by Pulse oximetry 2022-04-14 19:12:00 99 /min [facility] Procedures Procedure Date / Time Performed Performing Clinicia n Source CONSENT/REFUSAL FOR DIAGNOSIS AND TREATMENT 2023-05-24 20:01:05 Doctor Unassigned, Moro [facility] ASSIGNMENT OF BENEFITS 2023-05-24 20:00:48 Docto r Unassigned, Moro [facility] Encounters Start Date/Time End Date/Time Encounter Type Admission Type Attending Clinicians Care Facility Care Department Encounter ID Source 2021-07-05 13:21:58 Emergency [facility] [id number] [facility] 2023-08-08 00:00:00 2023-08-08 00:00:00 Refill Victoria Avila [facility] 1..840.114 350.1.13.10 4.2.7.2.686 [id number] [id number] [facility] 2023-07-06 14:30:00 2023-07-06 15:00:00 Office Visit SuzannedaynaBlanco esquivel [facility] 1..840.114 350.1.13.10 4.2.7.2.686 [id number] [facility] 2023-07-06 14:30:00 2023-07-06 14:30:00 Outpatient BLANCO WILKINS [facility] [id number] [facility] 2023-07-01 12:40:00 2023-07-01 12:40:00 Outpatient FRANKIE CHANDLER HOWARD [facility] [id number] [facility] 2023-05-24 15:30:00 2023-05-24 15:45:00 Office Visit Manish Blanco [facility] 1..840.114 350.1.13.10 4.2.7.2.686 [id number] [facility] 2023-05-24 15:30:00 2023-05-24 15:30:00 Outpatient BLANCO WILKINS [facility] [id number] [facility] 2023-05-24 00:00:00 2023-05-24 00:00:00 Orders Only Doctor Unassigned, Moro [facility] 1..840.114 350.1.13.10 4.2.7.2.686 [id number] [facility] 2023-05-12 00:00:00 2023-05-12 00:00:00 Refill SuzannedaynaBlanco esquivel [facility] 1.2840.114 350.1.13.10 4.2.7.2.686 [id number] [facility] 2023-05-02 00:00:00 2023-05-02 00:00:00 Refill Blanco Vázquez [facility] DA?[facility] 1.2840.114 350.1.13.10 4.2.7.2.686 [id number] [facility] 2023-04-29 00:00:00 2023-04-29 00:00:00 Refill Blanco Vázquez [facility] 1.2840.114 350.1.13.10 4.2.7.2.686 [id number] [id number] [facility] 2023-04-26 00:00:00 2023-04-26 00:00:00 Refill Khurram Disla [facility] DA?[facility] 1.2840.114 350.1.13.10 4.2.7.2.686 [id number] [facility] 2023-04-18 00:00:00 2023-04-18 00:00:00 [facility] 1.2840.114 350.1.13.10 4.2.7.2.686 [id number] [facility] 2023-03-02 00:00:00 2023-03-02 00:00:00 Refill Khurram Disla [facility] DA?[facility] 1.2840.114 350.1.13.10 4.2.7.2.686 [id number] [facility] 2023-02-01 00:00:00 2023-02-01 00:00:00 RefBlanco Vides [facility] DA?[facility] 1.2.840.114 350.1.13.10 4.2.7.2.686 [id number] [facility] 2022-12-29 00:00:00 2022-12-29 00:00:00 Blanco Armijo [facility] DA?[facility] 1..840.114 350.1.13.10 4.2.7.2.686 [id number] [facility] 2022-11-24 00:00:00 2022-11-24 00:00:00 Blanco Armijo [facility] DA?[facility] 1..840.114 350.1.13.10 4.2.7.2.686 [id number] [facility] 2022-10-27 00:00:00 2022-10-27 00:00:00 Blanco Armijo [facility] DA?[facility] 1.2.840.114 350.1.13.10 4.2.7.2.686 [id number] [facility] 2022-04-20 07:30:00 2022-04-20 07:30:00 Outpatient BLANCO WILKINS [facility] [id number] [facility] 2022-04-14 14:00:00 2022-04-14 14:30:00 Office Visit Nighat Khurram [facility] DA?[facility] 1.2.840.114 350.1.13.10 4.2.7.2.686 [id number] [facility] 2022-04-14 14:00:00 2022-04-14 14:00:00 Outpatient R KHURRAM DISLA [facility] [id number] [facility] 2022-04-14 00:00:00 2022-04-14 00:00:00 Telephone Blanco Vázquez [facility] DA?[facility] 1.2840.114 350.1.13.10 4.2.7.2.686 [id number] [facility] 2022-04-14 00:00:00 2022-04-14 00:00:00 Orders Only Doctor Unassigned, Moro [facility] 1.2840.114 350.1.13.10 4.2.7.2.686 [id number] [facility] 2022-04-13 00:00:00 2022-04-13 00:00:00 Refill Manish [facility] DA?[facility] 1.2840.114 350.1.13.10 4.2.7.2.686 [id number] [facility] 2022-04-13 00:00:00 2022-04-13 00:00:00 Refill Manish [facility] DA?[facility] 1.2840.114 350.1.13.10 4.2.7.2.686 [id number] [facility] 2022-04-12 00:00:00 2022-04-12 00:00:00 Refill Blanco Vázquez [facility] DA?[facility] 1.2840.114 350.1.13.10 4.2.7.2.686 [id number] [facility] 2022-04-09 00:00:00 2022-04-09 00:00:00 Refill Blanco Vázquez [facility] DA?[facility] 1.2840.114 350.1.13.10 4.2.7.2.686 [id number] [facility] 2022-01-26 00:00:00 2022-01-26 00:00:00 Arielle Vázquez Blanco Jackman [facility] 1..840.114 350.1.13.10 4.2.7.2.686 [id number] [facility] 2021-05-26 08:00:00 2021-05-26 08:00:00 Outpatient CHANDLER HANKINS [facility] [id number] [facility] 2021-05-12 13:00:00 2021-05-12 13:00:00 Outpatient MARYLOU ONEIL DENISE [facility] [id number] [facility] 2021-05-08 00:00:00 2021-05-08 00:00:00 Letter (Out) Marina Cottrell [facility] 1.840.114 350.1.13.10 4.2.7.2.686 [id number] [facility] 2021-05-06 00:00:00 2021-05-06 00:00:00 [address] Funez [facility] 1.840.114 350.1.13.10 4.2.7.2.686 [id number] [facility] 2021-05-05 16:58:05 2021-05-05 17:08:05 Laboratory Only Only, Ang Db Test Onelia Dubose [facility] 1..840.114 350.1.13.10 4.2.7.2.686 [id number] [facility] 2021-05-05 16:35:00 2021-05-05 16:35:00 Outpatient Zaheer [facility] [id number] [facility] 2021-04-13 08:20:00 2021-04-13 08:20:00 Outpatient DANIEL SIMEON [facility] [id number] [facility] 2021-04-01 08:20:00 2021-04-01 08:20:00 Outpatient MARYLOU ONEIL DENISE [facility] [id number] [facility] 2021-04-01 00:00:00 2021-04-01 00:00:00 Case Management Emi Ferro [facility] 1..114 350.1.13.10 4.2.7.2.686 [id number] [facility] 2021-03-24 09:28:00 2021-03-24 10:17:31 Office Visit Marylou Funez [facility] 1.114 350.1.13.10 4.2.7.2.686 [id number] [facility] 2021-03-24 09:30:00 2021-03-24 09:30:00 Outpatient MARYLOU ONEIL DENISE [facility] [id number] [facility] 2021-02-18 00:00:00 2021-02-18 00:00:00 Telephone Marylou Funez [facility] 1..114 350.1.13.10 4.2.7.2.686 [id number] [facility] 2021-02-16 00:00:00 2021-02-16 00:00:00 Telephone Marylou Funez [facility] 1.114 350.1.13.10 4.2.7.2.686 [id number] [facility] 2021-02-10 13:46:16 2021-02-10 23:59:00 Hospital Encounter Marylou Funez [facility] 1.114 350.1.13.10 4.2.7.2.686 [id number] [facility] 2021-02-10 14:00:00 2021-02-10 14:00:00 Outpatient MARYLOU ONEIL DEN[facility] [id number] [facility] 2021-02-06 00:00:00 2021-02-06 00:00:00 Telephone Marylou Funez [facility] 1.2840.114 350.1.13.10 4.2.7.2.686 [id number] [facility] 2021-01-26 09:20:00 2021-01-26 09:20:00 Outpatient FRANKIE CHANDLER [facility] [id number] [facility] 2021-01-20 08:47:22 2021-01-20 09:41:41 [facility] 1.2.840.114 350.1.13.10 4.2.7.2.686 [id number] [facility] 2021-01-20 09:00:00 2021-01-20 09:00:00 Outpatient MARYLOU ONEIL [facility] [id number] [facility] 2021-01-20 00:00:00 2021-01-20 00:00:00 Orders Only Doctor Unassigned, Moro [facility] 1.2.840.114 350.1.13.10 4.2.7.2.686 [id number] [facility] 2021-01-12 09:00:00 2021-01-12 09:00:00 Outpatient DANIEL SIMEON [facility] [id number] [facility] 2021-01-06 08:54:52 2021-01-06 09:27:00 [facility] 1.2.840.114 350.1.13.10 4.2.7.2.686 [id number] [facility] 2021-01-06 09:00:00 2021-01-06 09:00:00 Outpatient R MEÑO CAPELLAN [facility] [id number] [facility] 2021-01-01 18:01:46 2021-01-01 23:59:00 Hospital Encounter [facility] 1.2.840.114 350.1.13.10 4.2.7.2.686 [id number] [facility] 2021-01-01 18:01:46 2021-01-01 23:59:00 Outpatient R MEÑO CAPELLAN [facility] [id number] [facility] 2021-01-01 00:00:00 2021-01-01 00:00:00 [id number] 2020-12-23 07:52:36 2020-12-23 08:39:47 [facility] 1.2.840.114 350.1.13.10 4.2.7.2.686 [id number] [facility] 2020-12-23 08:00:00 2020-12-23 08:00:00 Outpatient R MEÑO CAPELLAN [facility] [id number] [facility] 2020-12-23 00:00:00 2020-12-23 00:00:00 Letter (Out) [facility] 1.2.840.114 350.1.13.10 4.2.7.2.686 [id number] [facility] 2020-12-19 10:17:00 2020-12-19 12:11:00 Emergency Zuleika Cowart [facility] 1.2.840.114 350.1.13.10 4.2.7.2.686 [id number] [facility] 2020-12-18 00:00:00 2020-12-18 00:00:00 Telephone Blanco Vázquez [facility] 1.2.840.114 350.1.13.10 4.2.7.2.686 [id number] [facility] 2020-12-17 10:45:00 2020-12-17 23:59:00 Hospital Encounter Blanco Vázquez pavithra [facility] 1.2.840.114 350.1.13.10 4.2.7.2.686 [id number] [facility] 2020-12-17 10:12:52 2020-12-17 10:27:52 Office Visit Blanco Vázquez [facility] 1.2.840.114 350.1.13.10 4.2.7.2.686 [id number] [facility] 2020-12-17 10:15:00 2020-12-17 10:15:00 Outpatient R BLANCO VÁZQUEZ [facility] [id number] [facility] 2020-10-15 14:16:52 2020-10-15 14:31:52 Office Visit Blanco Vázquez [facility] 1.2.840.114 350.1.13.10 4.2.7.2.686 [id number] [facility] 2020-10-15 14:15:00 2020-10-15 14:15:00 Outpatient R BLANCO VÁZQUEZ [facility] [id number] [facility] 2020-09-11 15:50:26 2020-09-11 16:33:14 Urgent Randa Posada [facility] .114 350.1.13.10 4.2.7.2.686 [id number] [facility] 2020-09-11 15:40:00 2020-09-11 15:40:00 Outpatient RUPA SANTAMARIA [facility] [id number] [facility] 2020-08-26 14:00:00 2020-08-26 14:00:00 Outpatient FRANKIE CHANDLER [facility] [id number] [facility] 2020-08-12 16:11:47 2020-08-12 16:26:47 Office Visit Blanco Vázquez [facility] 1.84.114 [id number] [facility] 2020-08-12 16:15:00 2020-08-12 16:15:00 Outpatient [facility] [id number] [facility] 2020-08-12 10:30:00 2020-08-12 10:30:00 Outpatient [facility] [id number] [facility] 2020-08-02 00:00:00 2020-08-02 00:00:00 Orders Only Doctor Unassigned, Mor[facility] .114 350.1.13.10 [id number] [facility] 2020-07-28 08:43:04 2020-07-28 09:30:34 Office Visit Frankie Galvan [facility] Building 1..114 350.1.13.10 [id number] [facility] 2020-07-28 08:40:00 2020-07-28 08:40:00 Outpatient FRANKIE [facility] [id number] [facility] 2020-07-15 13:54:22 2020-07-15 14:24:22 Office Visit Blanco Vázquez [facility] Office Building One 1.2.114 350.1.13.10 4.2.7.2.686 [id number] [facility] 2020-07-15 14:00:00 2020-07-15 14:00:00 Outpatient Zaheer VÁZQUEZ [facility] [id number] [facility] 2020-07-09 07:20:00 2020-07-10 16:20:00 Emergency Darlin Munoz Wei [facility] 1..114 350.1.13.10 4.2.7.2.686 [id number] [facility] 2020-07-09 07:16:00 2020-07-09 07:16:00 Emergency X [facility] ERT [id number] [facility] 2020-07-02 14:39:00 2020-07-02 16:21:00 Emergency Daisha Wheeler [facility] 1..114 350.1.13.10 4.2.7.2.686 [id number] [facility] 2020-07-02 14:13:00 2020-07-02 14:13:00 Emergency X [facility] ERT [id number] [facility] 2019-04-27 11:02:55 2019-04-27 14:01:00 Emergency Angela Kamara [facility] 1.20.114 350.1.13.10 4.2.7.2.686 [id number] 2019-04-27 11:02:55 2019-04-27 14:01:00 Emergency Angela Kamara [facility] 1.20.114 350.1.13.10 4.2.7.2.686 [id number] [facility] Notes Date/Time Note Provider Source 2023-05-12 12:28:40 OPENygnxIUK0qnUk/3Lu AtIdobEWXNBFe+Y VjJ5YecmUl8LjKYabGh2u+yH5dz000780-4 2:28:40 Images from the original note were not included.Requested Renewals omeprazole 20 mg capsule Possible duplicate: Hover to review recent actions on this medication Sig: Take 1 capsule by mouth in the morning. Disp: 90 capsule Refills: 3 Start: 05/12/2023 Class: eRX Non-formulary For: Gastroesophageal reflux disease without esophagitis Last ordered: 1 year ago (04/14/2022) by TRAN Duran [facility]: Antiulcer - Proton Pump Inhibitors Failed 05/12/2023 11:42 AM Protocol Details Valid encounter within last 12 months To be filled at: [facility] [id number] [address] Recent VisitsDate Type Provider Dept 04/14/22 Office Visit Khurram Disla FNP [facility] Showing recent visits within past 540 days with a meds authorizing provider and meeting all other requirementsFuture AppointmentsDate Type Provider Dept 05/24/23 Appointment Blanco Vázquez MD [facility] Showing future appointments within next 150 days with a meds authorizing provider and meeting all other requirements [id number] encounter OfpfJK8995-04-48X46:28:50Telephone encounter [id number]. 2.840784|[id number] for patient [id number] M Fisher [address] V[id number] 9ETBSOBOTQPZSMUXICCOVDR8803-92-53V6 2:28:501.2.840.511915.1.72.3.15|1.2 .840.401167.1.13.104.2.7.2.727879_1 [id number] Phyllis Garcia PROMOTIONS COORDINATOR [facility] 2023-05-02 10:17:09 4SKG0DNzn+HaySdCHPgk WKi5evQl29zCvrr VpHBjtIILgK3Z74Ymf2F2VwRrgvA48146-4 8-28T10:17:09 Patient is out of medications and is needing refills. He states he has a follow up with Manish in May. 90426-1Vvhxnbfhc encounter CnchKZ8383-17-09L55:18:08Telephone encounter NoteTXT1.2.840.300366.1.13.104.2.7. 2.610288|[id number] for patient rdul50948-4BlkzPIEJQUJQ[address] Qg[id number] 5ZAKWLSRYBXRCVFWDZEZYVM7299-27-55W5 0:18:081.2.840.704351.1.72.3.15|1.2 .840.572354.1.13.104.2.7.2.727879_1 [id number] [facility] 2023-04-26 10:35:45 XKguF/9VRWEfS4lB83o7 63bgS9jWwXIt2JB ZwtsXe3ACfFNZ2J3dPs3cOlX5bosM2865-1 04-26T10:35:45 Images from the original note were not included.Requested Renewals levETIRAcetam 1,000 mg tablet Possible duplicate: Hover to review recent actions on this medication Sig: Take 1 tablet by mouth in the morning and 1 tablet in the evening. Disp: 180 tablet Refills: 3 Start: 04/26/2023 Class: eRX Non-formulary For: Seizure disorder Last ordered: 1 year ago (04/14/2022) by TRAN Duran Seizure- keppra Failed 04/26/2023 10:22 AM Protocol Details Valid encounter within last 12 months Manual Review: Check for seizures or dose change in last 3 months Levetiracetam, Serum in normal range and within 360 days To be filled at: [facility] [id number] [address] Recent VisitsDate Type Provider Dept 04/14/22 Office Visit Khurram Disla FNP [facility] Showing recent visits within past 540 days with a meds authorizing provider and meeting all other requirementsFuture AppointmentsNo visits were found meeting these conditions.Showing future appointments within next 150 days with a meds authorizing provider and meeting all other requirements 77322-1Igytvdhzo encounter SdsxTG6730-29-23G95:35:54Telephone encounter NoteTXT1.2.840.776236.1.13.104.2.7. 2.533928|[id number] for patient [id number] M Fisher [address] Ky[id number] 0LLSLOPMADOYXRAVNRQGAYG9621-88-61X0 0:35:541.2.840.207325.1.72.3.15|1.2 .840.885476.1.13.104.2.7.2.727879_1 [id number] Phyllis Garcia PROMOTIONS COORDINATOR [facility]"
--- NOTE | 2023-10-01 13:47 | ER ---
Nurse's Notes [facility] Name: Eugenio Villarreal Age: 58 yrs Sex: Male : 1965 Arrival Date: 10/01/2023 Time: 11:42 Bed 14 Private MD: Diagnosis: Low back pain with radiculopathy Presentation: 10/01 11:56 Chief complaint: Patient states: RL back pain radiating to buttocks and hip that ph started , denies injury, hx of sciatica. Coronavirus screen: Vaccine status: Patient reports being unvaccinated. Ebola Screen: No symptoms or risks identified at this time. Initial Sepsis Screen: Does the patient meet any 2 criteria? No. Patient's initial sepsis screen is negative. Does the patient have a suspected source of infection? No. Patient's initial sepsis screen is negative. Risk Assessment: Do you want to hurt yourself or someone else? Patient reports no desire to harm self or others. Onset of symptoms was October 01, 2023. 11:56 Method Of Arrival: Ambulatory 11:56 Acuity: KASHIF 3 11:57 Ebola Screen: No symptoms or risks identified at this time. Risk Assessment: Do you mb9 want to hurt yourself or someone else? Patient reports no desire to harm self or others. Historical: - Allergies: 11:51 Clarithromycin; mb9 - Home Meds: 11:51 Prilosec Oral [Active]; Keppra Oral [Active]; amlodipine oral [Active]; mb9 - PMHx: 11:51 Hypertension; Seizure; mb9 - Immunization history:: Adult Immunizations up to date. - Social history:: Smoking status: Patient denies any tobacco usage or history of. - Family history:: not pertinent. Screenin:52 [facility] ED Fall Risk Assessment (Adult) History of falling in the last 3 months, mb9 including since admission No falls in past 3 months (0 pts) Confusion or Disorientation No (0 pts) Intoxicated or Sedated No (0 pts) Impaired Gait No (0 pts) Mobility Assist Device Used No (0 pt) Altered Elimination No (0 pt) Score/Fall Risk Level 0 - 2 = Low Risk Oriented to surroundings, Maintained a safe environment, Educated pt \T\ family on fall prevention, incl call for assistance when getting out of bed. Abuse screen: Denies threats or abuse. Nutritional screening: No deficits noted. Tuberculosis screening: No symptoms or risk factors identified. Assessment: 12:06 General: Appears in no apparent distress. Behavior is calm, cooperative. Pain: mb9 Complains of pain in back Pain radiates to buttocks Pain currently is 7 out of 10 on a pain scale. Quality of pain is described as throbbing. Neuro: [place] Agitation-Sedation Scale (RASS): 0 - Alert and Calm Level of Consciousness is awake, alert, obeys commands, Oriented to person, place, time, situation, Appropriate for age. Cardiovascular: Patient's skin is warm and dry. Respiratory: Airway is patent Respiratory effort is even, unlabored, Respiratory pattern is regular, symmetrical. GI: Abdomen is round. : No signs and/or symptoms were reported regarding the genitourinary system. EENT: No signs and/or symptoms were reported regarding the EENT system. Derm: Skin is pink, warm \T\ dry. Musculoskeletal: Range of motion: intact in all extremities. 13:24 Reassessment: No changes from previously documented assessment. Patient and/or family mb9 updated on plan of care and expected duration. Pain level reassessed. Patient is alert, oriented x 3, equal unlabored respirations, skin warm/dry/pink. Vital Signs: 11:56 BP 171 / 97; Pulse 57; Resp 18; Temp 97.8; Pulse Ox 98% on R/A; Weight 77.11 kg; Height ph 5 ft. 7 in. ; 13:24 BP 148 / 85; Pulse 74; Resp 18; Pulse Ox 100% on R/A; mb9 13:47 BP 152 / 97; Pulse 64; Resp 16; Pulse Ox 97% ; mb9 11:56 Body Mass Index 26.63 (77.11 kg, 170.18 cm) ph ED Course: 11:47 Patient arrived in ED. mr 11:51 Gricelda Mann RN is Primary Nurse. mb9 11:51 Arm band placed on. mb9 11:52 Nasim Olguin MD is Attending Physician. rt 11:52 Placed in gown. Bed in low position. Call light in reach. Side rails up X 1. Client mb9 placed on continuous cardiac and pulse oximetry monitoring. NIBP monitoring applied. 11:58 Triage completed. ph 12:08 No provider procedures requiring assistance completed. mb9 13:47 Patient did not have IV access during this emergency room visit. mb9 Administered Medications: 12:19 Drug: Dexamethasone IM 8 mg IM once Route: IM; Site: right gluteus; mb9 12:42 Follow up: Response: No adverse reaction mb9 12:19 Drug: Ketorolac IM 15 mg IM once Route: IM; Site: left gluteus; mb9 12:42 Follow up: Response: No adverse reaction mb9 12:19 Drug: Famotidine PO 20 mg PO once Route: PO; mb9 12:43 Follow up: Response: No adverse reaction mb9 12:19 Drug: Cyclobenzaprine PO 10 mg PO once Route: PO; mb9 12:43 Follow up: Response: No adverse reaction mb9 13:07 Drug: [place] PO 10 mg-325 mg 1 tabs PO once Route: PO; mb9 13:53 Follow up: Response: No adverse reaction mb9 Medication: 11:51 VIS not applicable for this client. mb9 Outcome: 13:46 Discharge ordered by . rt 13:53 Discharged to home ambulatory, mb9 13:53 Condition: stable 13:53 Discharge instructions given to patient, Instructed on discharge instructions, follow up and referral plans. Demonstrated understanding of instructions, follow-up care, medications, Prescriptions given X 2, 13:53 Patient left the ED. mb9 Signatures: Gricelda Dean Reg Reg mr Hall, Patricia RN PABLO ph Johnathan, Gricelda Serrato RN RN mb9 Nasim Olguin MD MD rt
--- NOTE | 2023-10-01 13:47 | EDPHYS ---
Physician Documentation [facility] Name: Eugenio Villarreal Age: 58 yrs Sex: Male : 1965 Arrival Date: 10/01/2023 Time: 11:42 Bed 14 Private MD: ED Physician Nasim Olguin HPI: 10/01 15:06 This 58 yrs old Male presents to ER via Ambulatory with complaints of Back Pain. rt 15:06 Patient with prior history of sciatica presents to the ED with a right lower back pain rt that radiates posteriorly down his leg. Denies discrete injury. Denies numbness, tingling, bowel, or bladder incontinence, denies other acute complaints at this time, pain is aching nature, no other aggravating alleviating factors.. Historical: - Allergies: 11:51 Clarithromycin; mb9 - Home Meds: 11:51 Prilosec Oral [Active]; Keppra Oral [Active]; amlodipine oral [Active]; mb9 - PMHx: 11:51 Hypertension; Seizure; mb9 - Immunization history:: Adult Immunizations up to date. - Social history:: Smoking status: Patient denies any tobacco usage or history of. - Family history:: not pertinent. ROS: 15:06 Constitutional: Negative for fever, chills, and weight loss, Cardiovascular: Negative rt for chest pain, palpitations, and edema, Respiratory: Negative for shortness of breath, cough, wheezing, and pleuritic chest pain, Abdomen/GI: Negative for abdominal pain, nausea, vomiting, diarrhea, and constipation, Skin: Negative for injury, rash, and discoloration, Neuro: Negative for headache, weakness, numbness, tingling, and seizure, 15:06 Back: Positive for pain at rest, pain with movement, Exam: 15:06 Constitutional: This is a well developed, well nourished patient who is awake, alert, rt and in no acute distress. Head/Face: Normocephalic, atraumatic. Neck: Trachea midline, no thyromegaly or masses palpated, and no cervical lymphadenopathy. Supple, full range of motion without nuchal rigidity, or vertebral point tenderness. No Meningismus. Chest/axilla: Normal chest wall appearance and motion. Nontender with no deformity. No lesions are appreciated. Cardiovascular: Regular rate and rhythm with a normal S1 and S2. No gallops, murmurs, or rubs. Normal PMI, no JVD. No pulse deficits. Respiratory: Lungs have equal breath sounds bilaterally, clear to auscultation and percussion. No rales, rhonchi or wheezes noted. No increased work of breathing, no retractions or nasal flaring. Abdomen/GI: Soft, non-tender, with normal bowel sounds. No distension or tympany. No guarding or rebound. No evidence of tenderness throughout. Skin: Warm, dry with normal turgor. Normal color with no rashes, no lesions, and no evidence of cellulitis. Neuro: Awake and alert, GCS 15, oriented to person, place, time, and situation. Cranial nerves II-XII grossly intact. Motor strength 5/5 in all extremities. Sensory grossly intact. Cerebellar exam normal. Normal gait. Psych: Awake, alert, with orientation to person, place and time. Behavior, mood, and affect are within normal limits. 15:06 Back: Tenderness to the right SI notch, no other focal areas of tenderness, no step-offs, Vital Signs: 11:56 BP 171 / 97; Pulse 57; Resp 18; Temp 97.8; Pulse Ox 98% on R/A; Weight 77.11 kg; Height ph 5 ft. 7 in. ; 13:24 BP 148 / 85; Pulse 74; Resp 18; Pulse Ox 100% on R/A; mb9 13:47 BP 152 / 97; Pulse 64; Resp 16; Pulse Ox 97% ; mb9 11:56 Body Mass Index 26.63 (77.11 kg, 170.18 cm) ph MDM: 11:59 Patient medically screened. rt 15:06 Differential diagnosis: Low back pain, sciatica, radiculopathy. Data reviewed: vital rt signs, nurses notes. I considered the following discharge prescriptions or medication management in the emergency department Medications were administered in the Emergency Department. See MAR. Test considered but Not performed: Other Details No clinical signs or symptoms to suggest cauda equina syndrome, spinal epidural abscess, also the patient denies trauma. CT, MRI, labs are not likely to be of benefit to the patient. Care significantly affected by the following chronic conditions: Hypertension. Counseling: I had a detailed discussion with the patient and/or guardian regarding the historical points, exam findings, and any diagnostic results supporting the discharge/admit diagnosis, the need for outpatient follow up, to return to the emergency department if symptoms worsen or persist or if there are any questions or concerns that arise at home. Administered Medications: 12:19 Drug: Dexamethasone IM 8 mg IM once Route: IM; Site: right gluteus; mb9 12:42 Follow up: Response: No adverse reaction mb9 12:19 Drug: Ketorolac IM 15 mg IM once Route: IM; Site: left gluteus; mb9 12:42 Follow up: Response: No adverse reaction mb9 12:19 Drug: Famotidine PO 20 mg PO once Route: PO; mb9 12:43 Follow up: Response: No adverse reaction mb9 12:19 Drug: Cyclobenzaprine PO 10 mg PO once Route: PO; mb9 12:43 Follow up: Response: No adverse reaction mb9 13:07 Drug: [place] PO 10 mg-325 mg 1 tabs PO once Route: PO; mb9 13:53 Follow up: Response: No adverse reaction mb9 Disposition Summary: 10/01/23 13:46 Discharge Ordered Notes: Location: Home rt Problem: new rt Symptoms: have improved rt Condition: Stable rt Diagnosis - Low back pain with radiculopathy rt Followup: rt - With: Private Physician - When: 2 - 3 days - Reason: Discharge Instructions: - Discharge Summary Sheet mb9 - Acute Back Pain, Adult rt Forms: - Work release form mb9 - Medication Reconciliation Form rt - Thank You Letter rt - Antibiotic Education rt - Prescription Opioid Use rt - Patient Portal Instructions rt - Leadership Thank You Letter rt Prescriptions: - gabapentin 100 mg Oral capsule - take 1 capsule ORAL route every 8 hours; 30 capsule; Refills: 0, Product rt Selection Permitted - Cyclobenzaprine 5 mg Oral Tablet - take 1 tablet ORAL route 3 times per day As needed; 15 tablet; Refills: 0, rt Product Selection Permitted Signatures: Liliane Smart RN RN Gricelda Connors RN RN mb9 Nasim Olguin MD MD rt
[2023-10-01 14:29] VITALS: BP 152/97; TEMP 97.8; O2SAT 97
== END ==
LOC: ER 11:42
DX: M54.50 Low back pain, unspecified (principal); M54.10 Radiculopathy, site unspecified; I10 Essential (primary) hypertension; M54.30 Sciatica, unspecified side; Z88.8 Allergy status to other drugs, medicaments and biological substances
CPT/HCPCS: J1100

== ENCOUNTER → 2023-10-02 | Emergency (ER) | payer SELFPAY ==
[~2023-10-02] MED LIST changes: -CYCLOBENZAPRINE 10 MG TAB ONE; +DIAZEPAM 10 MG/2 ML INJ SYRINGE ONE; -FAMOTIDINE 20 MG TAB ONE; -HYDROCODONE/APAP 10/325 TAB ONE; +HYDROCODONE/APAP 5/325 MG TAB ONE; +MORPHINE 4 MG/ML SYR ONE; +NA CHLORIDE 0.9% 1,000 ML ONE; +ONDANSETRON 4 MG/2 ML VIAL ONE; -dexAMETHasone 10 MG/ML VIAL ONE
--- OUTSIDE RECORDS SUMMARY | 2023-10-02 10:54 | XMS REPORT | Continuity of Care Document ---
Author Name Unknown Address [address] [facility] [address] [place] [address] [facility] thconnect Address [address] [facility] [place] [address] Care Team Providers Care Electrical Equipment Technician Name Role Phone Blanco Vázquez MD Primary Care Physician Victoria Avila MD Attending Clinician Blanco Vázquez MD Attending Clinician + [phone] BLANCO VÁZQUEZ Attending Clinician UnaFRANKIE Peralta Attending Clinician Unavail able FRANKIE GALVAN Attending Clinician Unavail able Doctor Unassigned, [place] Attending Clinician U Khurram York Attending Clinician [phone] KHURRAM DISLA Attending Clinician Unavailable CHANDLER BROWER Attending Clinician UnavailMARYLOU Cunningham Attending Clinician Unavail able MARYLOU FUNEZ Attending Clinician Unavail francisco Cottrell RN, Marina Montoya Attending Clinician Unavailab Sanjeev NO, Marylou Webster Attending Clinician Only, Ang Db Test Attending Clinician UnavailOnelia Dozier Attending Clinician [phone] DANIEL ASHER Attending Clinician UnavailEmi Hampton PT Attending Clinician UnavailMeño Membreno Attending Clinician [phone] MEÑO CAPELLAN Attending Clinician Unavailable Cowart PAC, Zuleika S Attending Clinician [phone] Randa Erazo Attending Clinician [phone] Rupa Hung Attending Clinician [phone] RUPA GRAMAJO Attending Clinician Unavailable Frankie Galvan MD Attending Clinician [phone]- [phone] Darlin Munoz DO Attending Clinician [phone] Herson Douglas MD Attending Clinician [phone] Liam CORTES, Daisha Sanderson Attending Clinician [phone] Anh ANTHONY, Angela Funk Attending Clinician [phone] MEÑO CAPELLAN Admitting Clinician Unavailable Herson Douglas MD Admitting Clinician [phone] Payers Payer Name Policy Type Policy Number Effective Date Expirati on Date Source [facility] [id number] 2017 00:00:00 Problems Condition Name Condition Details Condition Category Status Onset Date Resolution Date Last Treatment Date Treating Clinician Comments Source Seizure disorder Seizure disorder Disease Active 04-14 00:00: 00 [facility] Gastroesop hageal reflux disease without esophagiti s Gastroesop hageal reflux disease without esophagiti s Disease Active 04-14 00:00: 00 [facility] Essential hypertensi on Essential hypertensi on Disease Active 2019-09 00:00: 00 [facility] DARREN (acute kidney injury) DARREN (acute kidney injury) Disease Active 2019-09 00:00: 00 [facility] Elevated troponin Elevated troponin Disease Active 2019-09 00:00: 00 [facility] Elevated troponin Elevated troponin Disease Active 2019-09 00:00: 00 [facility] Allergies, Adverse Reactions, Alerts Allergy Name Allergy Type Status Severity Reaction(s) Onset Date Inactive Date Treating Clinician Comments Source NO KNOWN ALLERGIE S Drug Class Active [facility] Social History Social Habit Start Date Stop Date Quantity Comments Source Gender identity [facility] 2023-07-06 00:00:00 2023-07-06 00:00:00 Current drinker of alcohol (finding) [facility] History of Social function 2023-05-24 00:00:00 2023-05-24 00:00:00 [facility] Exposure to SARS-CoV-2 (event) 2022-04-04 00:00:00 2022-04-14 13:54:00 Not sure [facility] Tobacco use and exposure 2022-04-14 00:00:00 2022-04-14 00:00:00 Smokeless tobacco non-user [facility] History SDOH Food Scarcity 2020-07-09 00:00:00 2020-07-09 00:00:00 1 [facility] History SDOH Transport Med 2020-07-09 00:00:00 2020-07-09 00:00:00 2 [facility] History SDOH Transport Non-Med 2020-07-09 00:00:00 2020-07-09 00:00:00 2 [facility] Education - What is the highest level of school you have completed or the highest degree you have received? 2020-07-09 00:00:00 2020-07-09 00:00:00 High school graduate [facility] History SDOH Financial 2020-07-09 00:00:00 2020-07-09 00:00:00 3 [facility] History SDOH Food Worry 2020-07-09 00:00:00 2020-07-09 00:00:00 1 [facility] Sex Assigned At 1965 00:00:00 1965 00:00:00 [facility] Smoking Status Start Date Stop Date Source Never smoked tobacco [facility] Medications Ordered Medication Name Filled Medication Name Start Date Stop Date Current Medication? Ordering Clinician Indication Dosage Frequency Signature (SIG) Comments Components Source OMEPRAZOLE 20 mg capsule 2022-09 00:00: 00 Yes [id number] TAKE ONE CAPSULE BY MOUTH EVERY MORNING [facility] azithromyci n 500 mg tablet 2022-09 00:00: 00 Yes [id number] 500mg Take 1 tablet by mouth in the morning. [facility] azithromyci n 500 mg tablet 2022-09 00:00: 00 Yes [id number] 500mg Take 1 tablet by mouth in the morning. [facility] azithromyci n 500 mg tablet 2022-09 00:00: 00 Yes [id number] 500mg Take 1 tablet by mouth in the morning. [facility] azithromyci n 500 mg tablet 2022-09 00:00: 00 Yes [id number] 500mg Take 1 tablet by mouth in the morning. [facility] methocarbam oL 500 mg tablet 05-24 00:00: 00 Yes [id number] 500mg Take 1 tablet by mouth 4 (four) times daily as needed for Pain (scale 4-6). [facility] amLODIPine- benazepriL 5-20 mg per capsule 05-24 00:00: 00 Yes [id number] TAKE ONE CAPSULE BY MOUTH EVERY MORNING [facility] methocarbam oL 500 mg tablet 05-24 00:00: 00 Yes [id number] 500mg Take 1 tablet by mouth 4 (four) times daily as needed for Pain (scale 4-6). [facility] amLODIPine- benazepriL 5-20 mg per capsule 05-24 00:00: 00 Yes [id number] TAKE ONE CAPSULE BY MOUTH EVERY MORNING [facility] methocarbam oL 500 mg tablet 05-24 00:00: 00 Yes [id number] 500mg Take 1 tablet by mouth 4 (four) times daily as needed for Pain (scale 4-6). [facility] amLODIPine- benazepriL 5-20 mg per capsule 05-24 00:00: 00 Yes [id number] TAKE ONE CAPSULE BY MOUTH EVERY MORNING [facility] methocarbam oL 500 mg tablet 05-24 00:00: 00 Yes [id number] 500mg Take 1 tablet by mouth 4 (four) times daily as needed for Pain (scale 4-6). [facility] amLODIPine- benazepriL 5-20 mg per capsule 05-24 00:00: 00 Yes [id number] TAKE ONE CAPSULE BY MOUTH EVERY MORNING [facility] methocarbam oL 500 mg tablet 2022-0 05-24 00:00: 00 Yes [id number] 500mg Take 1 tablet by mouth 4 (four) times daily as needed for Pain (scale 4-6). [facility] amLODIPine- benazepriL 5-20 mg per capsule 2022-0 05-24 00:00: 00 Yes [id number] TAKE ONE CAPSULE BY MOUTH EVERY MORNING [facility] methocarbam oL 500 mg tablet 2022-0 05-24 00:00: 00 Yes [id number] 500mg Take 1 tablet by mouth 4 (four) times daily as needed for Pain (scale 4-6). [facility] amLODIPine- benazepriL 5-20 mg per capsule 2022-0 05-24 00:00: 00 Yes [id number] TAKE ONE CAPSULE BY MOUTH EVERY MORNING [facility] omeprazole 20 mg capsule 2022-0 05-12 00:00: 00 Yes [id number] 20mg Take 1 capsule by mouth in the morning. [facility] omeprazole 20 mg capsule 3-0 05-12 00:00: 00 Yes [id number] 20mg Take 1 capsule by mouth in the morning. [facility] omeprazole 20 mg capsule 2022-0 05-12 00:00: 00 Yes [id number] 20mg Take 1 capsule by mouth in the morning. [facility] omeprazole 20 mg capsule 3-0 05-12 00:00: 00 Yes [id number] 20mg Take 1 capsule by mouth in the morning. [facility] omeprazole 20 mg capsule 3-0 05-12 00:00: 00 Yes [id number] 20mg Take 1 capsule by mouth in the morning. [facility] omeprazole 20 mg capsule 3-0 05-12 00:00: 00 Yes [id number] 20mg Take 1 capsule by mouth in the morning. [facility] omeprazole 20 mg capsule 3-0 05-12 00:00: 00 Yes [id number] 20mg Take 1 capsule by mouth in the morning. [facility] omeprazole 20 mg capsule 0 9-07 00:00: 00 12 00:00 :00 No [id number] 20mg Take 1 capsule by mouth in the morning. [facility] amLODIPine- benazepriL 5-20 mg per capsule 0 05-02 00:00: 00 Yes [id number] TAKE ONE CAPSULE BY MOUTH EVERY MORNING [facility] amLODIPine- benazepriL 5-20 mg per capsule 0 05-02 00:00: 00 Yes [id number] TAKE ONE CAPSULE BY MOUTH EVERY MORNING [facility] amLODIPine- benazepriL 5-20 mg per capsule 0 05-02 00:00: 00 Yes [id number] TAKE ONE CAPSULE BY MOUTH EVERY MORNING [facility] amLODIPine- benazepriL 5-20 mg per capsule 05-02 00:00: 00 05-24 00:00 :00 No [id number] TAKE ONE CAPSULE BY MOUTH EVERY MORNING [facility] amLODIPine- benazepriL 5-20 mg per capsule 05-02 00:00: 00 05-24 00:00 :00 No [id number] TAKE ONE CAPSULE BY MOUTH EVERY MORNING [facility] levETIRAcet am 1,000 mg tablet 04-26 00:00: 00 Yes [id number] 1000mg Take 1 tablet by mouth in the morning and 1 tablet in the evening. [facility] levETIRAcet am 1,000 mg tablet 04-26 00:00: 00 Yes [id number] 1000mg Take 1 tablet by mouth in the morning and 1 tablet in the evening. [facility] levETIRAcet am 1,000 mg tablet 04-26 00:00: 00 Yes [id number] 1000mg Take 1 tablet by mouth in the morning and 1 tablet in the evening. [facility] levETIRAcet am 1,000 mg tablet 04-26 00:00: 00 Yes [id number] 1000mg Take 1 tablet by mouth in the morning and 1 tablet in the evening. [facility] levETIRAcet am 1,000 mg tablet 2022-0 8 00:00: 00 Yes [id number] 1000mg Take 1 tablet by mouth in the morning and 1 tablet in the evening. [facility] levETIRAcet am 1,000 mg tablet 2022-0 04-26 00:00: 00 Yes [id number] 1000mg Take 1 tablet by mouth in the morning and 1 tablet in the evening. [facility] levETIRAcet am 1,000 mg tablet 2022-0 8 00:00: 00 Yes [id number] 1000mg Take 1 tablet by mouth in the morning and 1 tablet in the evening. [facility] levETIRAcet am 1,000 mg tablet 2022-0 04-26 00:00: 00 Yes [id number] 1000mg Take 1 tablet by mouth in the morning and 1 tablet in the evening. [facility] levETIRAcet am 1,000 mg tablet 2022-0 04-26 00:00: 00 Yes [id number] 1000mg Take 1 tablet by mouth in the morning and 1 tablet in the evening. [facility] levETIRAcet am 1,000 mg tablet 2022-0 04-26 00:00: 00 Yes [id number] 1000mg Take 1 tablet by mouth in the morning and 1 tablet in the evening. [facility] levETIRAcet am 1,000 mg tablet 2022-0 04-26 00:00: 00 Yes [id number] 1000mg Take 1 tablet by mouth in the morning and 1 tablet in the evening. [facility] AMLODIPINE- BENAZEPRIL 5-20 mg per capsule 2022-0 03-02 00:00: 00 Yes [id number] TAKE ONE CAPSULE BY MOUTH EVERY MORNING [facility] AMLODIPINE- BENAZEPRIL 5-20 mg per capsule 2022-0 6 00:00: 00 Yes [id number] TAKE ONE CAPSULE BY MOUTH EVERY MORNING [facility] AMLODIPINE- BENAZEPRIL 5-20 mg per capsule 2022-0 628 00:00: 00 Yes [id number] TAKE ONE CAPSULE BY MOUTH EVERY MORNING [facility] AMLODIPINE- BENAZEPRIL 5-20 mg per capsule 2022-0 6-28 00:00: 00 05-02 00:00 :00 No [id number] TAKE ONE CAPSULE BY MOUTH EVERY MORNING [facility] AMLODIPINE- BENAZEPRIL 5-20 mg per capsule 2022-0 6-28 00:00: 00 05-02 00:00 :00 No [id number] TAKE ONE CAPSULE BY MOUTH EVERY MORNING [facility] amLODIPine- benazepriL 5-20 mg per capsule 2022-0 5-30 00:00: 00 Yes [id number] TAKE ONE CAPSULE BY MOUTH EVERY MORNING [facility] amLODIPine- benazepriL 5-20 mg per capsule 0 530 00:00: 00 03-02 00:00 :00 No [id number] TAKE ONE CAPSULE BY MOUTH EVERY MORNING [facility] AMLODIPINE- BENAZEPRIL 5-20 mg per capsule 2022-0 4- 00:00: 00 Yes [id number] TAKE ONE CAPSULE BY MOUTH EVERY MORNING [facility] AMLODIPINE- BENAZEPRIL 5-20 mg per capsule 2022-0 4-26 00:00: 00 02-01 00:00 :00 No [id number] TAKE ONE CAPSULE [facility] MOUTH [facility]20 mg per capsule 2022-0 3-23 00:00: 00 Yes [id number] TAKE ONE CAPSULE BY MOUTH EVERY MORNING [facility] AMLODIPINE- BENAZEPRIL 5-20 mg per capsule 2022-0 3-23 00:00: 00 12-29 00:00 :00 No [id number] TAKE ONE CAPSULE BY MOUTH EVERY MORNING [facility] amLODIPine- benazepriL 5-20 mg per capsule 2022-0 2-22 00:00: 00 Yes [id number] 1{capsu le} Take 1 capsule by mouth in the morning. [facility] amLODIPine- benazepriL 5-20 mg per capsule 2022-0 2-22 00:00: 00 11-25 00:00 :00 No [id number] 1{capsu le} Take 1 capsule by mouth in the morning. [facility] levETIRAcet am 1,000 mg tablet 2-0 8-10 00:00: 00 Yes [id number] 1000mg Take 1 tablet by mouth in the morning and 1 tablet in the evening. [facility] omeprazole 20 mg capsule 2-0 8-10 00:00: 00 Yes [id number] 20mg Take 1 capsule by mouth in the morning. [facility] levETIRAcet am 1,000 mg tablet 2-0 8-10 00:00: 00 Yes [id number] 1000mg Take 1 tablet by mouth in the morning and 1 tablet in the evening. [facility] omeprazole 20 mg capsule 2-0 8-10 00:00: 00 Yes [id number] 20mg Take 1 capsule by mouth in the morning. [facility] levETIRAcet am 1,000 mg tablet 2-0 8-10 00:00: 00 Yes [id number] 1000mg Take 1 tablet by mouth in the morning and 1 tablet in the evening. [facility] omeprazole 20 mg capsule 2-0 8-10 00:00: 00 Yes [id number] 20mg Take 1 capsule by mouth in the morning. [facility] omeprazole 20 mg capsule 2-0 8-10 00:00: 00 Yes [id number] 20mg Take 1 capsule by mouth in the morning. [facility] omeprazole 20 mg capsule 2022-0 8-10 00:00: 00 Yes [id number] 20mg Take 1 capsule by mouth in the morning. [facility] omeprazole 20 mg capsule 2022-0 8-10 00:00: 00 Yes [id number] 20mg Take 1 capsule by mouth in the morning. [facility] levETIRAcet am 1,000 mg tablet 2-0 8-10 00:00: 00 Yes [id number] 1000mg Take 1 tablet by mouth in the morning and 1 tablet in the evening. [facility] omeprazole 20 mg capsule 2022-0 8-10 00:00: 00 Yes [id number] 20mg Take 1 capsule by mouth in the morning. [facility] amLODIPine- benazepriL 5-20 mg per capsule 2021-0 8-10 00:00: 00 Yes [id number] 1{capsu le} Take 1 capsule by mouth in the morning. [facility] levETIRAcet am 1,000 mg tablet 2021-0 8-10 00:00: 00 Yes [id number] 1000mg Take 1 tablet by mouth in the morning and 1 tablet in the evening. [facility] omeprazole 20 mg capsule 2021-0 8-10 00:00: 00 Yes [id number] 20mg Take 1 capsule by mouth in the morning. [facility] levETIRAcet am 1,000 mg tablet 2021-0 8-10 00:00: 00 Yes [id number] 1000mg Take 1 tablet by mouth in the morning and 1 tablet in the evening. [facility] omeprazole 20 mg capsule 2021-0 8-10 00:00: 00 Yes [id number] 20mg Take 1 capsule by mouth in the morning. [facility] omeprazole 20 mg capsule 2021-0 8-10 00:00: 00 05-12 00:00 :00 No [id number] 20mg Take 1 capsule by mouth in the morning. [facility] omeprazole 20 mg capsule 2021-0 8-10 00:00: 00 05-12 00:00 :00 No [id number] 20mg Take 1 capsule by mouth in the morning. [facility] levETIRAcet am 1,000 mg tablet 2021-0 8-10 00:00: 00 04-26 00:00 :00 No [id number] 1000mg Take 1 tablet by mouth in the morning and 1 tablet in the evening. [facility] amLODIPine- benazepriL 5-20 mg per capsule 2021-0 8-10 00:00: 00 10-27 00:00 :00 No [id number] 1{capsu le} Take 1 capsule by mouth in the morning. [facility] AMLODIPINE- BENAZEPRIL 5-20 mg per capsule 2021-0 5-24 00:00: 00 04-14 00:00 :00 No [id number] TAKE ONE CAPSULE BY MOUTH DAILY [facility] meloxicam 15 mg tablet 0 03-24 00:00: 00 Yes [id number] 15mg Take 1 tablet by mouth daily[facility] 03-24 00:00: 00 Yes [id number] 15mg Take 1 tablet by mouth daily. [facility] meloxicam 15 mg tablet 0 03-24 00:00: 00 Yes [id number] 15mg Take 1 tablet by mouth daily. [facility] meloxicam 15 mg tablet 0 03-24 00:00: 00 Yes [id number] 15mg Take 1 tablet by mouth daily. [facility] meloxicam 15 mg tablet 0 03-24 00:00: 00 Yes [id number] 15mg Take 1 tablet by mouth daily. [facility] meloxicam 15 mg tablet 0 03-24 00:00: 00 Yes [id number] 15mg Take 1 tablet by mouth daily. [facility] meloxicam 15 mg tablet 0 03-24 00:00: 00 Yes [id number] 15mg Take 1 tablet by mouth daily. [facility] meloxicam 15 mg tablet 03-24 00:00: 00 Yes [id number] 15mg Take 1 tablet by mouth daily. [facility] meloxicam 15 mg tablet 0 03-24 00:00: 00 Yes [id number] 15mg Take 1 tablet by mouth daily. [facility] meloxicam 15 mg tablet 0 03-24 00:00: 00 Yes [id number] 15mg Take 1 tablet by mouth daily. [facility] meloxicam 15 mg tablet 0 03-24 00:00: 00 Yes [id number] 15mg Take 1 tablet by mouth daily. [facility] meloxicam 15 mg tablet 0 03-24 00:00: 00 05-24 00:00 :00 No [id number] 15mg Take 1 tablet by mouth daily. [facility] meloxicam 15 mg tablet 03-24 00:00: 00 05-24 00:00 :00 No [id number] 15mg Take 1 tablet by mouth daily. [facility] meloxicam 15 mg tablet 03-24 00:00: 00 05-24 00:00 :00 No [id number] 15mg Take 1 tablet by mouth daily. [facility] methocarbam oL 500 mg tablet 01-06 00:00: 00 Yes [id number] 500mg Take 1 tablet by mouth 4 (four) times daily as needed for Pain (scale 4-6). [facility] methocarbam oL 500 mg tablet 01-06 00:00: 00 Yes [id number] 500mg Take 1 tablet by mouth 4 (four) times daily as needed for Pain (scale 4-6). [facility] methocarbam oL 500 mg tablet 01-06 00:00: 00 Yes [id number] 500mg Take 1 tablet by mouth 4 (four) times daily as needed for Pain (scale 4-6). [facility] methocarbam oL 500 mg tablet 01-06 00:00: 00 Yes [id number] 500mg Take 1 tablet by mouth 4 (four) times daily as needed for Pain (scale 4-6). [facility] methocarbam oL 500 mg tablet 01-06 00:00: 00 Yes [id number] 500mg Take 1 tablet by mouth 4 (four) times daily as needed for Pain (scale 4-6). [facility] methocarbam oL 500 mg tablet 01-06 00:00: 00 Yes [id number] 500mg Take 1 tablet by mouth 4 (four) times daily as needed for Pain (scale 4-6). [facility] methocarbam oL 500 mg tablet 01-06 00:00: 00 Yes [id number] 500mg Take 1 tablet by mouth 4 (four) times daily as needed for Pain (scale 4-6). [facility] methocarbam oL 500 mg tablet 0 01-06 00:00: 00 Yes [id number] 500mg Take 1 tablet by mouth 4 (four) times daily as needed for Pain (scale 4-6). [facility] methocarbam oL 500 mg tablet 01-06 00:00: 00 Yes [id number] 500mg Take 1 tablet by mouth 4 (four) times daily as needed for Pain (scale 4-6). [facility] methocarbam oL 500 mg tablet 01-06 00:00: 00 Yes [id number] 500mg Take 1 tablet by mouth 4 (four) times daily as needed for Pain (scale 4-6). [facility] methocarbam oL 500 mg tablet 01-06 00:00: 00 Yes [id number] 500mg Take 1 tablet by mouth 4 (four) times daily as needed for Pain (scale 4-6). [facility] methocarbam oL 500 mg tablet 01-06 00:00: 00 05-24 00:00 :00 No [id number] 500mg Take 1 tablet by mouth 4 (four) times daily as needed for Pain (scale 4-6). [facility] methocarbam oL 500 mg tablet 01-06 00:00: 00 05-24 00:00 :00 No [id number] 500mg Take 1 tablet by mouth 4 (four) times daily as needed for Pain (scale 4-6). [facility] methocarbam oL 500 mg tablet 01-06 00:00: 00 05-24 00:00 :00 No [id number] 500mg Take 1 tablet by mouth 4 (four) times daily as needed for Pain (scale 4-6). [facility] lidocaine 5 % (700 mg/patch) patch 12-19 00:00: 00 Yes [id number] Apply 1-2 patches to the area and leave in place for up to 12 hours in a day. Do not reapply patches until the next day. [facility] meloxicam 15 mg TbDL 12-19 00:00: 00 Yes [id number] 1{tbl} Take 1 tablet by mouth daily. [facility] lidocaine 5 % (700 mg/patch) patch 16 00:00: 00 Yes [id number] Apply 1-2 patches to the area and leave in place for up to 12 hours in a day. Do not reapply patches until the next day. [facility] meloxicam 15 mg TbDL 16 00:00: 00 Yes [id number] 1{tbl} Take 1 tablet by mouth daily. [facility] it[facility] lidocaine 5 % (700 mg/patch) patch 16 00:00: 00 Yes [id number] Apply 1-2 patches to the area and leave in place for up to 12 hours in a day. Do not reapply patches until the next day. [facility] meloxicam 15 mg TbDL 12-19 00:00: 00 Yes [id number] 1{tbl} Take 1 tablet by mouth daily. [facility] (700 mg/patch) patch 12-19 00:00: 00 Yes [id number] Apply 1-2 patches to the area and leave in place for up to 12 hours in a day. Do not reapply patches until the next day. [facility] meloxicam 15 mg TbDL 12-19 00:00: 00 Yes [id number] 1{tbl} Take 1 tablet by mouth daily. [facility] % (700 mg/patch) patch 12-19 00:00: 00 Yes [id number] Apply 1-2 patches to the area and leave in place for up to 12 hours in a day. Do not reapply patches until the next day. [facility] meloxicam 15 mg TbDL 16 00:00: 00 Yes [id number] 1{tbl} Take 1 tablet by mouth daily. [facility] lidocaine 5 % (700 mg/patch) patch 16 00:00: 00 Yes [id number] Apply 1-2 patches to the area and leave in place for up to 12 hours in a day. Do not reapply patches until the next day. [facility] meloxicam 15 mg TbDL 16 00:00: 00 Yes [id number] 1{tbl} Take 1 tablet by mouth daily. [facility] lidocaine 5 % (700 mg/patch) patch 12-19 00:00: 00 Yes [id number] Apply 1-2 patches to the area and leave in place for up to 12 hours in a day. Do not reapply patches until the next day. [facility] meloxicam 15 mg TbDL 12-19 00:00: 00 Yes [id number] 1{tbl} Take 1 tablet by mouth daily. [facility] (700 mg/patch) patch 12-19 00:00: 00 Yes [id number] Apply 1-2 patches to the area and leave in place for up to 12 hours in a day. Do not reapply patches until the next day. [facility] meloxicam 15 mg TbDL 12-19 00:00: 00 Yes [id number] 1{tbl} Take 1 tablet by mouth daily. [facility] % (700 mg/patch) patch 12-19 00:00: 00 Yes [id number] Apply 1-2 patches to the area and leave in place for up to 12 hours in a day. Do not reapply patches until the next day. [facility] TbDL 12-19 00:00: 00 Yes [id number] 1{tbl} Take 1 tablet by mouth daily. [facility] % (700 mg/patch) patch 12-19 00:00: 00 Yes [id number] Apply 1-2 patches to the area and leave in place for up to 12 hours in a day. Do not reapply patches until the next day. [facility] ity [facility] meloxicam 15 mg TbDL 16 00:00: 00 Yes [id number] 1{tbl} Take 1 tablet by mouth daily. [facility] (700 mg/patch) patch 16 00:00: 00 Yes [id number] Apply 1-2 patches to the area and leave in place for up to 12 hours in a day. Do not reapply patches until the next day. [facility] meloxicam 15 mg TbDL 16 00:00: 00 Yes [id number] 1{tbl} Take 1 tablet by mouth daily. [facility] lidocaine 5 % (700 mg/patch) patch 16 00:00: 00 05-24 00:00 :00 No [id number] Apply 1-2 patches to the area and leave in place for up to 12 hours in a day. Do not reapply patches until the next day. [facility] meloxicam 15 mg TbDL 16 00:00: 00 05-24 00:00 :00 No [id number] 1{tbl} Take 1 tablet by mouth daily. [facility] lidocaine 5 % (700 mg/patch) patch 16 00:00: 00 05-24 00:00 :00 No [id number] Apply 1-2 patches to the area and leave in place for up to 12 hours in a day. Do not reapply patches until the next day. [facility] meloxicam 15 mg TbDL 16 00:00: 00 05-24 00:00 :00 No [id number] 1{tbl} Take 1 tablet by mouth daily. [facility] lidocaine 5 % (700 mg/patch) patch 16 00:00: 00 05-24 00:00 :00 No [id number] Apply 1-2 patches to the area and leave in place for up to 12 hours in a day. Do not reapply patches until the next day. [facility] meloxicam 15 mg TbDL 16 00:00: 00 05-24 00:00 :00 No [id number] 1{tbl} Take 1 tablet by mouth daily. [facility] methylPREDN ISolone (MEDROL, CLARY,) 4 mg tablets 4-14 00:00: 00 Yes [id number] 84mg Take 21 tablets by mouth SEE-INSTRU CTIONS. follow package directions [facility] methylPREDN ISolone (MEDROL, CLARY,) 4 mg tablets 0 4-14 00:00: 00 Yes [id number] 84mg Take 21 tablets by mouth SEE-INSTRU CTIONS. follow package directions [facility] methylPREDN ISolone (MEDROL, CLARY,) 4 mg tablets 0 414 00:00: 00 Yes [id number] 84mg Take 21 tablets by mouth SEE-INSTRU CTIONS. follow package directions [facility] methylPREDN ISolone (MEDROL, CLARY,) 4 mg tablets 14 00:00: 00 Yes [id number] 84mg Take 21 tablets by mouth SEE-INSTRU CTIONS. follow package directions [facility] methylPREDN ISolone (MEDROL, CLARY,) 4 mg tablets 14 00:00: 00 Yes [id number] 84mg Take 21 tablets by mouth SEE-INSTRU CTIONS. follow package directions [facility] methylPREDN ISolone (MEDROL, CLARY,) 4 mg tablets 14 00:00: 00 Yes [id number] 84mg Take 21 tablets by mouth SEE-INSTRU CTIONS. follow package directions [facility] methylPREDN ISolone (MEDROL, CLARY,) 4 mg tablets 0 414 00:00: 00 Yes [id number] 84mg Take 21 tablets by mouth SEE-INSTRU CTIONS. follow package directions [facility] methylPREDN ISolone (MEDROL, CLARY,) 4 mg tablets 0 4-14 00:00: 00 Yes [id number] 84mg Take 21 tablets by mouth SEE-INSTRU CTIONS. follow package directions [facility] methylPREDN ISolone (MEDROL, CLARY,) 4 mg tablets 0 4-14 00:00: 00 Yes [id number] 84mg Take 21 tablets by mouth SEE-INSTRU CTIONS. follow package directions [facility] methylPREDN ISolone (MEDROL, CLARY,) 4 mg tablets 0 4-14 00:00: 00 Yes [id number] 84mg Take 21 tablets by mouth SEE-INSTRU CTIONS. follow package directions [facility] methylPREDN ISolone (MEDROL, CLARY,) 4 mg tablets 12-17 00:00: 00 Yes [id number] 84mg Take 21 tablets by mouth SEE-INSTRU CTIONS. follow package directions [facility] methylPREDN ISolone (MEDROL, CLARY,) 4 mg tablets 12-17 00:00: 00 05-24 00:00 :00 No [id number] 84mg Take 21 tablets by mouth SEE-INSTRU CTIONS. follow package directions [facility] methylPREDN ISolone (MEDROL, CLARY,) 4 mg tablets 12-17 00:00: 00 05-24 00:00 :00 No [id number] 84mg Take 21 tablets by mouth SEE-INSTRU CTIONS. follow package directions [facility] methylPREDN ISolone (MEDROL, CLARY,) 4 mg tablets 12-17 00:00: 00 05-24 00:00 :00 No [id number] 84mg Take 21 tablets by mouth SEE-INSTRU CTIONS. follow package directions [facility] levETIRAcet am 1,000 mg tablet 10-15 00:00: 00 04-14 00:00 :00 No [id number] 1000mg Take 1 tablet by mouth 2 (two) times daily. [facility] omeprazole 20 mg capsule 10-15 00:00: 00 04-14 00:00 :00 No [id number] 20mg Take 1 capsule by mouth daily. [facility] albuterol 90 mcg/actuati on inhaler 04-27 00:00: 00 Yes [id number] 2{puff} Inhale 2 Puffs every 4 (four) hours as needed for Wheezing or Shortness of Breath. [facility] albuterol 90 mcg/actuati on inhaler 04-27 00:00: 00 Yes [id number] 2{puff} Inhale 2 Puffs every 4 (four) hours as needed for Wheezing or Shortness of Breath. [facility] albuterol 90 mcg/actuati on inhaler 04-27 00:00: 00 Yes [id number] 2{puff} Inhale 2 Puffs every 4 (four) hours as needed for Wheezing or Shortness of Breath. [facility] albuterol 90 mcg/actuati on inhaler 04-27 00:00: 00 Yes [id number] 2{puff} Inhale 2 Puffs every 4 (four) hours as needed for Wheezing or Shortness of Breath. [facility] albuterol 90 mcg/actuati on inhaler 04-27 00:00: 00 Yes [id number] 2{puff} Inhale 2 Puffs every 4 (four) hours as needed for Wheezing or Shortness of Breath. [facility] albuterol 90 mcg/actuati on inhaler 04-27 00:00: 00 Yes [id number] 2{puff} Inhale 2 Puffs every 4 (four) hours as needed for Wheezing or Shortness of Breath. [facility] albuterol 90 mcg/actuati on inhaler 04-27 00:00: 00 Yes [id number] 2{puff} Inhale 2 Puffs every 4 (four) hours as needed for Wheezing or Shortness of Breath. [facility] albuterol 90 mcg/actuati on inhaler 04-27 00:00: 00 Yes [id number] 2{puff} Inhale 2 Puffs every 4 (four) hours as needed for Wheezing or Shortness of Breath. [facility] albuterol 90 mcg/actuati on inhaler 04-27 00:00: 00 Yes [id number] 2{puff} Inhale 2 Puffs every 4 (four) hours as needed for Wheezing or Shortness of Breath. [facility] albuterol 90 mcg/actuati on inhaler 04-27 00:00: 00 Yes [id number] 2{puff} Inhale 2 Puffs every 4 (four) hours as needed for Wheezing or Shortness of Breath. [facility] albuterol 90 mcg/actuati on inhaler 04-27 00:00: 00 Yes [id number] 2{puff} Inhale 2 Puffs every 4 (four) hours as needed for Wheezing or Shortness of Breath. [facility] albuterol 90 mcg/actuati on inhaler 04-27 00:00: 00 05-24 00:00 :00 No [id number] 2{puff} Inhale 2 Puffs every 4 (four) hours as needed for Wheezing or Shortness of Breath. [facility] albuterol 90 mcg/actuati on inhaler 04-27 00:00: 00 05-24 00:00 :00 No [id number] 2{puff} Inhale 2 Puffs every 4 (four) hours as needed for Wheezing or Shortness of Breath. [facility] albuterol 90 mcg/actuati on inhaler 04-27 00:00: 00 05-24 00:00 :00 No [id number] 2{puff} Inhale 2 Puffs every 4 (four) hours as needed for Wheezing or Shortness of Breath. [facility] Immunizations Ordered Immunization Name Filled Immunization Name Date Status Comments Source Influenza Virus Vaccine Quad .5 mL IM 6+ MO 2020-07-10 00:00:00 Completed [facility] Influenza Virus Vaccine Quad .5 mL IM 6+ MO 2020-07-10 00:00:00 Completed [facility] Influenza Virus Vaccine Quad .5 mL IM 6+ MO 2020-07-10 00:00:00 Completed [facility] Influenza Virus Vaccine Quad .5 mL IM 6+ MO 2020-07-10 00:00:00 Completed [facility] Influenza Virus Vaccine Quad .5 mL IM 6+ MO 2020-07-10 00:00:00 Completed [facility] Influenza Virus Vaccine Quad .5 mL IM 6+ MO 2020-07-10 00:00:00 Completed [facility] Influenza Virus Vaccine Quad .5 mL IM 6+ MO (FLUZONE/FLULAVAL/F LUARIX) 2020-07-10 00:00:00 Completed [facility] Influenza Virus Vaccine Quad .5 mL IM 6+ MO (FLUZONE/FLULAVAL/F LUARIX) 2020-07-10 00:00:00 Completed [facility] Influenza Virus Vaccine Quad .5 mL IM 6+ MO (FLUZONE/FLULAVAL/F LUARIX) 2020-07-10 00:00:00 Completed [facility] Influenza Virus Vaccine Quad .5 mL IM 6+ MO (FLUZONE/FLULAVAL/F LUARIX) 2020-07-10 00:00:00 Completed [facility] Influenza Virus Vaccine Quad .5 mL IM 6+ MO 2020-07-10 00:00:00 Completed [facility] Influenza Virus Vaccine Quad .5 mL IM 6+ MO 2020-07-10 00:00:00 Completed [facility] Influenza Virus Vaccine Quad .5 mL IM 6+ MO 2020-07-10 00:00:00 Completed [facility] Influenza Virus Vaccine Quad .5 mL IM 6+ MO (FLUZONE/FLULAVAL/F LUARIX) Unknown Completed [facility] Influenza Virus Vaccine Quad .5 mL IM 6+ MO (FLUZONE/FLULAVAL/F LUARIX) Unknown Completed [facility] Influenza Virus Vaccine Quad .5 mL IM 6+ MO (FLUZONE/FLULAVAL/F LUARIX) Unknown Completed [facility] Influenza Virus Vaccine Quad .5 mL IM 6+ MO (FLUZONE/FLULAVAL/F LUARIX) Unknown Completed [facility] Influenza Virus Vaccine Quad .5 mL IM 6+ MO (FLUZONE/FLULAVAL/F LUARIX) Unknown Completed [facility] Vital Signs Vital Name Observation Time Observation Value Comments S ource Systolic blood pressure 2023-07-06 19:19:00 137 mm[Hg] [facility] Diastolic blood pressure 2023-07-06 19:19:00 79 mm[Hg] [facility] Heart rate 2023-07-06 19:19:00 64 /[facility] Body temperature 2023-07-06 19:19:00 37 Nena [facility] Body height 2023-07-06 19:19:00 170.2 cm [facility] Body weight 2023-07-06 19:19:00 73.483 kg [facility] BMI 2023-07-06 19:19:00 25.37 kg/m2 [facility] Systolic blood pressure 2023-05-24 20:19:00 131 mm[Hg] [facility] Diastolic blood pressure 2023-05-24 20:19:00 75 mm[Hg] [facility] Heart rate 2023-05-24 20:19:00 52 /min [facility] Body temperature 2023-05-24 20:19:00 36.78 Nena [facility] Body height 2023-05-24 20:19:00 167.6 cm [facility] Body weight 2023-05-24 20:19:00 77.111 kg [facility] BMI 2023-05-24 20:19:00 27.44 kg/m2 [facility] Systolic blood pressure 2022-04-14 19:12:00 137 mm[Hg] [facility] Diastolic blood pressure 2022-04-14 19:12:00 72 mm[Hg] [facility] Heart rate 2022-04-14 19:12:00 56 [facility] 2022-04-14 19:12:00 170.2 cm [facility] Body weight 2022-04-14 19:12:00 78.472 kg [facility] BMI 2022-04-14 19:12:00 27.10 kg/m2 [facility] Oxygen saturation in Arterial blood by Pulse oximetry 2022-04-14 19:12:00 99 /min [facility] Procedures Procedure Date / Time Performed Performing Clinicia n Source CONSENT/REFUSAL FOR DIAGNOSIS AND TREATMENT 2023-05-24 20:01:05 Doctor Unassigned, [place] [facility] ASSIGNMENT OF BENEFITS 2023-05-24 20:00:48 Docto r Unassigned, [place] [facility] Encounters Start Date/Time End Date/Time Encounter Type Admission Type Attending Clinicians Care Facility Care Department Encounter ID Source 2021-07-05 13:21:58 Emergency [facility] [id number] [facility] 2023-08-08 00:00:00 2023-08-08 00:00:00 Refill Victoria Avila [facility] 1..840.114 350.1.13.10 4.2.7.2.686 [id number] [facility] 2023-07-06 14:30:00 2023-07-06 15:00:00 Office Visit SuzannedaynaBlanco esquivel [facility] 1..840.114 350.1.13.10 4.2.7.2.686 [id number] [facility] 2023-07-06 14:30:00 2023-07-06 14:30:00 Outpatient BLANCO WILKINS [facility] [id number] [facility] 2023-07-01 12:40:00 2023-07-01 12:40:00 Outpatient FRANKIE CHANDLER HOWARD [facility] [id number] [facility] 2023-05-24 15:30:00 2023-05-24 15:45:00 Office Visit Manish Blanco [facility] 1..840.114 350.1.13.10 4.2.7.2.686 [id number] [facility] 2023-05-24 15:30:00 2023-05-24 15:30:00 Outpatient BLANCO WILKINS [facility] [id number] [facility] 2023-05-24 00:00:00 2023-05-24 00:00:00 Orders Only Doctor Unassigned, [place] [facility] 1..840.114 350.1.13.10 4.2.7.2.686 [id number] [facility] 2023-05-12 00:00:00 2023-05-12 00:00:00 Refill SuzannedaynaBlanco esquivel [facility] 1.2840.114 350.1.13.10 4.2.7.2.686 [id number] [facility] 2023-05-02 00:00:00 2023-05-02 00:00:00 Refill Blanco Vázquez [facility] DA?[facility] 1.2840.114 350.1.13.10 4.2.7.2.686 [id number] [facility] 2023-04-29 00:00:00 2023-04-29 00:00:00 Refill Blanco Vázquez [facility] 1.2840.114 350.1.13.10 4.2.7.2.686 [id number] [facility] 2023-04-26 00:00:00 2023-04-26 00:00:00 Refill Khurram Disla [facility] DA?[facility] 1.2840.114 350.1.13.10 4.2.7.2.686 [id number] [facility] 2023-04-18 00:00:00 2023-04-18 00:00:00 [facility] 1.2840.114 350.1.13.10 4.2.7.2.686 [id number] [facility] 2023-03-02 00:00:00 2023-03-02 00:00:00 Refill Khurram Disla [facility] DA?[facility] 1.2840.114 350.1.13.10 4.2.7.2.686 [id number] [facility] 2023-02-01 00:00:00 2023-02-01 00:00:00 RefBlanco Vides [facility] DA?[facility] 1.2.840.114 350.1.13.10 4.2.7.2.686 [id number] [facility] 2022-12-29 00:00:00 2022-12-29 00:00:00 Blanco Armijo [facility] DA?[facility] 1..840.114 350.1.13.10 4.2.7.2.686 [id number] [facility] 2022-11-24 00:00:00 2022-11-24 00:00:00 Blanco Armijo [facility] DA?[facility] 1..840.114 350.1.13.10 4.2.7.2.686 [id number] [facility] 2022-10-27 00:00:00 2022-10-27 00:00:00 Blanco Armijo [facility] DA?[facility] 1.2.840.114 350.1.13.10 4.2.7.2.686 [id number] [facility] 2022-04-20 07:30:00 2022-04-20 07:30:00 Outpatient BLANCO WILKINS [facility] [id number] [facility] 2022-04-14 14:00:00 2022-04-14 14:30:00 Office Visit Nighat Khurram [facility] DA?[facility] 1.2.840.114 350.1.13.10 4.2.7.2.686 [id number] [facility] 2022-04-14 14:00:00 2022-04-14 14:00:00 Outpatient R KHURRAM DISLA [facility] [id number] [facility] 2022-04-14 00:00:00 2022-04-14 00:00:00 Telephone Blanco Vázquez [facility] DA?[facility] 1.2840.114 350.1.13.10 4.2.7.2.686 [id number] [facility] 2022-04-14 00:00:00 2022-04-14 00:00:00 Orders Only Doctor Unassigned, [place] [facility] 1.2840.114 350.1.13.10 4.2.7.2.686 [id number] [facility] 2022-04-13 00:00:00 2022-04-13 00:00:00 Refill Manish [facility] DA?[facility] 1.2840.114 350.1.13.10 4.2.7.2.686 [id number] [facility] 2022-04-13 00:00:00 2022-04-13 00:00:00 Refill Manish [facility] DA?[facility] 1.2840.114 350.1.13.10 4.2.7.2.686 [id number] [facility] 2022-04-12 00:00:00 2022-04-12 00:00:00 Refill Blanco Vázquez [facility] DA?[facility] 1.2840.114 350.1.13.10 4.2.7.2.686 [id number] [facility] 2022-04-09 00:00:00 2022-04-09 00:00:00 Refill Blanco Vázquez [facility] DA?[facility] 1.2840.114 350.1.13.10 4.2.7.2.686 [id number] [facility] 2022-01-26 00:00:00 2022-01-26 00:00:00 Arielle Vázquez Blanco Jackman [facility] 1..840.114 350.1.13.10 4.2.7.2.686 [id number] [facility] 2021-05-26 08:00:00 2021-05-26 08:00:00 Outpatient CHANDLER HANKINS [facility] [id number] [facility] 2021-05-12 13:00:00 2021-05-12 13:00:00 Outpatient MARYLOU ONEIL DENISE [facility] [id number] [facility] 2021-05-08 00:00:00 2021-05-08 00:00:00 Letter (Out) Marina Cottrell [facility] 1.840.114 350.1.13.10 4.2.7.2.686 [id number] [facility] 2021-05-06 00:00:00 2021-05-06 00:00:00 Telephone Marylou Funez [facility] 1.840.114 350.1.13.10 4.2.7.2.686 [id number] [facility] 2021-05-05 16:58:05 2021-05-05 17:08:05 Laboratory Only Only, Ang Db Test Onelia Dubose [facility] 1..840.114 350.1.13.10 4.2.7.2.686 [id number] [facility] 2021-05-05 16:35:00 2021-05-05 16:35:00 Outpatient Zaheer [facility] [id number] [facility] 2021-04-13 08:20:00 2021-04-13 08:20:00 Outpatient DANIEL SIMEON [facility] [id number] [facility] 2021-04-01 08:20:00 2021-04-01 08:20:00 Outpatient MARYLOU ONEIL DENISE [facility] [id number] [facility] 2021-04-01 00:00:00 2021-04-01 00:00:00 Case Management Emi Ferro [facility] Clari Mirza [facility] 1..114 350.1.13.10 4.2.7.2.686 [id number] [facility] 2021-03-24 09:28:00 2021-03-24 10:17:31 Office Visit Marylou Funez [facility] 1.114 350.1.13.10 4.2.7.2.686 [id number] [facility] 2021-03-24 09:30:00 2021-03-24 09:30:00 Outpatient MARYLOU ONEIL DENISE [facility] [id number] [facility] 2021-02-18 00:00:00 2021-02-18 00:00:00 Telephone Marylou Funez [facility] 1..114 350.1.13.10 4.2.7.2.686 [id number] [facility] 2021-02-16 00:00:00 2021-02-16 00:00:00 Telephone Marylou Funez [facility] 1.114 350.1.13.10 4.2.7.2.686 [id number] [facility] 2021-02-10 13:46:16 2021-02-10 23:59:00 Hospital Encounter Marylou Funez [facility] 1.114 350.1.13.10 4.2.7.2.686 [id number] [facility] 2021-02-10 14:00:00 2021-02-10 14:00:00 Outpatient MARYLOU ONEIL DENISE [facility] [id number] [facility] 2021-02-06 00:00:00 2021-02-06 00:00:00 Telephone Marylou Funez [facility] 1.2840.114 350.1.13.10 4.2.7.2.686 [id number] [facility] 2021-01-26 09:20:00 2021-01-26 09:20:00 Outpatient FRANKIE CHANDLER HOWARD [facility] [id number] [facility] 2021-01-20 08:47:22 2021-01-20 09:41:41 [facility] 1.2.840.114 350.1.13.10 4.2.7.2.686 [id number] [facility] 2021-01-20 09:00:00 2021-01-20 09:00:00 Outpatient MARYLOU ONEIL DENISE [facility] [id number] [facility] 2021-01-20 00:00:00 2021-01-20 00:00:00 Orders Only Doctor Unassigned, [place] [facility] 1.2.840.114 350.1.13.10 4.2.7.2.686 [id number] [facility] 2021-01-12 09:00:00 2021-01-12 09:00:00 Outpatient DANIEL SIMEON [facility] [id number] [facility] 2021-01-06 08:54:52 2021-01-06 09:27:00 [facility] 1.2.840.114 350.1.13.10 4.2.7.2.686 [id number] [facility] 2021-01-06 09:00:00 2021-01-06 09:00:00 Outpatient R MEÑO CAPELLAN [facility] [id number] [facility] 2021-01-01 18:01:46 2021-01-01 23:59:00 Hospital Encounter Blake [facility] [place] [facility] 1.2.840.114 350.1.13.10 4.2.7.2.686 [id number] [facility] 2021-01-01 18:01:46 2021-01-01 23:59:00 Outpatient R MEÑO CAPELLAN [facility] [id number] [facility] 2021-01-01 00:00:00 2021-01-01 00:00:00 [id number] 2020-12-23 07:52:36 2020-12-23 08:39:47 [facility] 1.2.840.114 350.1.13.10 4.2.7.2.686 [id number] [facility] 2020-12-23 08:00:00 2020-12-23 08:00:00 Outpatient R MEÑO CAPELLAN [facility] [id number] [facility] 2020-12-23 00:00:00 2020-12-23 00:00:00 [facility] 1.2.840.114 350.1.13.10 4.2.7.2.686 [id number] [facility] 2020-12-19 10:17:00 2020-12-19 12:11:00 Emergency Zuleika Cowart [facility] 1.2.840.114 350.1.13.10 4.2.7.2.686 [id number] [facility] 2020-12-18 00:00:00 2020-12-18 00:00:00 Telephone Blanco Vázquez [facility] 1.2.840.114 350.1.13.10 4.2.7.2.686 [id number] [facility] 2020-12-17 10:45:00 2020-12-17 23:59:00 Hospital Encounter Blanco Vázquez pavithra [facility] 1.2.840.114 350.1.13.10 4.2.7.2.686 [id number] [facility] 2020-12-17 10:12:52 2020-12-17 10:27:52 Office Visit Blanco Vázquez [facility] 1.2.840.114 350.1.13.10 4.2.7.2.686 [id number] [facility] 2020-12-17 10:15:00 2020-12-17 10:15:00 Outpatient R BLANCO VÁZQUEZ [facility] [id number] [facility] 2020-10-15 14:16:52 2020-10-15 14:31:52 Office Visit Blanco Vázquez [facility] 1.2.840.114 350.1.13.10 4.2.7.2.686 [id number] [facility] 2020-10-15 14:15:00 2020-10-15 14:15:00 Outpatient R [facility] [id number] [facility] 2020-09-11 15:50:26 2020-09-11 16:33:14 Urgent Randa Posada Leslie A [facility] Building One .114 350.1.13.10 4.2.7.2.686 [id number] [facility] 2020-09-11 15:40:00 2020-09-11 15:40:00 Outpatient [facility]PA [facility] [id number] [facility] 2020-08-26 14:00:00 2020-08-26 14:00:00 Outpatient FRANKIE CHANDLER [facility] [id number] [facility] 2020-08-12 16:11:47 2020-08-12 16:26:47 Office Visit Blanco Vázquez [facility] Building One 1.84.114 350.1.13.10 4.2.7.2.686 [id number] [facility] 2020-08-12 16:15:00 2020-08-12 16:15:00 Outpatient [facility] [id number] [facility] 2020-08-12 10:30:00 2020-08-12 10:30:00 Outpatient [facility] [id number] [facility] 2020-08-02 00:00:00 2020-08-02 00:00:00 Orders Only Doctor Unassigned, [place] [facility] .114 350.1.13.10 4.2.7.2.686 [id number] [facility] 2020-07-28 08:43:04 2020-07-28 09:30:34 Office Visit Frankie Galvan [facility] Building 1..114 350.1.13.10 4.2.7.2.686 [id number] [facility] 2020-07-28 08:40:00 2020-07-28 08:40:00 Outpatient FRANKIE CHANDLER [facility] [id number] [facility] 2020-07-15 13:54:22 2020-07-15 14:24:22 Office Visit Blanco Vázquez [facility] Office Building One 1.2.114 350.1.13.10 4.2.7.2.686 [id number] [facility] 2020-07-15 14:00:00 2020-07-15 14:00:00 Outpatient Zaheer VÁZQUEZ [facility] [id number] [facility] 2020-07-09 07:20:00 2020-07-10 16:20:00 Emergency Darlin Munoz Wei [facility] 1..114 350.1.13.10 4.2.7.2.686 [id number] [facility] 2020-07-09 07:16:00 2020-07-09 07:16:00 Emergency X [facility] ERT [id number] [facility] 2020-07-02 14:39:00 2020-07-02 16:21:00 Emergency Daisha Wheeler [facility] 1..114 350.1.13.10 4.2.7.2.686 [id number] [facility] 2020-07-02 14:13:00 2020-07-02 14:13:00 Emergency X [facility] ERT [id number] [facility] 2019-04-27 11:02:55 2019-04-27 14:01:00 Emergency Angela Kamara [facility] 1.20.114 350.1.13.10 4.2.7.2.686 [id number] 2019-04-27 11:02:55 2019-04-27 14:01:00 Emergency Angela Kamara [facility] 1.20.114 350.1.13.10 4.2.7.2.686 [id number] [facility] Notes Date/Time Note Provider Source 2023-05-12 12:28:40 ZHXBqhejIWS8ulWu/3Lu AtIdobEWXNBFe+Y GjL6KmsqQa1ViXTzhYh8o+vR4ki457782-5 2:28:40 Images from the original note were [...] last 12 months To be filled at: [facility] [id number] [address] Menjivar Recent VisitsDate Type Provider Dept [...] authorizing provider and meeting all other requirements 72963-3Zwqovdpac encounter SpncSF7892-13-91H13:28:50Telephone encounter NoteTXT1.2.840.556557.1.13.104.2.7. 2.391245|[id number] for patient [id number] M Fisher [address] Ab[id number] 6HQOODRTKYYMFRGJQCFQMFL6767-46-70U3 2:28:501.2.840.570803.1.72.3.15|1.2 .840.081624.1.13.104.2.7.2.727879_1 [id number] Phyllis Garcia INSULATION APPLICATOR [facility] 2023-05-02 10:17:09 7BUX5GByi+HaySdCHPgk PUm8uoAh43dXqsz CkHEliIRJiT1T85Nij1R8CeSqtsQ58671-0 8-28T10:17:09 Patient is out of medications and is needing refills. He states he has a follow up with Manish in May. 88388-0Nlnngcvyh encounter CaaxXY2031-58-24J25:18:08Telephone encounter NoteTXT1.2.840.783823.1.13.104.2.7. 2.725428|[id number] for patient njij06561-2EvmpBYXJUXTJ[address] Yi[id number] 0IVEEJBRANACCDSYNXAOFCY8775-33-10Y3 0:18:081.2.840.949686.1.72.3.15|1.2 .840.284294.1.13.104.2.7.2.727879_1 [id number] [facility] 2023-04-26 10:35:45 XKguF/5VOQZnW7nD88k1 53jqI2fHkJOy1WT BxeeJs3SHgMMW2G5xDe6nUrQ1kdxI9337-1 04-26T10:35:45 Images from the original note were [...] within 360 days To be filled at: [facility] [id number] [address] Recent VisitsDate Type Provider Dept 04/14/22 Office Visit Khurram Disla FNP [facility] Showing recent visits within past 540 days with a meds authorizing provider and meeting all other requirementsFuture AppointmentsNo visits were found meeting these conditions.Showing future appointments within next 150 days with a meds authorizing provider and meeting all other requirements 91126-5Ajgyrctvg encounter TrlcID5457-97-38I90:35:54Telephone encounter NoteTXT1.2.840.981230.1.13.104.2.7. 2.869515|[id number] for patient [id number] M Fisher [address] Hn[id number] 9VBDNJAUXKICCMLCPAGWVGX1482-51-79Z9 0:35:541.2.840.933098.1.72.3.15|1.2 .840.763892.1.13.104.2.7.2.727879_1 [id number] Phyllis Garcia INSULATION APPLICATOR [facility]"
--- NOTE | 2023-10-02 11:43 | RAD REPORT ---
EXAM DESCRIPTION: CT - Spine Lumbar Wo Con - 10/02/2023 11:31 am CLINICAL HISTORY: Radiculopathy. Pain;Numbness/tingling;Radiculopathy COMPARISON: No comparisons TECHNIQUE: Axial noncontrast CT imaging of the lumbar spine was performed with coronal and sagittal re-formatted images. All CT scans are performed using dose optimization technique as appropriate and may include automated exposure control or mA/KV adjustment according to patient size. FINDINGS: No acute lumbar spine fracture seen. Grade 2 anterolisthesis of L5 on S1 with unilateral r ight pars defect. This results in severe bilateral neural foraminal narrowing. A mild broad-based di sc bulge is also present at L4-5 which results in moderate bilateral neural foraminal narrowing. No c entral spinal stenosis. Small volume of nonspecific pelvic free fluid. Intervertebral disc disease assessment is inherently limited by CT. Within these limitations, no high -grade canal stenosis suspected. IMPRESSION: Grade 2 anterolisthesis of L5 on S1 with unilateral right-sided pars defect. Severe bila teral neural foraminal narrowing at L5-S1. If the patient has a radiculopathy, this is the most likel y level. No high-grade central spinal stenosis identified. No acute fracture. Small volume of pelvic free fluid which is nonspecific.
[2023-10-02 11:46] LABS: Absolute Lymphocytes (CBC) 0.7 K/uL (0.7-4.9); Lymphocytes % 5.1 % (15.3-44.8); MCV 88.1 fL (80-100); MPV 9.5 fL (7.6-11.3); Platelets 222 thou/uL (152-406); RBC Red Blood Cell Count 5.22 M/uL (4.33-5.43)
[2023-10-02 11:48] LABS: Albumin 3.7 g/dL (3.4-5.0); Bilirubin Total 0.4 mg/dL (0.2-1.0); Potassium 3.7 mEq/L (3.5-5.1); Protein, Total 6.9 g/dL (6.4-8.2)
[2023-10-02 12:24] LABS: Blood Morphology Comment NOT SEEN (NOT SEEN); Platelet Estimate ADEQ; White Blood Cell Scan OK (OK)
--- NOTE | 2023-10-02 13:32 | EDPHYS ---
Physician Documentation [facility] Name: Eugenio Villarreal Age: 58 yrs Sex: Male : 1965 Arrival Date: 10/02/2023 Time: 10:48 Bed 15 Private MD: Javi Hammond ED Physician Nasim Olguin HPI: 10/02 11:09 This 58 yrs old Male presents to ER via Ambulatory with complaints of Back Pain. sb4 11:09 The patient presents with pain that is acute, with no known mechanism of injury, and sb4 decreased range of motion. The symptoms are located in the low back. The symptoms are located in the right low back. Onset: The symptoms/episode began/occurred 2 day(s) ago, and became worse last night. The pain radiates to the right leg. Associated signs and symptoms: Pertinent negatives: dysuria, fever, hematuria, incontinence, nausea, numbness, tingling, urinary retention, vomiting. The problem was sustained without known cause. The patient has experienced a previous episode, approximately 2.5 years ago. The patient has been recently seen at the [facility], yesterday, for similar complaints was given a prescription for pain medications. Historical: - Allergies: 10:58 Clarithromycin; mb9 - Home Meds: 10:58 Prilosec Oral [Active]; amlodipine oral [Active]; Keppra Oral [Active]; mb9 - PMHx: 10:58 Hypertension; Seizure; mb9 - PSHx: 10:58 None; mb9 - Immunization history:: Adult Immunizations up to date. - Social history:: Smoking status: Patient denies any tobacco usage or history of. ROS: 11:09 Constitutional: Negative for fever, chills, and weight loss, sb4 11:09 Back: Positive for pain at rest, pain with movement, radiated pain, of the right low back, 11:09 All other systems are negative, Exam: 11:09 Head/Face: Normocephalic, atraumatic. Eyes: Extra-ocular motions intact. Periorbital sb4 areas with no swelling, redness, or edema. ENT: Mucous membranes moist. Cardiovascular: Regular rate and rhythm with a normal S1 and S2. Respiratory: Lungs have equal breath sounds bilaterally, clear to auscultation and percussion. No rales, rhonchi or wheezes noted. No increased work of breathing, no retractions or nasal flaring. Abdomen/GI: Soft, non-tender, no distension. Skin: Warm, dry with normal turgor. Normal color with no rashes, no lesions, and no evidence of cellulitis. MS/ Extremity: Pulses equal, no cyanosis. Neurovascular intact. Full, normal range of motion. Neuro: Awake and alert, GCS 15, oriented to person, place, time, and situation. Motor strength 5/5 in all extremities. Sensory grossly intact. 11:09 Constitutional: The patient appears alert, awake, in obvious pain, 11:09 Back: pain, that is moderate, of the right low back, ROM is painful, normal spinal alignment noted, CVA tenderness, is absent, vertebral tenderness, is not appreciated, muscle spasm, is not present, Straight leg raises: right lower extremity illicits pain, 11:09 Neuro: Exam negative for focal neuro deficits, motor deficits, disorientation, dizziness, gait abnormality, Vital Signs: 11:01 BP 168 / 92; Pulse 70; Resp 18; Temp 98; Pulse Ox 100% ; Weight 81.65 kg; Height 5 ft. mb9 6 in. ; Pain 10/10; 12:19 BP 172 / 93; Pulse 88; Resp 18; Pulse Ox 100% ; Pain 10/10; mb9 13:32 BP 166 / 86; Pulse 61; Resp 18 S; Pulse Ox 99% on R/A; as6 11:01 Body Mass Index 29.05 (81.65 kg, 167.64 cm) mb9 11:01 Pain Scale: Adult mb9 12:19 Pain Scale: Adult mb9 MDM: 10:56 Patient medically screened. sb4 11:09 Differential diagnosis: chronic back pain, Fracture Joint Injury Ligament Injury sb4 Neoplasm Pyelonephritis Renal Infarction ruptured disc, spinal injury, sprain, Ureterolithiasis vertebral fracture. 13:31 Data reviewed: vital signs, nurses notes, lab test result(s), radiologic studies, and sb4 as a result, I will discharge patient. Care significantly affected by the following chronic conditions: Hypertension. Counseling: I had a detailed discussion with the patient and/or guardian regarding the historical points, exam findings, and any diagnostic results supporting the discharge/admit diagnosis, lab results, radiology results, the need for outpatient follow up, spine, to return to the emergency department if symptoms worsen or persist or if there are any questions or concerns that arise at home. 10/02 11:08 Order name: CBC with Diff; Complete Time: 12:44 sb4 10/02 11:08 Order name: CMP; Complete Time: 11:49 sb4 10/02 11:08 Order name: Urinalysis w/ reflexes sb4 10/02 12:24 Order name: CBC Smear Scan; Complete Time: 12:44 EDMS 10/02 11:08 Order name: CT Lumbar Spine Wo Con; Complete Time: 11:47 sb4 10/02 11:08 Order name: IV Saline Lock; Complete Time: 11:23 sb4 10/02 11:08 Order name: Labs collected and sent; Complete Time: 11:23 sb4 Administered Medications: 11:18 Drug: Diazepam IVP 5 mg IVP once Route: IVP; Site: right antecubital; mb9 12:20 Follow up: Response: No adverse reaction mb9 11:23 Drug: NS 0.9% IV 1000 ml IV at 1 bolus Per protocol; 1000 mL bolus Route: IV; Rate: 1 mb9 bolus; Site: right antecubital; 12:34 Follow up: Response: No adverse reaction; IV Status: Completed infusion mb9 11:23 Drug: TORadol - Ketorolac IVP 15 mg IVP once Route: IVP; Site: right antecubital; mb9 12:20 Follow up: Response: No adverse reaction mb9 12:18 Drug: Ondansetron IVP 4 mg IVP once; over 2 minutes Route: IVP; Site: right antecubital;mb9 12:33 Follow up: Response: No adverse reaction mb9 12:20 Drug: morphine IVP or IV 4 mg IVP once over 4 mins Route: IVP; Infused Over: 4 mins; mb9 Site: right antecubital; 12:33 Follow up: Response: No adverse reaction mb9 13:41 Drug: HYDROcodone-acetaminophen PO 5 mg-325 mg 2 tabs PO once Route: PO; as6 13:41 Follow up: Response: No adverse reaction as6 Disposition: 17:35 Co-signature as Attending Physician, Nasim Olguin MD I reviewed the patient's care rt provided by the Advanced Practice Provider and agree with the diagnosis and treatment plan. Disposition Summary: 10/02/23 13:32 Discharge Ordered Notes: Location: Home sb4 Problem: an ongoing problem sb4 Symptoms: have improved sb4 Condition: Stable sb4 Diagnosis - grade 2 anterolisthesis L5-S1, right sided pars defect sb4 - severe bilateral neural forminal narrowing L5-S1 sb4 Followup: sb4 - With: Javi Hammond MD - When: 2 - 3 days - Reason: Recheck today's complaints, Re-evaluation by your physician Discharge Instructions: - Discharge Summary Sheet sb4 - Low Back Sprain or Strain Rehab sb4 Forms: - Medication Reconciliation Form sb4 - Thank You Letter sb4 - Antibiotic Education sb4 - Prescription Opioid Use sb4 - Patient Portal Instructions sb4 - Leadership Thank You Letter sb4 Prescriptions: - acetaminophen-codeine 300-30 mg Oral tablet - take 2 tablet ORAL route every 6 hours as needed for pain; 20 tablet; Refills: sb4 0, Product Selection Permitted - Diclofenac Sodium 75 mg Oral Tablet Sustained Release - take 1 tablet ORAL route 2 times per day; 30 tablet; Refills: 0, Product sb4 Selection Permitted - Medrol (Dean) 4 mg Oral Tablets, Dose Pack - take 1 tablet ORAL route as directed - follow package instructions; 1 packet; sb4 Refills: 0, Product Selection Permitted Signatures: Dispatcher [employer] Patel Jiang RN RN as6 Rosa Tello PACandelaria PACandelaria sb4 Gricelda Mann RN RN mb9 Nasim Olguin MD MD rt
--- NOTE | 2023-10-02 13:32 | ER ---
Nurse's Notes [facility] Name: Eugenio Villarreal Age: 58 yrs Sex: Male : 1965 Arrival Date: 10/02/2023 Time: 10:48 Bed 15 Private MD: Javi Hammond Diagnosis: grade 2 anterolisthesis L5-S1, right sided pars defect;severe bilateral neural forminal narrowing L5-S1 Presentation: 10/02 11:01 Chief complaint: Patient states: "I was here yesterday for my back pain and it got mb9 worse today. It's severe, constant, and walking or doing anything makes it worse.". Coronavirus screen: Vaccine status: Patient reports receiving the 2nd dose of the covid vaccine. Ebola Screen: No symptoms or risks identified at this time. Initial Sepsis Screen: Does the patient meet any 2 criteria? No. Patient's initial sepsis screen is negative. Does the patient have a suspected source of infection? No. Patient's initial sepsis screen is negative. Risk Assessment: Do you want to hurt yourself or someone else? Patient reports no desire to harm self or others. Onset of symptoms was October 02, 2023. 11:01 Method Of Arrival: Ambulatory mb9 11:01 Acuity: KASHIF 3 mb9 Triage Assessment: 11:03 General: Appears uncomfortable, Behavior is calm, cooperative. Pain: Complains of pain mb9 in back Pain radiates to right leg Pain currently is 10 out of 10 on a pain scale. Quality of pain is described as sharp, shooting, Pain began 2-3 days ago. Is continuous, Aggravated by increased activity, repositioning, weight bearing. EENT: No signs and/or symptoms were reported regarding the EENT system. Neuro: [place] Agitation-Sedation Scale (RASS): 0 - Alert and Calm Level of Consciousness is awake, alert, obeys commands, Oriented to person, place, time, situation, Appropriate for age. Cardiovascular: Patient's skin is warm and dry. Respiratory: Airway is patent Respiratory effort is even, unlabored, Respiratory pattern is regular, symmetrical. GI: Abdomen is round non-distended, Bowel sounds present X 4 quads. Abd is soft and non tender X 4 quads. : Denies burning with urination, inability to void, pain urinary frequency, urgency. Derm: Skin is pink, warm \\T\\ dry. Musculoskeletal: Range of motion: intact in all extremities. Historical: - Allergies: 10:58 Clarithromycin; mb9 - Home Meds: 10:58 Prilosec Oral [Active]; amlodipine oral [Active]; Keppra Oral [Active]; mb9 - PMHx: 10:58 Hypertension; Seizure; mb9 - PSHx: 10:58 None; mb9 - Immunization history:: Adult Immunizations up to date. - Social history:: Smoking status: Patient denies any tobacco usage or history of. Screenin:04 [facility] ED Fall Risk Assessment (Adult) History of falling in the last 3 months, mb9 including since admission No falls in past 3 months (0 pts) Confusion or Disorientation No (0 pts) Intoxicated or Sedated No (0 pts) Impaired Gait No (0 pts) Mobility Assist Device Used No (0 pt) Altered Elimination No (0 pt) Score/Fall Risk Level 0 - 2 = Low Risk Oriented to surroundings, Maintained a safe environment, Educated pt \\T\\ family on fall prevention, incl call for assistance when getting out of bed. Abuse screen: Denies threats or abuse. Nutritional screening: No deficits noted. Tuberculosis screening: No symptoms or risk factors identified. Assessment: 11:04 Reassessment: see triage assessment. mb9 12:19 Reassessment: No changes from previously documented assessment. Patient and/or family mb9 updated on plan of care and expected duration. Pain level reassessed. Patient is alert, oriented x 3, equal unlabored respirations, skin warm/dry/pink. Vital Signs: 11:01 BP 168 / 92; Pulse 70; Resp 18; Temp 98; Pulse Ox 100% ; Weight 81.65 kg; Height 5 ft. mb9 6 in. ; Pain 10/10; 12:19 BP 172 / 93; Pulse 88; Resp 18; Pulse Ox 100% ; Pain 10/10; mb9 13:32 BP 166 / 86; Pulse 61; Resp 18 S; Pulse Ox 99% on R/A; as6 11:01 Body Mass Index 29.05 (81.65 kg, 167.64 cm) mb9 11:01 Pain Scale: Adult mb9 12:19 Pain Scale: Adult mb9 ED Course: 10:50 Patient arrived in ED. mr 10:51 Javi Hammond MD is Private Physician. mr 10:56 Rosa Tello [facility]-C [facility]. sb4 10:56 Nasim Olguin MD is Attending Physician. sb4 10:58 Gricelda Mann, PABLO is Primary Nurse. mb9 10:58 Arm band placed on. mb9 11:02 Triage completed. mb9 11:04 Placed in gown. Bed in low position. Call light in reach. Side rails up X 1. Client mb9 placed on continuous cardiac and pulse oximetry monitoring. NIBP monitoring applied. 11:23 CBC with Diff Sent. mb9 11:23 CMP Sent. mb9 11:23 Inserted saline lock: 18 gauge in right antecubital area, using aseptic technique. mb9 11:30 CT Lumbar Spine Wo Con In Process Unspecified. EDMS 13:32 Javi Hammond MD is Referral Physician. sb4 13:33 Provided Education on: rx teaching, follow up. as6 13:33 No provider procedures requiring assistance completed. as6 13:42 IV discontinued, intact, bleeding controlled, No redness/swelling at site. Pressure as6 dressing applied. Administered Medications: 11:18 Drug: Diazepam IVP 5 mg IVP once Route: IVP; Site: right antecubital; mb9 12:20 Follow up: Response: No adverse reaction mb9 11:23 Drug: NS 0.9% IV 1000 ml IV at 1 bolus Per protocol; 1000 mL bolus Route: IV; Rate: 1 mb9 bolus; Site: right antecubital; 12:34 Follow up: Response: No adverse reaction; IV Status: Completed infusion mb9 11:23 Drug: TORadol - Ketorolac IVP 15 mg IVP once Route: IVP; Site: right antecubital; mb9 12:20 Follow up: Response: No adverse reaction mb9 12:18 Drug: Ondansetron IVP 4 mg IVP once; over 2 minutes Route: IVP; Site: right antecubital;mb9 12:33 Follow up: Response: No adverse reaction mb9 12:20 Drug: morphine IVP or IV 4 mg IVP once over 4 mins Route: IVP; Infused Over: 4 mins; mb9 Site: right antecubital; 12:33 Follow up: Response: No adverse reaction mb9 13:41 Drug: HYDROcodone-acetaminophen PO 5 mg-325 mg 2 tabs PO once Route: PO; as6 13:41 Follow up: Response: No adverse reaction as6 Medication: 11:04 VIS not applicable for this client. mb9 Outcome: 13:32 Discharge ordered by . sb4 13:33 Condition: stable as6 13:33 Discharged to home ambulatory, with significant other, as6 13:42 Discharge instructions given to patient, Instructed on discharge instructions, follow as6 up and referral plans. medication usage, Demonstrated understanding of instructions, follow-up care, medications, Prescriptions given X 3, 13:42 Patient left the ED. as6 Signatures: Dispatcher [employer] EDMS Gricelda Dean, Reg Aldo mr Patel Adam, RN RN as6 Rosa Tello PACandelaria PACandelaria ruiz4 Gricelda Mann, RN RN mb9
[2023-10-02 13:44] LABS: Specific Gravity 1.025 (1.005-1.030); Urine Bacteria None Seen /HPF (<20); Urine Bilirubin NEGATIVE (Negative); Urine Blood 2+ (Negative); Urine Clarity Clear (Clear); Urine Color Light-Yellow (Yellow); Urine Glucose NEGATIVE (Negative); Urine Mucus Slight /HPF (None Seen); Urine Protein TRACE (Negative); Urine Urobilinogen Normal (Normal)
[2023-10-02 16:38] VITALS: BP 166/86; TEMP 98; O2SAT 99
== END ==
LOC: ER 10:48
DX: M43.17 Spondylolisthesis, lumbosacral region (principal); M48.07 Spinal stenosis, lumbosacral region
CPT/HCPCS: 36415; 72131; 80053; 81001; 85025; J2405; J3360; J7030

== ENCOUNTER → 2023-10-29 | Emergency (ER) | payer SELFPAY ==
[~2023-10-29] MED LIST changes: -DIAZEPAM 10 MG/2 ML INJ SYRINGE ONE; +HYDROCODONE/APAP 10/325 TAB ONE; -HYDROCODONE/APAP 5/325 MG TAB ONE; -MORPHINE 4 MG/ML SYR ONE; -NA CHLORIDE 0.9% 1,000 ML ONE; -ONDANSETRON 4 MG/2 ML VIAL ONE; +dexAMETHasone 10 MG/ML VIAL ONE
--- OUTSIDE RECORDS SUMMARY | 2023-10-29 09:59 | XMS REPORT | Continuity of Care Document ---
Author Name Unknown Address [address] [facility] [address] [place] [address] [facility] thconnect Address [address] [facility] [place] [address] Care Team Providers Care Supervisor Locomotive Name Role Phone Blanco Vázquez MD Primary Care Physician Doctor Unassigned, [place] Attending Clinician U casper Vázquez MD, Blanco Jackman Attending Clinician + [phone] BLANCO VÁZQUEZ Attending Clinician Ludin Avila MD, Victoria Ku Attending Clinician FRANKIE GALVAN Attending Clinician Unavail able FRANKIE GALVAN Attending Clinician Unavail able Khurram Mar Attending Clinician [phone] KHURRAM DISLA Attending Clinician Unavailable CHANDLER BROWER Attending Clinician UnavailMARYLOU Cunningham Attending Clinician Unavail able MARYLOU FUNEZ Attending Clinician Unavail able Ronit RN, Marina Montoya Attending Clinician Unavailab solomon Funez MD, Marylou Webster Attending Clinician Only, Ang Db Test Attending Clinician UnavailOnelia Dozier Attending Clinician [phone] DANILE ASHER Attending Clinician UnavailEmi Hampton PT Attending Clinician UnavailMeño Membreno Attending Clinician [phone] MEÑO CAPELLAN Attending Clinician Unavailable Cowart PAC, Zuleika S Attending Clinician [phone] Randa Erazo Attending Clinician + [phone] Rupa Hung Attending Clinician [phone] RUPA GRAMAJO Attending Clinician Unavailable Frankie Galvan MD Attending Clinician +- [phone] Darlin Munoz DO Attending Clinician [phone] Herson Douglas MD Attending Clinician [phone] Liam CORTES, Daisha Sanderson Attending Clinician [phone] Anh ANTHONY, Angela Funk Attending Clinician [phone] MEÑO CAPELLAN Admitting Clinician Unavailable Herson Douglas MD Admitting Clinician [phone] Payers Payer Name Policy Type Policy Number Effective Date Expirati on Date Source [facility] [id number] 2017 00:00:00 Problems Condition Name Condition Details Condition Category Status Onset Date Resolution Date Last Treatment Date Treating Clinician Comments Source Seizure disorder Seizure disorder Disease Active 04-14 00:00: 00 [facility] Gastroesop hageal reflux disease without esophagiti s Gastroesop hageal reflux disease without esophagiti s Disease Active 04-14 00:00: 00 [facility] Essential hypertensi on Essential hypertensi on Disease Active 2019-09 00:00: 00 [facility] DARREN (acute kidney injury) DARREN (acute kidney injury) Disease Active 2019-09 00:00: 00 [facility] Elevated troponin Elevated troponin Disease Active 2019-09 00:00: 00 [facility] Elevated troponin Elevated troponin Disease Active 2019-09 00:00: 00 [facility] Allergies, Adverse Reactions, Alerts Allergy Name Allergy Type Status Severity Reaction(s) Onset Date Inactive Date Treating Clinician Comments Source NO KNOWN ALLERGIE S Drug Class Active [facility] Social History Social Habit Start Date Stop Date Quantity Comments Source Gender identity [facility] 2023-10-11 00:00:00 2023-10-11 00:00:00 Current drinker of alcohol (finding) [facility] History of Social function 2023-05-24 00:00:00 2023-05-24 00:00:00 [facility] Exposure to SARS-CoV-2 (event) 2022-04-04 00:00:00 2022-04-14 13:54:00 Not sure [facility] Tobacco use and exposure 2022-04-14 00:00:00 2022-04-14 00:00:00 Smokeless tobacco non-user [facility] History SDOH Food Scarcity 2020-07-09 00:00:00 2020-07-09 00:00:00 1 [facility] History SDOH Transport Med 2020-07-09 00:00:00 2020-07-09 00:00:00 2 [facility] History SDOH Transport Non-Med 2020-07-09 00:00:00 2020-07-09 00:00:00 2 [facility] Education - What is the highest level of school you have completed or the highest degree you have received? 2020-07-09 00:00:00 2020-07-09 00:00:00 High school graduate [facility] History SDOH Financial 2020-07-09 00:00:00 2020-07-09 00:00:00 3 [facility] History SDOH Food Worry 2020-07-09 00:00:00 2020-07-09 00:00:00 1 [facility] Sex Assigned At 1965 00:00:00 1965 00:00:00 [facility] Smoking Status Start Date Stop Date Source Tobacco smoking consumption unknown [facility] Never smoked tobacco [facility] Medications Ordered Medication Name Filled Medication Name Start Date Stop Date Current Medication? Ordering Clinician Indication Dosage Frequency Signature (SIG) Comments Components Source gabapentin 100 mg capsule 10-11 16:02: 36 10-11 00:00 :00 No 100mg Take 1 capsule by mouth in the morning and 1 capsule at noon and 1 capsule in the evening. [facility] gabapentin 100 mg capsule 10-11 16:02: 36 10-11 00:00 :00 No 100mg Take 1 capsule by mouth in the morning and 1 capsule at noon and 1 capsule in the evening. [facility] diclofenac 75 mg EC tablet 10-11 15:55: 12 Yes 75mg Take 1 tablet by mouth in the morning and 1 tablet at noon and 1 tablet in the evening. Take with meals. [facility] diclofenac 75 mg EC tablet 10-11 15:55: 12 Yes 75mg Take 1 tablet by mouth in the morning and 1 tablet at noon and 1 tablet in the evening. Take with meals. [facility] diclofenac 75 mg EC tablet 10-11 15:55: 12 Yes 75mg Take 1 tablet by mouth in the morning and 1 tablet at noon and 1 tablet in the evening. Take with meals. [facility] methylPREDN ISolone (MEDROL, CLARY,) 4 mg tablets 10-11 00:00: 00 Yes [id number] 2 Take by mouth SEE-INSTRU CTIONS. follow package directions [facility] gabapentin 300 mg capsule 10-11 00:00: 00 Yes [id number] 2 300mg Take 1 capsule by mouth in the morning and 1 capsule at noon and 1 capsule in the evening. [facility] methylPREDN ISolone (MEDROL, CLARY,) 4 mg tablets 10-11 00:00: 00 Yes [id number] 2 Take by mouth SEE-INSTRU CTIONS. follow package directions [facility] gabapentin 300 mg capsule 2023-- 00:00: 00 Yes [id number] 2 300mg Take 1 capsule by mouth in the morning and 1 capsule at noon and 1 capsule in the evening. [facility] methylPREDN ISolone (MEDROL, CLARY,) 4 mg tablets - 00:00: 00 Yes [id number] 2 Take by mouth SEE-INSTRU CTIONS. follow package directions [facility] gabapentin 300 mg capsule 2023-10-11 00:00: 00 Yes [id number] 2 300mg Take 1 capsule by mouth in the morning and 1 capsule at noon and 1 capsule in the evening. [facility] OMEPRAZOLE 20 mg capsule 2022-09 00:00: 00 Yes [id number] TAKE ONE CAPSULE BY MOUTH EVERY MORNING [facility] OMEPRAZOLE 20 mg capsule 2022-09 00:00: 00 Yes [id number] TAKE ONE CAPSULE BY MOUTH EVERY MORNING [facility] OMEPRAZOLE 20 mg capsule 2022-09 00:00: 00 Yes [id number] TAKE ONE CAPSULE BY MOUTH EVERY MORNING [facility] OMEPRAZOLE 20 mg capsule 2022-09 00:00: 00 Yes [id number] TAKE ONE CAPSULE BY MOUTH EVERY MORNING [facility] azithromyci n 500 mg tablet 2022-09 00:00: 00 Yes [id number] 500mg Take 1 tablet by mouth in the morning. [facility] azithromyci n 500 mg tablet 2022-09 00:00: 00 Yes [id number] 500mg Take 1 tablet by mouth in the morning. [facility] azithromyci n 500 mg tablet 2022-09 00:00: 00 Yes [id number] 500mg Take 1 tablet by mouth in the morning. [facility] azithromyci n 500 mg tablet 2022-09 00:00: 00 Yes [id number] 500mg Take 1 tablet by mouth in the morning. [facility] azithromyci n 500 mg tablet 2022-09 00:00: 00 10-11 00:00 :00 No [id number] 500mg Take 1 tablet by mouth in the morning. [facility] azithromyci n 500 mg tablet 2022-09 00:00: 00 10-11 00:00 :00 No [id number] 500mg Take 1 tablet by mouth in the morning. [facility] methocarbam oL 500 mg tablet 05-24 00:00: 00 Yes [id number] 500mg Take 1 tablet by mouth 4 (four) times daily as needed for Pain (scale 4-6). [facility]- ben[facility]epriL [facility]-20 mg per capsule 0 05-24 00:00: 00 Yes [id number] TAKE ONE CAPSULE BY MOUTH EVERY MORNING [facility] methocarbam oL 500 mg tablet 0 05-24 00:00: 00 Yes [id number] 500mg Take 1 tablet by mouth 4 (four) times daily as needed for Pain (scale 4-6). [facility] amLODIPine- benazepriL 5-20 mg per capsule 0 05-24 00:00: 00 Yes [id number] TAKE ONE CAPSULE BY MOUTH EVERY MORNING [facility] methocarbam oL 500 mg tablet 0 05-24 00:00: 00 Yes [id number] 500mg Take 1 tablet by mouth 4 (four) times daily as needed for Pain (scale 4-6). [facility] am[facility]- benazepriL 5-20 mg per capsule 0 05-24 00:00: 00 Yes [id number] TAKE ONE CAPSULE BY MOUTH EVERY MORNING [facility] methocarbam oL 500 mg tablet 0 05-24 00:00: 00 Yes [id number] 500mg Take 1 tablet by mouth 4 (four) times daily as needed for Pain (scale 4-6). [facility] amLODIPine- benazepriL 5-20 mg per capsule 0 05-24 00:00: 00 Yes [id number] TAKE ONE CAPSULE BY MOUTH EVERY MORNING [facility] 500 mg tablet 2022-0 05-24 00:00: 00 Yes [id number] 500mg Take 1 tablet by mouth 4 (four) times daily as needed for Pain (scale 4-6). [facility] am[facility]- benazepriL 5-20 mg per capsule 2022-0 05-24 00:00: 00 Yes [id number] TAKE ONE CAPSULE BY MOUTH EVERY MORNING [facility] methocarbam oL 500 mg tablet 2022-0 05-24 00:00: 00 Yes [id number] 500mg Take 1 tablet by mouth 4 (four) times daily as needed for Pain (scale 4-6). [facility] amLOD[facility]- benazepriL 5-20 mg per capsule 0 05-24 00:00: 00 Yes [id number] TAKE ONE CAPSULE BY MOUTH EVERY MORNING [facility] amLODIPine- benazepriL 5-20 mg per capsule 0 05-24 00:00: 00 Yes [id number] TAKE ONE CAPSULE BY MOUTH EVERY MORNING [facility] amLODIPine- benazepriL 5-20 mg per capsule 0 05-24 00:00: 00 Yes [id number] TAKE ONE CAPSULE BY MOUTH EVERY MORNING [facility] amLODIPine- benazepriL 5-20 mg per capsule 05-24 00:00: 00 Yes [id number] TAKE ONE CAPSULE BY MOUTH EVERY MORNING [facility] methocarbam oL 500 mg tablet 05-24 00:00: 00 10-11 00:00 :00 No [id number] 500mg Take 1 tablet by mouth 4 (four) times daily as needed for Pain (scale 4-6). [facility] methocarbam oL 500 mg tablet 05-24 00:00: 00 10-11 00:00 :00 No [id number] 500mg Take 1 tablet by mouth 4 (four) times daily as needed for Pain (scale 4-6). [facility] omeprazole 20 mg capsule 05-12 00:00: 00 Yes [id number] 20mg Take 1 capsule by mouth in the morning. [facility] omeprazole 20 mg capsule 0 05-12 00:00: 00 Yes [id number] 20mg Take 1 capsule by mouth in the morning. [facility] omeprazole 20 mg capsule 2022-0 05-12 00:00: 00 Yes [id number] 20mg Take 1 capsule by mouth in the morning. [facility] omeprazole 20 mg capsule 0 05-12 00:00: 00 Yes [id number] 20mg Take 1 capsule by mouth in the morning. [facility] omeprazole 20 mg capsule 2022-0 05-12 00:00: 00 Yes [id number] 20mg Take 1 capsule by mouth in the morning. [facility] omeprazole 20 mg capsule 2022-0 05-12 00:00: 00 Yes [id number] 20mg Take 1 capsule by mouth in the morning. [facility] omeprazole 20 mg capsule 2022-0 05-12 00:00: 00 Yes [id number] 20mg Take 1 capsule by mouth in the morning. [facility] omeprazole 20 mg capsule 2022-0 05-12 00:00: 00 08-09 00:00 :00 No [id number] 20mg Take 1 capsule by mouth in the morning. [facility] amLODIPine- benazepriL 5-20 mg per capsule 0 05-02 00:00: 00 Yes [id number] TAKE ONE CAPSULE BY MOUTH EVERY MORNING [facility] amLODIPine- benazepriL 5-20 mg per capsule 2022-0 05-02 00:00: 00 Yes [id number] TAKE ONE CAPSULE BY MOUTH EVERY MORNING [facility] amLODIPine- benazepriL 5-20 mg per capsule 0 05-02 00:00: 00 Yes [id number] TAKE ONE CAPSULE BY MOUTH EVERY MORNING [facility] amLODIPine- benazepriL 5-20 mg per capsule 0 05-02 00:00: 00 05-24 00:00 :00 No [id number] TAKE ONE CAPSULE BY MOUTH EVERY MORNING [facility] amLODIPine- benazepriL 5-20 mg per capsule 2022-0 05-02 00:00: 00 05-24 00:00 :00 No [id number] TAKE ONE CAPSULE BY MOUTH EVERY MORNING [facility] levETIRAcet am 1,000 mg tablet 0 04-26 00:00: 00 Yes [id number] 1000mg Take 1 tablet by mouth in the morning and 1 tablet in the evening. [facility] levETIRAcet am 1,000 mg tablet 2022-0 04-26 00:00: 00 Yes [id number] 1000mg Take 1 tablet by mouth in the morning and 1 tablet in the evening. [facility] levETIRAcet am 1,000 mg tablet 2022-0 04-26 00:00: 00 Yes [id number] 1000mg Take 1 tablet by mouth in the morning and 1 tablet in the evening. [facility] levETIRAcet am 1,000 mg tablet 3-0 8 00:00: 00 Yes [id number] 1000mg Take 1 tablet by mouth in the morning and 1 tablet in the evening. [facility] levETIRAcet am 1,000 mg tablet 3-0 8 00:00: 00 Yes [id number] 1000mg Take 1 tablet by mouth in the morning and 1 tablet in the evening. [facility] levETIRAcet am 1,000 mg tablet 3-0 8 00:00: 00 Yes [id number] 1000mg Take 1 tablet by mouth in the morning and 1 tablet in the evening. [facility] levETIRAcet am 1,000 mg tablet 3-0 8 00:00: 00 Yes [id number] 1000mg Take 1 tablet by mouth in the morning and 1 tablet in the evening. [facility] levETIRAcet am 1,000 mg tablet 3-0 8 00:00: 00 Yes [id number] 1000mg Take 1 tablet by mouth in the morning and 1 tablet in the evening. [facility] levETIRAcet am 1,000 mg tablet 3-0 8 00:00: 00 Yes [id number] 1000mg Take 1 tablet by mouth in the morning and 1 tablet in the evening. [facility] levETIRAcet am 1,000 mg tablet 3-0 8 00:00: 00 Yes [id number] 1000mg Take 1 tablet by mouth in the morning and 1 tablet in the evening. [facility] levETIRAcet am 1,000 mg tablet 3-0 8 00:00: 00 Yes [id number] 1000mg Take 1 tablet by mouth in the morning and 1 tablet in the evening. [facility] levETIRAcet am 1,000 mg tablet 3-0 8 00:00: 00 Yes [id number] 1000mg Take 1 tablet by mouth in the morning and 1 tablet in the evening. [facility] levETIRAcet am 1,000 mg tablet 0 04-26 00:00: 00 Yes [id number] 1000mg Take 1 tablet by mouth in the morning and 1 tablet in the evening. [facility] levETIRAcet am 1,000 mg tablet 0 04-26 00:00: 00 Yes [id number] 1000mg Take 1 tablet by mouth in the morning and 1 tablet in the evening. [facility] AMLODIPINE- BENAZEPRIL 5-20 mg per capsule 0 03-02 00:00: 00 Yes [id number] TAKE ONE CAPSULE BY MOUTH EVERY MORNING [facility] AMLODIPINE- BENAZEPRIL 5-20 mg per capsule 0 03-02 00:00: 00 Yes [id number] TAKE ONE CAPSULE BY MOUTH EVERY MORNING [facility] AMLODIPINE- BENAZEPRIL 5-20 mg per capsule 0 03-02 00:00: 00 Yes [id number] TAKE ONE CAPSULE BY MOUTH EVERY MORNING [facility] AMLODIPINE- BENAZEPRIL 5-20 mg per capsule 0 03-02 00:00: 00 05-02 00:00 :00 No [id number] TAKE ONE CAPSULE BY MOUTH EVERY MORNING [facility] AMLODIPINE- BENAZEPRIL 5-20 mg per capsule 0 03-02 00:00: 00 05-02 00:00 :00 No [id number] TAKE ONE CAPSULE BY MOUTH EVERY MORNING [facility] amLODIPine- benazepriL 5-20 mg per capsule 0 30 00:00: 00 Yes [id number] TAKE ONE CAPSULE BY MOUTH EVERY MORNING [facility] amLODIPine- benazepriL 5-20 mg per capsule 0 530 00:00: 00 03-02 00:00 :00 No [id number] TAKE ONE CAPSULE BY MOUTH EVERY MORNING [facility] AMLODIPINE- BENAZEPRIL 5-20 mg per capsule 0 12-29 00:00: 00 Yes [id number] TAKE ONE CAPSULE BY MOUTH EVERY MORNING [facility] AMLODIPINE- BENAZEPRIL 5-20 mg per capsule 0 12-29 00:00: 00 02-01 00:00 :00 No [id number] TAKE ONE CAPSULE BY MOUTH EVERY MORNING [facility] AMLODIPINE- BENAZEPRIL 5-20 mg per capsule 0 3- 00:00: 00 Yes [id number] TAKE ONE CAPSULE BY MOUTH EVERY MORNING [facility] AMLODIPINE- BENAZEPRIL 5-20 mg per capsule 0 3- 00:00: 00 12-29 00:00 :00 No [id number] TAKE ONE CAPSULE BY MOUTH EVERY MORNING [facility] amLODIPine- benazepriL 5-20 mg per capsule 0 2- 00:00: 00 Yes [id number] 1{capsu le} Take 1 capsule by mouth in the morning. [facility] amLODIPine- benazepriL 5-20 mg per capsule 0 2- 00:00: 00 11-25 00:00 :00 No [id number] 1{capsu le} Take 1 capsule by mouth in the morning. [facility] levETIRAcet am 1,000 mg tablet 2021-0 8-10 00:00: 00 Yes [id number] 1000mg Take 1 tablet by mouth in the morning and 1 tablet in the evening. [facility] omeprazole 20 mg capsule 2021-0 8-10 00:00: 00 Yes [id number] 20mg Take 1 capsule by mouth in the morning. [facility] levETIRAcet am 1,000 mg tablet 2-0 8-10 00:00: 00 Yes [id number] 1000mg Take 1 tablet by mouth in the morning and 1 tablet in the evening. [facility] omeprazole 20 mg capsule 2-0 8-10 00:00: 00 Yes [id number] 20mg Take 1 capsule by mouth in the morning. [facility] levETIRAcet am 1,000 mg tablet 2-0 8-10 00:00: 00 Yes [id number] 1000mg Take 1 tablet by mouth in the morning and 1 tablet in the evening. [facility] omeprazole 20 mg capsule 2-0 8-10 00:00: 00 Yes [id number] 20mg Take 1 capsule by mouth in the morning. [facility] omeprazole 20 mg capsule 2-0 8-10 00:00: 00 Yes [id number] 20mg Take 1 capsule by mouth in the morning. [facility] omeprazole 20 mg capsule 2021-0 8-10 00:00: 00 Yes [id number] 20mg Take 1 capsule by mouth in the morning. [facility] omeprazole 20 mg capsule 2-0 8-10 00:00: 00 Yes [id number] 20mg Take 1 capsule by mouth in the morning. [facility] levETIRAcet am 1,000 mg tablet 2021-0 8-10 00:00: 00 Yes [id number] 1000mg Take 1 tablet by mouth in the morning and 1 tablet in the evening. [facility] omeprazole 20 mg capsule 2021-0 8-10 00:00: 00 Yes [id number] 20mg Take 1 capsule by mouth in the morning. [facility] amLODIPine- benazepriL 5-20 mg per capsule 2021-0 8-10 00:00: 00 Yes [id number] 1{capsu le} Take 1 capsule by mouth in the morning. [facility] levETIRAcet am 1,000 mg tablet 2021-0 8-10 00:00: 00 Yes [id number] 1000mg Take 1 tablet by mouth in the morning and 1 tablet in the evening. [facility] omeprazole 20 mg capsule 2-0 8-10 00:00: 00 Yes [id number] 20mg Take 1 capsule by mouth in the morning. [facility] levETIRAcet am 1,000 mg tablet 2-0 8-10 00:00: 00 Yes [id number] 1000mg Take 1 tablet by mouth in the morning and 1 tablet in the evening. [facility] omeprazole 20 mg capsule 2-0 8-10 00:00: 00 Yes [id number] 20mg Take 1 capsule by mouth in the morning. [facility] omeprazole 20 mg capsule 2-0 8-10 00:00: 00 05-12 00:00 :00 No [id number] 20mg Take 1 capsule by mouth in the morning. [facility] omeprazole 20 mg capsule 8-10 00:00: 00 05-12 00:00 :00 No [id number] 20mg Take 1 capsule by mouth in the morning. [facility] levETIRAcet am 1,000 mg tablet 8-10 00:00: 00 04-26 00:00 :00 No [id number] 1000mg Take 1 tablet by mouth in the morning and 1 tablet in the evening. [facility] amLODIPine- benazepriL 5-20 mg per capsule 8-10 00:00: 00 10-27 00:00 :00 No [id number] 1{ameliau le} Take 1 capsule by mouth in the morning. [facility] AMLODIPINE- BENAZEPRIL 5-20 mg per capsule 5-24 00:00: 00 04-14 00:00 :00 No [id number] TAKE ONE CAPSULE BY MOUTH DAILY [facility] meloxicam 15 mg tablet 0 7-20 00:00: 00 Yes [id number] 15mg Take 1 tablet by mouth daily. [facility] meloxicam 15 mg tablet 0 7-20 00:00: 00 Yes [id number] 15mg Take 1 tablet by mouth daily. [facility] meloxicam 15 mg tablet 0 7-20 00:00: 00 Yes [id number] 15mg Take 1 tablet by mouth daily. [facility] meloxicam 15 mg tablet 0 7-20 00:00: 00 Yes [id number] 15mg Take 1 tablet by mouth daily. [facility] meloxicam 15 mg tablet 2020-0 7-20 00:00: 00 Yes [id number] 15mg Take 1 tablet by mouth daily. [facility] meloxicam 15 mg tablet 0 7-20 00:00: 00 Yes [id number] 15mg Take 1 tablet by mouth daily. [facility] meloxicam 15 mg tablet 2020-0 7-20 00:00: 00 Yes [id number] 15mg Take 1 tablet by mouth daily. [facility] meloxicam 15 mg tablet 0 20 00:00: 00 Yes [id number] 15mg Take 1 tablet by mouth daily. [facility] meloxicam 15 mg tablet 03-24 00:00: 00 Yes [id number] 15mg Take 1 tablet by mouth daily. [facility] meloxicam 15 mg tablet 0 03-24 00:00: 00 Yes [id number] 15mg Take 1 tablet by mouth daily. [facility] meloxicam 15 mg tablet 03-24 00:00: 00 Yes [id number] 15mg Take 1 tablet by mouth daily. [facility] meloxicam 15 mg tablet 03-24 00:00: 00 05-24 00:00 :00 No [id number] 15mg Take 1 tablet by mouth daily. [facility] meloxicam 15 mg tablet 03-24 00:00: 00 05-24 00:00 :00 No [id number] 15mg Take 1 tablet by mouth daily. [facility] meloxicam 15 mg tablet 03-24 00:00: 00 05-24 00:00 :00 No [id number] 15mg Take 1 tablet by mouth daily. [facility] methocarbam oL 500 mg tablet 0 04 00:00: 00 Yes [id number] 500mg Take 1 tablet by mouth 4 (four) times daily as needed for Pain (scale 4-6). [facility] methocarbam oL 500 mg tablet 0 -04 00:00: 00 Yes [id number] 500mg Take 1 tablet by mouth 4 (four) times daily as needed for Pain (scale 4-6). [facility] methocarbam oL 500 mg tablet 0 5-04 00:00: 00 Yes [id number] 500mg Take 1 tablet by mouth 4 (four) times daily as needed for Pain (scale 4-6). [facility] methocarbam oL 500 mg tablet 2020-0 5-04 00:00: 00 Yes [id number] 500mg Take 1 tablet by mouth 4 (four) times daily as needed for Pain (scale 4-6). [facility] methocarbam oL 500 mg tablet 2020-0 5-04 00:00: 00 Yes [id number] 500mg Take 1 tablet by mouth 4 (four) times daily as needed for Pain (scale 4-6). [facility] methocarbam oL 500 mg tablet 2020-0 5-04 00:00: 00 Yes [id number] 500mg Take 1 tablet by mouth 4 (four) times daily as needed for Pain (scale 4-6). [facility] methocarbam oL 500 mg tablet 2020-0 5-04 00:00: 00 Yes [id number] 500mg Take 1 tablet by mouth 4 (four) times daily as needed for Pain (scale 4-6). [facility] methocarbam oL 500 mg tablet 2020-0 5-04 00:00: 00 Yes [id number] 500mg Take 1 tablet by mouth 4 (four) times daily as needed for Pain (scale 4-6). [facility] methocarbam oL 500 mg tablet 2020-0 5-04 00:00: 00 Yes [id number] 500mg Take 1 tablet by mouth 4 (four) times daily as needed for Pain (scale 4-6). [facility] methocarbam oL 500 mg tablet 2020-0 5-04 00:00: 00 Yes [id number] 500mg Take 1 tablet by mouth 4 (four) times daily as needed for Pain (scale 4-6). [facility] methocarbam oL 500 mg tablet 2020-0 5-04 00:00: 00 Yes [id number] 500mg Take 1 tablet by mouth 4 (four) times daily as needed for Pain (scale 4-6). [facility] methocarbam oL 500 mg tablet 2020-0 5-04 00:00: 00 05-24 00:00 :00 No [id number] 500mg Take 1 tablet by mouth 4 (four) times daily as needed for Pain (scale 4-6). [facility] methocarbam oL 500 mg tablet -04 00:00: 00 05-24 00:00 :00 No [id number] 500mg Take 1 tablet by mouth 4 (four) times daily as needed for Pain (scale 4-6). [facility] methocarbam oL 500 mg tablet 504 00:00: 00 05-24 00:00 :00 No [id number] 500mg Take 1 tablet by mouth 4 (four) times daily as needed for Pain (scale 4-6). [facility] lidocaine 5 % (700 mg/patch) patch 16 00:00: 00 Yes [id number] Apply 1-2 patches to the area and leave in place for up to 12 hours in a day. Do not reapply patches until the next day. [facility] meloxicam 15 mg TbDL 16 00:00: 00 Yes [id number] 1{tbl} Take 1 tablet by mouth daily. [facility] lidocaine 5 % (700 mg/patch) patch 12-19 00:00: 00 Yes [id number] Apply 1-2 patches to the area and leave in place for up to 12 hours in a day. Do not reapply patches until the next day. [facility] meloxicam 15 mg TbDL 16 00:00: 00 Yes [id number] 1{tbl} Take 1 tablet by mouth daily. [facility] lidocaine 5 % (700 mg/patch) patch 16 00:00: 00 Yes [id number] Apply 1-2 patches to the area and leave in place for up to 12 hours in a day. Do not reapply patches until the next day. [facility] meloxicam 15 mg TbDL 16 00:00: 00 Yes [id number] 1{tbl} Take 1 tablet by mouth daily. [facility] lidocaine 5 % (700 mg/patch) patch 16 00:00: 00 Yes [id number] Apply 1-2 patches to the area and leave in place for up to 12 hours in a day. Do not reapply patches until the next day. [facility] meloxicam 15 mg TbDL 16 00:00: 00 Yes [id number] 1{tbl} Take 1 tablet by mouth daily. [facility] lidocaine 5 % (700 mg/patch) patch 12-19 00:00: 00 Yes [id number] Apply 1-2 patches to the area and leave in place for up to 12 hours in a day. Do not reapply patches until the next day. [facility] meloxicam 15 mg TbDL 12-19 00:00: 00 Yes [id number] 1{tbl} Take 1 tablet by mouth daily. [facility] % (700 mg/patch) patch 12-19 00:00: 00 Yes [id number] Apply 1-2 patches to the area and leave in place for up to 12 hours in a day. Do not reapply patches until the next day. [facility] mg TbDL 12-19 00:00: 00 Yes [id number] 1{tbl} Take 1 tablet by mouth daily. [facility] lidocaine 5 % (700 mg/patch) patch 12-19 00:00: 00 Yes [id number] Apply 1-2 patches to the area and leave in place for up to 12 hours in a day. Do not reapply patches until the next day. [facility] meloxicam 15 mg TbDL 12-19 00:00: 00 Yes [id number] 1{tbl} Take 1 tablet by mouth daily. [facility] lidocaine 5 % (700 mg/patch) patch 12-19 00:00: 00 Yes [id number] Apply 1-2 patches to the area and leave in place for up to 12 hours in a day. Do not reapply patches until the next day. [facility]am [facility] mg TbDL 12-19 00:00: 00 Yes [id number] 1{tbl} Take 1 tablet by mouth daily. [facility]aine 5 % (700 mg/patch) patch 2021-0 4-16 00:00: 00 Yes [id number] Apply 1-2 patches to the area and leave in place for up to 12 hours in a day. Do not reapply patches until the next day. [facility] meloxicam 15 mg TbDL 0 16 00:00: 00 Yes [id number] 1{tbl} Take 1 tablet by mouth daily. [facility] lidocaine 5 % (700 mg/patch) patch 16 00:00: 00 Yes [id number] Apply 1-2 patches to the area and leave in place for up to 12 hours in a day. Do not reapply patches until the next day. [facility] meloxicam 15 mg TbDL 16 00:00: 00 Yes [id number] 1{tbl} Take 1 tablet by mouth daily. [facility]aine 5 % (700 mg/patch) patch 16 00:00: 00 Yes [id number] Apply 1-2 patches to the area and leave in place for up to 12 hours in a day. Do not reapply patches until the next day. [facility] meloxicam 15 mg TbDL 16 00:00: 00 Yes [id number] 1{tbl} Take 1 tablet by mouth daily. [facility]aine 5 % (700 mg/patch) patch 16 00:00: 00 05-24 00:00 :00 No [id number] Apply 1-2 patches to the area and leave in place for up to 12 hours in a day. Do not reapply patches until the next day. [facility] meloxicam 15 mg TbDL 2020-0 16 00:00: 00 05-24 00:00 :00 No [id number] 1{tbl} Take 1 tablet by mouth daily. [facility] lidocaine 5 % (700 mg/patch) patch 2020-16 00:00: 00 05-24 00:00 :00 No [id number] Apply 1-2 patches to the area and leave in place for up to 12 hours in a day. Do not reapply patches until the next day. [facility] meloxicam 15 mg TbDL 2020- 4-16 00:00: 00 05-24 00:00 :00 No [id number] 1{tbl} Take 1 tablet by mouth daily. [facility] lidocaine 5 % (700 mg/patch) patch 416 00:00: 00 05-24 00:00 :00 No [id number] Apply 1-2 patches to the area and leave in place for up to 12 hours in a day. Do not reapply patches until the next day. [facility] meloxicam 15 mg TbDL 16 00:00: 00 05-24 00:00 :00 No [id number] 1{tbl} Take 1 tablet by mouth daily. [facility] methylPREDN ISolone (MEDROL, CLARY,) 4 mg tablets 4-14 00:00: 00 Yes [id number] 84mg Take 21 tablets by mouth SEE-INSTRU CTIONS. follow package directions [facility] methylPREDN ISolone (MEDROL, CLARY,) 4 mg tablets 2020- 4-14 00:00: 00 Yes [id number] 84mg Take 21 tablets by mouth SEE-INSTRU CTIONS. follow package directions [facility] methylPREDN ISolone (MEDROL, CLARY,) 4 mg tablets 2020-0 4-14 00:00: 00 Yes [id number] 84mg Take 21 tablets by mouth SEE-INSTRU CTIONS. follow package directions [facility] methylPREDN ISolone (MEDROL, CLARY,) 4 mg tablets 2020-0 4-14 00:00: 00 Yes [id number] 84mg Take 21 tablets by mouth SEE-INSTRU CTIONS. follow package directions [facility] methylPREDN ISolone (MEDROL, CLARY,) 4 mg tablets 2020-0 4-14 00:00: 00 Yes [id number] 84mg Take 21 tablets by mouth SEE-INSTRU CTIONS. follow package directions [facility] methylPREDN ISolone (MEDROL, CLARY,) 4 mg tablets 2021-0 4-14 00:00: 00 Yes [id number] 84mg Take 21 tablets by mouth SEE-INSTRU CTIONS. follow package directions [facility] methylPREDN ISolone (MEDROL, CLARY,) 4 mg tablets 0 4-14 00:00: 00 Yes [id number] 84mg Take 21 tablets by mouth SEE-INSTRU CTIONS. follow package directions [facility] methylPREDN ISolone (MEDROL, CLARY,) 4 mg tablets 0 4-14 00:00: 00 Yes [id number] 84mg Take 21 tablets by mouth SEE-INSTRU CTIONS. follow package directions [facility] methylPREDN ISolone (MEDROL, CLARY,) 4 mg tablets 0 4-14 00:00: 00 Yes [id number] 84mg Take 21 tablets by mouth SEE-INSTRU CTIONS. follow package directions [facility] methylPREDN ISolone (MEDROL, CLARY,) 4 mg tablets 4-14 00:00: 00 Yes [id number] 84mg Take 21 tablets by mouth SEE-INSTRU CTIONS. follow package directions [facility] methylPREDN ISolone (MEDROL, CLARY,) 4 mg tablets 4-14 00:00: 00 Yes [id number] 84mg Take 21 tablets by mouth SEE-INSTRU CTIONS. follow package directions [facility] methylPREDN ISolone (MEDROL, CLARY,) 4 mg tablets 4-14 00:00: 00 05-24 00:00 :00 No [id number] 84mg Take 21 tablets by mouth SEE-INSTRU CTIONS. follow package directions [facility] methylPREDN ISolone (MEDROL, CLARY,) 4 mg tablets 4-14 00:00: 00 05-24 00:00 :00 No [id number] 84mg Take 21 tablets by mouth SEE-INSTRU CTIONS. follow package directions [facility] methylPREDN ISolone (MEDROL, CLARY,) 4 mg tablets 0 4-14 00:00: 00 05-24 00:00 :00 No [id number] 84mg Take 21 tablets by mouth SEE-INSTRU CTIONS. follow package directions [facility] levETIRAcet am 1,000 mg tablet 10-15 00:00: 00 04-14 00:00 :00 No [id number] 1000mg Take 1 tablet by mouth 2 (two) times daily. [facility] omeprazole 20 mg capsule 10-15 00:00: 00 04-14 00:00 :00 No [id number] 20mg Take 1 capsule by mouth daily. [facility] albuterol 90 mcg/actuati on inhaler 04-27 00:00: 00 Yes [id number] 2{puff} Inhale 2 Puffs every 4 (four) hours as needed for Wheezing or Shortness of Breath. [facility] albuterol 90 mcg/actuati on inhaler 04-27 00:00: 00 Yes [id number] 2{puff} Inhale 2 Puffs every 4 (four) hours as needed for Wheezing or Shortness of Breath. [facility] albuterol 90 mcg/actuati on inhaler 04-27 00:00: 00 Yes [id number] 2{puff} Inhale 2 Puffs every 4 (four) hours as needed for Wheezing or Shortness of Breath. [facility] albuterol 90 mcg/actuati on inhaler 04-27 00:00: 00 Yes [id number] 2{puff} Inhale 2 Puffs every 4 (four) hours as needed for Wheezing or Shortness of Breath. [facility] albuterol 90 mcg/actuati on inhaler 04-27 00:00: 00 Yes [id number] 2{puff} Inhale 2 Puffs every 4 (four) hours as needed for Wheezing or Shortness of Breath. [facility] albuterol 90 mcg/actuati on inhaler 04-27 00:00: 00 Yes [id number] 2{puff} Inhale 2 Puffs every 4 (four) hours as needed for Wheezing or Shortness of Breath. [facility] albuterol 90 mcg/actuati on inhaler 04-27 00:00: 00 Yes [id number] 2{puff} Inhale 2 Puffs every 4 (four) hours as needed for Wheezing or Shortness of Breath. [facility] albuterol 90 mcg/actuati on inhaler 04-27 00:00: 00 Yes [id number] 2{puff} Inhale 2 Puffs every 4 (four) hours as needed for Wheezing or Shortness of Breath. [facility] albuterol 90 mcg/actuati on inhaler 04-27 00:00: 00 Yes [id number] 2{puff} Inhale 2 Puffs every 4 (four) hours as needed for Wheezing or Shortness of Breath. [facility] albuterol 90 mcg/actuati on inhaler 04-27 00:00: 00 Yes [id number] 2{puff} Inhale 2 Puffs every 4 (four) hours as needed for Wheezing or Shortness of Breath. [facility] albuterol 90 mcg/actuati on inhaler 04-27 00:00: 00 Yes [id number] 2{puff} Inhale 2 Puffs every 4 (four) hours as needed for Wheezing or Shortness of Breath. [facility] albuterol 90 mcg/actuati on inhaler 04-27 00:00: 00 05-24 00:00 :00 No [id number] 2{puff} Inhale 2 Puffs every 4 (four) hours as needed for Wheezing or Shortness of Breath. [facility] albuterol 90 mcg/actuati on inhaler 04-27 00:00: 00 05-24 00:00 :00 No [id number] 2{puff} Inhale 2 Puffs every 4 (four) hours as needed for Wheezing or Shortness of Breath. [facility] albuterol 90 mcg/actuati on inhaler 04-27 00:00: 00 05-24 00:00 :00 No [id number] 2{puff} Inhale 2 Puffs every 4 (four) hours as needed for Wheezing or Shortness of Breath. [facility] Immunizations Ordered Immunization Name Filled Immunization Name Date Status Comments Source Influenza Virus Vaccine Quad .5 mL IM 6+ MO 2020-07-10 00:00:00 Completed [facility] Influenza Virus Vaccine Quad .5 mL IM 6+ MO 2020-07-10 00:00:00 Completed [facility] Influenza Virus Vaccine Quad .5 mL IM 6+ MO 2020-07-10 00:00:00 Completed [facility] Influenza Virus Vaccine Quad .5 mL IM 6+ MO 2020-07-10 00:00:00 Completed [facility] Influenza Virus Vaccine Quad .5 mL IM 6+ MO 2020-07-10 00:00:00 Completed [facility] Influenza Virus Vaccine Quad .5 mL IM 6+ MO 2020-07-10 00:00:00 Completed [facility] Influenza Virus Vaccine Quad .5 mL IM 6+ MO (FLUZONE/FLULAVAL/F LUARIX) 2020-07-10 00:00:00 Completed [facility] Influenza Virus Vaccine Quad .5 mL IM 6+ MO (FLUZONE/FLULAVAL/F LUARIX) 2020-07-10 00:00:00 Completed [facility] Influenza Virus Vaccine Quad .5 mL IM 6+ MO (FLUZONE/FLULAVAL/F LUARIX) 2020-07-10 00:00:00 Completed [facility] Influenza Virus Vaccine Quad .5 mL IM 6+ MO (FLUZONE/FLULAVAL/F LUARIX) 2020-07-10 00:00:00 Completed [facility] Influenza Virus Vaccine Quad .5 mL IM 6+ MO 2020-07-10 00:00:00 Completed [facility] Influenza Virus Vaccine Quad .5 mL IM 6+ MO 2020-07-10 00:00:00 Completed [facility] Influenza Virus Vaccine Quad .5 mL IM 6+ MO 2020-07-10 00:00:00 Completed [facility] Influenza Virus Vaccine Quad .5 mL IM 6+ MO (FLUZONE/FLULAVAL/F LUARIX) Unknown Completed [facility] Influenza Virus Vaccine Quad .5 mL IM 6+ MO (FLUZONE/FLULAVAL/F LUARIX) Unknown Completed [facility] Influenza Virus Vaccine Quad .5 mL IM 6+ MO (FLUZONE/FLULAVAL/F LUARIX) Unknown Completed [facility] Influenza Virus Vaccine Quad .5 mL IM 6+ MO (FLUZONE/FLULAVAL/F LUARIX) Unknown Completed [facility] Influenza Virus Vaccine Quad .5 mL IM 6+ MO (FLUZONE/FLULAVAL/F LUARIX) Unknown Completed [facility] Influenza Virus Vaccine Quad .5 mL IM 6+ MO (FLUZONE/FLULAVAL/F LUARIX) Unknown Completed [facility] Influenza Virus Vaccine Quad .5 mL IM 6+ MO (FLUZONE/FLULAVAL/F LUARIX) Unknown Completed [facility] Influenza Virus Vaccine Quad .5 mL IM 6+ MO (FLUZONE/FLULAVAL/F LUARIX) Unknown Completed [facility] Vital Signs Vital Name Observation Time Observation Value Comments S ource Systolic blood pressure 2023-10-11 21:50:00 147 mm[Hg] [facility] Diastolic blood pressure 2023-10-11 21:50:00 89 mm[Hg] [facility] Heart rate 2023-10-11 21:36:00 75 /min Un[facility] Body height 2023-10-11 21:36:00 170.2 cm [facility] Body weight 2023-10-11 21:36:00 76.204 kg [facility] BMI 2023-10-11 21:36:00 26.31 kg/m2 [facility] Systolic blood pressure 2023-07-06 19:19:00 137 mm[Hg] [facility] Diastolic blood pressure 2023-07-06 19:19:00 79 mm[Hg] [facility] Heart rate 2023-07-06 19:19:00 64 /min Un[facility] Body temperature 2023-07-06 19:19:00 37 Nena [facility] Body height 2023-07-06 19:19:00 170.2 cm [facility] Body weight 2023-07-06 19:19:00 73.483 kg [facility] BMI 2023-07-06 19:19:00 25.37 kg/m2 [facility] Systolic blood pressure 2023-05-24 20:19:00 131 mm[Hg] [facility] Diastolic blood pressure 2023-05-24 20:19:00 75 mm[Hg] [facility] Heart rate 2023-05-24 20:19:00 52 /min [facility] Body temperature 2023-05-24 20:19:00 36.78 Nena [facility] Body height 2023-05-24 20:19:00 167.6 cm [facility] Body weight 2023-05-24 20:19:00 77.111 kg [facility] BMI 2023-05-24 20:19:00 27.44 kg/m2 [facility] Systolic blood pressure 2022-04-14 19:12:00 137 mm[Hg] [facility] Diastolic blood pressure 2022-04-14 19:12:00 72 mm[Hg] [facility] Heart rate 2022-04-14 19:12:00 56 /min Unive [facility] Body height 2022-04-14 19:12:00 170.2 cm [facility] Body weight 2022-04-14 19:12:00 78.472 kg [facility] BMI 2022-04-14 19:12:00 27.10 kg/m2 [facility] Oxygen saturation in Arterial blood by Pulse oximetry 2022-04-14 19:12:00 99 /min [facility] Procedures Procedure Date / Time Performed Performing Clinician Source EXTERNAL PROVIDER RECORDS 2023-10-24 06:01:00 Doctor Unassigned, [place] [facility] CONSENT/REFUSAL FOR DIAGNOSIS AND TREATMENT 2023-05-24 20:01:05 Doctor Unassigned, [place] [facility] ASSIGNMENT OF BENEFITS 2023-05-24 20:00:48 Docto r Unassigned, [place] [facility] RADIOLOGY DOCUMENTATION Doct or Unassigned, [place] [facility] Encounters Start Date/Time End Date/Time Encounter Type Admission Type Attending Clinicians Care Facility Care Department Encounter ID Source 2021-07-05 13:21:58 Emergency [facility] [id number] [facility] 2023-10-24 00:00:00 2023-10-24 00:00:00 Orders Only Doctor Unassigned, [place] [facility] 1.2.840.114 350.1.13.10 4.2.7.2.686 [id number] [facility] 2023-10-11 16:00:00 2023-10-11 16:15:00 Office Visit Blanco V[facility]quez [facility] 1.2.840.114 350.1.13.10 4.2.7.2.686 [id number] [facility] 2023-10-11 16:00:00 2023-10-11 16:00:00 Outpatient BLANCO WILKINS [facility] [id number] [facility] 2023-08-08 00:00:00 2023-08-08 00:00:00 Victoria Domingo [facility] 1.2.840.114 350.1.13.10 4.2.7.2.686 [id number] [facility] 2023-07-06 14:30:00 2023-07-06 15:00:00 Office Visit Suzannejaqui Blanco [facility] 1.2.840.114 350.1.13.10 4.2.7.2.686 [id number] [facility] 2023-07-06 14:30:00 2023-07-06 14:30:00 Outpatient BLANCO WILKINS [facility] [id number] [facility] 2023-07-01 12:40:00 2023-07-01 12:40:00 Outpatient FRANKIE CHANDLER HOWARD [facility] [id number] [facility] 2023-05-24 15:30:00 2023-05-24 15:45:00 [facility] 1.84114 350.1.13.10 4.2.7.2.686 [id number] [facility] 2023-05-24 15:30:00 2023-05-24 15:30:00 Outpatient R SUZANNEJAQUIBLANCO [facility] [id number] [facility] 2023-05-24 00:00:00 2023-05-24 00:00:00 Orders Only Doctor Unassigned, [place] [facility] 1.114 350.1.13.10 4.2.7.2.686 [id number] [facility] 2023-05-12 00:00:00 2023-05-12 00:00:00 Refill Blanco Vázquez [facility] JAVON?[facility] 1.84114 350.1.13.10 4.2.7.2.686 [id number] [facility] 2023-05-02 00:00:00 2023-05-02 00:00:00 Refill Blanco Vázquez [facility] JAVON?[facility] 1.84.114 350.1.13.10 4.2.7.2.686 [id number] [facility] 2023-04-29 00:00:00 2023-04-29 00:00:00 Refill Blanco Vázquez [facility] JAVON?[facility] 1.84114 350.1.13.10 4.2.7.2.686 [id number] [facility] 2023-04-26 00:00:00 2023-04-26 00:00:00 Refill Khurram Disla [facility] JAVON?[facility] 1.2.840.114 350.1.13.10 4.2.7.2.686 [id number] [facility] 2023-04-18 00:00:00 2023-04-18 00:00:00 Refill [facility] Dis[facility] 1.2840.114 350.1.13.10 4.2.7.2.686 [id number] [facility] 2023-03-02 00:00:00 2023-03-02 00:00:00 [facility] 1.2840.114 350.1.13.10 4.2.7.2.686 [id number] [facility] 2023-02-01 00:00:00 2023-02-01 00:00:00 [facility] 1.2840.114 350.1.13.10 4.2.7.2.686 [id number] [facility] 2022-12-29 00:00:00 2022-12-29 00:00:00 [facility] 1.2840.114 350.1.13.10 4.2.7.2.686 [id number] [facility] 2022-11-24 00:00:00 2022-11-24 00:00:00 [facility] 1.2840.114 350.1.13.10 4.2.7.2.686 [id number] [facility] 2022-10-27 00:00:00 2022-10-27 00:00:00 [facility] 1.840.114 350.1.13.10 4.2.7.2.686 [id number] [facility] 2022-04-20 07:30:00 2022-04-20 07:30:00 Outpatient R BLANCO VÁZQUEZ [facility] [id number] [facility] 2022-04-14 14:00:00 2022-04-14 14:30:00 Office Visit Serenamonie Khurram [facility] 1.840.114 350.1.13.10 4.2.7.2.686 [id number] [facility] 2022-04-14 14:00:00 2022-04-14 14:00:00 Outpatient R SANTANA KHURRAM [facility] [id number] [facility] 2022-04-14 00:00:00 2022-04-14 00:00:00 Blanco Burr [facility] 1.840.114 350.1.13.10 4.2.7.2.686 [id number] [facility] 2022-04-14 00:00:00 2022-04-14 00:00:00 Orders Only Doctor Unassigned, [place] [facility] 1.840.114 350.1.13.10 4.2.7.2.686 [id number] [facility] 2022-04-13 00:00:00 2022-04-13 00:00:00 Refill Blanco Vázquez [facility] JAVON?[facility] 1.840.114 350.1.13.10 4.2.7.2.686 [id number] [facility] 2022-04-13 00:00:00 2022-04-13 00:00:00 Refill Veselka, [facility] JAVON?[facility] 1.2.840.114 350.1.13.10 4.2.7.2.686 [id number] [facility] 2022-04-12 00:00:00 2022-04-12 00:00:00 RefBlanco [facility]ides [facility] [facility] 1.2840.114 350.1.13.10 4.2.7.2.686 [id number] [facility] 2022-04-09 00:00:00 2022-04-09 00:00:00 Blanco Armijo [facility] JAVON[facility] 1.2.840.114 350.1.13.10 4.2.7.2.686 [id number] [facility] 2022-01-26 00:00:00 2022-01-26 00:00:00 Arielle V[facility]quez [facility]AVON[facility] 1.2840.114 350.1.13.10 4.2.7.2.686 [id number] [facility] 2021-05-26 08:00:00 2021-05-26 08:00:00 Outpatient CHANDLER HANKINS [facility] [id number] [facility] 2021-05-12 13:00:00 2021-05-12 13:00:00 Outpatient MARYLOU ONEIL DENISE [facility] [id number] [facility] 2021-05-08 00:00:00 2021-05-08 00:00:00 Letter (Out) Marina Cottrell [facility] 1.2.840.114 350.1.13.10 4.2.7.2.686 [id number] [facility] 2021-05-06 00:00:00 2021-05-06 00:00:00 Telephone Marylou Funez [facility] 1.114 350.1.13.10 4.2.7.2.686 [id number] [facility] 2021-05-05 16:58:05 2021-05-05 17:08:05 Laboratory Only Only, Ang Db Test Sedrick [facility] Javon[facility] 1.84.114 350.1.13.10 4.2.7.2.686 [id number] [facility] 2021-05-05 16:35:00 2021-05-05 16:35:00 Outpatient R [facility] [id number] [facility] 2021-04-13 08:20:00 2021-04-13 08:20:00 Outpatient R DANIEL ASHER [facility] [id number] [facility] 2021-04-01 08:20:00 2021-04-01 08:20:00 Outpatient MARYLOU ONEIL DENISE [facility] [id number] [facility] 2021-04-01 00:00:00 2021-04-01 00:00:00 Case Management [facility] 1.840.114 350.1.13.10 4.2.7.2.686 [id number] [facility] 2021-03-24 09:28:00 2021-03-24 10:17:31 Office Visit Marylou Funez [facility] 1.114 350.1.13.10 4.2.7.2.686 [id number] [facility] 2021-03-24 09:30:00 2021-03-24 09:30:00 Outpatient MARYLOU ONEIL DENISE [facility] [id number] [facility] 2021-02-18 00:00:00 2021-02-18 00:00:00 Telephone Marylou Funez Eleanor [facility] 1.840.114 350.1.13.10 4.2.7.2.686 [id number] [facility] 2021-02-16 00:00:00 2021-02-16 00:00:00 Telephone Marylou Funez [facility] 1.840.114 350.1.13.10 4.2.7.2.686 [id number] [facility] 2021-02-10 13:46:16 2021-02-10 23:59:00 Hospital Encounter Marylou Funez [facility] 1.840.114 350.1.13.10 4.2.7.2.686 [id number] [facility] 2021-02-10 14:00:00 2021-02-10 14:00:00 Outpatient MARYLOU ONEIL DENISE [facility] [id number] [facility] 2021-02-06 00:00:00 2021-02-06 00:00:00 Telephone Marylou Funez [facility] 1.840.114 350.1.13.10 4.2.7.2.686 [id number] [facility] 2021-01-26 09:20:00 2021-01-26 09:20:00 Outpatient FRANKIE CHANDLER HOWARD [facility] [id number] [facility] 2021-01-20 08:47:22 2021-01-20 09:41:41 Office Visit Marylou Funez [facility] 1..840.114 350.1.13.10 4.2.7.2.686 [id number] [facility] 2021-01-20 09:00:00 2021-01-20 09:00:00 Outpatient MARYLOU ONEIL DENISE [facility] [id number] [facility] 2021-01-20 00:00:00 2021-01-20 00:00:00 Orders Only Doctor Unassigned, [place] [facility] 1.2.840.114 350.1.13.10 4.2.7.2.686 [id number] [facility] 2021-01-12 09:00:00 2021-01-12 09:00:00 Outpatient DANIEL SIMEON [facility] [id number] [facility] 2021-01-06 08:54:52 2021-01-06 09:27:00 Office Visit Meño Capellan [facility] SPECIAL[facility] 1..840.114 350.1.13.10 4.2.7.2.686 [id number] [facility] 2021-01-06 09:00:00 2021-01-06 09:00:00 Outpatient MEÑO DEUTSCH [facility] [id number] [facility] 2021-01-01 18:01:46 2021-01-01 23:59:00 Hospital Encounter Meño Capellan [facility] 1..840.114 350.1.13.10 4.2.7.2.686 [id number] [facility] 2021-01-01 18:01:46 2021-01-01 23:59:00 Outpatient MEÑO DEUTSCH [facility] [id number] [facility] 2021-01-01 00:00:00 2021-01-01 00:00:00 Outpatient MEÑO DEUTSCH [facility] [id number] [facility] 2020-12-23 07:52:36 2020-12-23 08:39:47 Office Visit Meño Capellan [facility] 1.2840.114 350.1.13.10 4.2.7.2.686 [id number] [facility] 2020-12-23 08:00:00 2020-12-23 08:00:00 Outpatient R MEÑO CAPELLAN [facility] [id number] [facility] 2020-12-23 00:00:00 2020-12-23 00:00:00 Letter (Out) Blake Meño [facility] 1.2840.114 350.1.13.10 4.2.7.2.686 [id number] [facility] 2020-12-19 10:17:00 2020-12-19 12:11:00 Emergency Zuleika Cowart [facility] 1.2840.114 350.1.13.10 4.2.7.2.686 [id number] [facility] 2020-12-18 00:00:00 2020-12-18 00:00:00 Telephone Blanco Vázquez [facility] Office Building One 1.2114 350.1.13.10 4.2.7.2.686 [id number] [facility] 2020-12-17 10:45:00 2020-12-17 23:59:00 Hospital Encounter SuzannejaquiBlanco pavithra [facility] 1.2840.114 350.1.13.10 4.2.7.2.686 [id number] [facility] 2020-12-17 10:12:52 2020-12-17 10:27:52 Office Visit EmanialvinBlanco [facility] 1.2.114 350.1.13.10 4.2.7.2.686 [id number] [facility] 2020-12-17 10:15:00 2020-12-17 10:15:00 Outpatient BLANCO WILKINS [facility] [id number] [facility] 2020-10-15 14:16:52 2020-10-15 14:31:52 Office Visit Blanco Vázquez pavithra [facility] Office [facility] One .840.114 350.1.13.10 4.2.7.2.686 [id number] [facility] 2020-10-15 14:15:00 2020-10-15 14:15:00 Outpatient BLANCO WILKINS [facility] [id number] [facility] 2020-09-11 15:50:26 2020-09-11 16:33:14 Urgent Care Randa James Leslie A [facility] .840.114 350.1.13.10 4.2.7.2.686 [id number] [facility] 2020-09-11 15:40:00 2020-09-11 15:40:00 Outpatient RUPA SANTAMARIA [facility] [id number] [facility] 2020-08-26 14:00:00 2020-08-26 14:00:00 Outpatient FRANKIE CHANDLER HOWARD [facility] [id number] [facility] 2020-08-12 16:11:47 2020-08-12 16:26:47 Office Visit Blanco Vázquez [facility] Office Building One .840.114 350.1.13.10 4.2.7.2.686 [id number] [facility] 2020-08-12 16:15:00 2020-08-12 16:15:00 Outpatient BLANCO WILKINS [facility] [id number] [facility] 2020-08-12 10:30:00 2020-08-12 10:30:00 Outpatient BLANCO WILKINS [facility] [id number] [facility] 2020-08-02 00:00:00 2020-08-02 00:00:00 Orders Only Doctor Unassigned, [place] [facility] 1.114 350.1.13.10 4.2.7.2.686 [id number] [facility] 2020-07-28 08:43:04 2020-07-28 09:30:34 Office Visit Frankie Galvan [facility] Building 1.114 350.1.13.10 4.2.7.2.686 [id number] [facility] 2020-07-28 08:40:00 2020-07-28 08:40:00 Outpatient FRANKIE CHANDLER HOWARD [facility] [id number] [facility] 2020-07-15 13:54:22 2020-07-15 14:24:22 Office [facility] 1.114 350.1.13.10 4.2.7.2.686 [id number] [facility] 2020-07-15 14:00:00 2020-07-15 14:00:00 Outpatient BLANCO WILKINS [facility] [id number] [facility] 2020-07-09 07:20:00 2020-07-10 16:20:00 Emergency Darlin Munoz Wei [facility] 1.114 350.1.13.10 4.2.7.2.686 [id number] [facility] 2020-07-09 07:16:00 2020-07-09 07:16:00 Emergency X [facility] ERT [id number] [facility] 2020-07-02 14:39:00 2020-07-02 16:21:00 Emergency Daisha Wheeler [facility] 1.2.840.114 350.1.13.10 4.2.7.2.686 [id number] [facility] 2020-07-02 14:13:00 2020-07-02 14:13:00 Emergency X [facility] ERT [id number] [facility] 2019-04-27 11:02:55 2019-04-27 14:01:00 Emergency Angela Kamara [facility] 1.2.840.114 350.1.13.10 4.2.7.2.686 [id number] 2019-04-27 11:02:55 2019-04-27 14:01:00 Emergency Angela Kamara [facility] 1.2.840.114 350.1.13.10 4.2.7.2.686 [id number] [facility] Orders Only Doctor Unassigned, [place] [facility] 1.2.840.114 350.1.13.10 4.2.7.2.686 [id number] [facility] Notes Date/Time Note Provider Source 2023-05-12 12:28:40 TRULenfjCRT5bcDx/3Lu AtIdobEWXNBFe+Y KoM0XunnRb7KpSIjaQo4y+qR9ai485124-9 07T12:28:40 Images from the original note were not [...] last 12 months To be filled at: [facility] [id number] [address] Recent VisitsDate Type Provider Dept 04/14/22 Office Visit Khurram Disla FNP [facility] Showing recent visits within past 540 days with a meds authorizing provider and meeting all other requirementsFuture AppointmentsDate Type Provider Dept 05/24/23 Appointment Blanco Vázquez MD [facility] Showing future appointments within next 150 days with a meds authorizing provider and meeting all other requirements 96492-0Zvnpsekuy encounter IdnuYO9155-12-51S49:28:50Telephone encounter NoteTXT1.2.840.446789.1.13.104.2.7. 2.845487|[id number] for patient [id number] M Fisher [address] Yz[id number] 3HXPLSZRUUUTHSBPZFTGLXN4063-06-15I2 2:28:501.2.840.586503.1.72.3.15|1.2 .840.116663.1.13.104.2.7.2.727879_1 [id number] Phyllis Garcia [facility] 2023-05-02 10:17:09 5HPW8PQyo+HaySdCHPgk WQk7elLw35uRzop OsTAixBWDgA7Y20Rnh5U0EuPcyyJ93179-1 05-02T10:17:09 Patient is out of medications and is needing refills. He states he has a follow up with Manish in May. 06614-8Uromecxgu encounter DuwkWI8063-34-15N32:18:08Telephone encounter NoteTXT1.2.840.456703.1.13.104.2.7. 2.082090|[id number] for patient qnng52498-5QmoqYJTDHNGJXD[address] Qb[id number] 5CCWFVZRCSIEETNUDICQXAM6761-94-58U3 0:18:081.2.840.407619.1.72.3.15|1.2 .840.893207.1.13.104.2.7.2.727879_1 [id number] [facility] 2023-04-26 10:35:45 XKguF/4BTAJvU4bJ86h5 07rpP0rKzEUo3VO MgvmPz4ZJbBHI6X1cGt6hOcC4qxsF5573-1 04-26T10:35:45 Images from the original note were [...] within 360 days To be filled at: [facility] [id number] [place] [address] Recent VisitsDate Type Provider Dept 04/14/22 Office Visit Khurram Disla FNP [facility] Showing recent visits within past 540 days with a meds authorizing provider and meeting all other requirementsFuture AppointmentsNo visits were found meeting these conditions.Showing future appointments within next 150 days with a meds authorizing provider and meeting all other requirements 37148-9Atoapmkpw encounter LbgnXH8401-95-57K96:35:54Telephone encounter NoteTXT1.2.840.544774.1.13.104.2.7. 2.770310|[id number] for patient [id number] M Fisher [address] Im[id number] 6BYHIBECKWHSCPDZYUKIRXT8051-32-70Y3 0:35:541.2.840.318556.1.72.3.15|1.2 .840.849529.1.13.104.2.7.2.727879_1 [id number] Phyllis Garcia [facility]"
[2023-10-29 11:35] LABS: Specific Gravity 1.016 (1.005-1.030); Urine Bacteria None Seen /HPF (<20); Urine Bilirubin NEGATIVE (Negative); Urine Blood 1+ (Negative); Urine Clarity Clear (Clear); Urine Color Light-Yellow (Yellow); Urine Glucose NEGATIVE (Negative); Urine Protein NEGATIVE (Negative); Urine Urobilinogen Normal (Normal)
--- NOTE | 2023-10-29 11:35 | RAD REPORT ---
EXAM DESCRIPTION: CT - Spine Lumbar Wo Con - 10/29/2023 10:55 am CLINICAL HISTORY: Radiculopathy;Pain COMPARISON: Spine Lumbar Wo Con dated 10/02/2023 TECHNIQUE: Axial noncontrast CT imaging of the lumbar spine was performed with coronal and sagittal re-formatted images. All CT scans are performed using dose optimization technique as appropriate and may include automated exposure control or mA/KV adjustment according to patient size. FINDINGS: No acute lumbar spine fracture seen. No aggressive marrow pattern. Minimal anterolisthesis of L5 over S1, measuring 3 mm, stable. 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 Multilevel facet arthropath y. Paraspinal tissues are normal in thickness. No paraspinal abscess or hematoma seen. Intervertebral disc disease assessment is inherently limited by CT. Within these limitations, no high -grade canal stenosis suspected. Stable posterior disc protrusion at L5-S1, contributing to at least moderate bilateral neural foraminal narrowing worse on the left. Mild posterior disc protrusion at L 4-5 contributing to bvsl-sm-gmjxoazn neural foraminal narrowings, also stable. IMPRESSION: No acute lumbar spine fracture or subluxation. Stable multilevel degenerative changes as above. Please consider MRI follow-up for assessment of disc disease and foraminal stenoses if clinically ind icated.
--- NOTE | 2023-10-29 11:58 | RAD REPORT ---
EXAM DESCRIPTION: US - Scrotum Testicles - 10/29/2023 11:27 am CLINICAL HISTORY: PAIN COMPARISON: No comparisons TECHNIQUE: Sonographic grayscale and color flow images of the scrotum were obtained. FINDINGS: The right testicle measures 4.7 x 2.4 x 3.4 cm. No intratesticular masses or evidence of t esticular torsion. The left testicle measures 4.6 x 2.4 x 2.9 cm. Peripheral left testicular 2 mm cyst adjacent to the t unica, likely benign. No intratesticular masses or evidence of testicular torsion. Both epididymides are normal in size and appearance. Small left hydrocele. IMPRESSION: Small left hydrocele. No findings to suggest testicular torsion. Likely benign 2 mm left testicular parenchymal cyst.
--- NOTE | 2023-10-29 12:04 | ER ---
Nurse's Notes [facility] Name: Eugenio Villarreal Age: 58 yrs Sex: Male : 1965 Arrival Date: 10/29/2023 Time: 09:55 Bed 14 Private MD: Javi Hammond Diagnosis: Chronic lower back pain with radiculopathy Presentation: 10/29 10:13 Chief complaint: Right groin pain x 1 month, pain in testicle x 1 week. Coronavirus hb screen: At this time, the client does not indicate any symptoms associated with coronavirus-19. Ebola Screen: No symptoms or risks identified at this time. Initial Sepsis Screen: Does the patient meet any 2 criteria? No. Patient's initial sepsis screen is negative. Does the patient have a suspected source of infection? No. Patient's initial sepsis screen is negative. Risk Assessment: Do you want to hurt yourself or someone else? Patient reports no desire to harm self or others. Onset of symptoms was September 2023. 10:13 Method Of Arrival: Ambulatory hb 10:13 Acuity: KASHIF 3 hb Triage Assessment: 10:17 General: Appears in no apparent distress. Behavior is calm, cooperative. Pain: Pain hb currently is 8 out of 10 on a pain scale. Neuro: Level of Consciousness is awake, alert, obeys commands, Oriented to person, place, time, situation. Cardiovascular: Patient's skin is warm and dry. Respiratory: Respiratory effort is even, unlabored, Respiratory pattern is regular, symmetrical. Historical: - Allergies: 10:15 Clarithromycin; hb - Home Meds: 10:15 amlodipine oral [Active]; Keppra Oral [Active]; Prilosec Oral [Active]; gabapentin 300 hb mg oral capsule 3 times per day [Active]; Methocarbamol Oral [Active]; - PMHx: 10:15 Hypertension; Seizure; hb - Immunization history:: Adult Immunizations up to date. - Social history:: Smoking status: Patient denies any tobacco usage or history of. Screenin:35 [facility] ED Fall Risk Assessment (Adult) History of falling in the last 3 months, rs5 including since admission No falls in past 3 months (0 pts) Confusion or Disorientation No (0 pts) Intoxicated or Sedated No (0 pts) Impaired Gait No (0 pts) Mobility Assist Device Used No (0 pt) Altered Elimination No (0 pt) Score/Fall Risk Level 0 - 2 = Low Risk Oriented to surroundings, Maintained a safe environment. 10:35 Abuse screen: Denies threats or abuse. Nutritional screening: No deficits noted. rs5 Tuberculosis screening: No symptoms or risk factors identified. Assessment: 10:31 General: Appears in no apparent distress. uncomfortable, Behavior is calm, cooperative. rs5 Pain: Complains of pain in right hip Pain radiates to groin Pain currently is 8 out of 10 on a pain scale. Quality of pain is described as aching, Is continuous. Neuro: Level of Consciousness is awake, alert, obeys commands, Oriented to person, place, time, situation. Cardiovascular: Patient's skin is warm and dry. Rhythm is regular. Respiratory: Respiratory effort is even, unlabored, Respiratory pattern is regular, symmetrical. 10:31 GI: Abdomen is round non-distended, Abd is soft and non tender X 4 quads. : Reports rs5 pain testicle. EENT: No signs and/or symptoms were reported regarding the EENT system. Derm: Skin is intact, Skin is pink, warm \T\ dry. Musculoskeletal: Circulation, motion, and sensation intact. Range of motion: intact in all extremities. 11:15 Reassessment: Patient and/or family updated on plan of care and expected duration. Pain rs5 level reassessed. Patient is alert, oriented x 3, equal unlabored respirations, skin warm/dry/pink. Patient states feeling better. Patient states symptoms have improved. 12:01 Reassessment: Patient and/or family updated on plan of care and expected duration. Pain rs5 level reassessed. Patient is alert, oriented x 3, equal unlabored respirations, skin warm/dry/pink. Pain: Complains of pain in right hip Pain radiates to groin Pain currently is 7 out of 10 on a pain scale. Quality of pain is described as aching, Is continuous. 12:02 Reassessment: provider notified pt is reexperiencing pain. rs5 12:05 Reassessment: to bedside for med adm. rs5 Vital Signs: 10:13 BP 157 / 88; Pulse 67; Resp 16; Temp 98.5; Pulse Ox 100% on R/A; hb 11:01 BP 150 / 85; Pulse 72; Resp 18; Temp 98.4(O); Pulse Ox 99% on R/A; rs5 12:02 BP 148 / 82; Pulse 69; Resp 17; Pulse Ox 99% on R/A; rs5 ED Course: 09:58 Patient arrived in ED. mr 09:58 Javi Hammond MD is Private Physician. mr 10:11 Marcia Lopez, TRAN [facility] 7 10:11 Trenton Neal MD is Attending Physician. jh7 10:15 Triage completed. hb 10:17 Arm band placed on. hb 10:35 Patient has correct armband on for positive identification. Bed in low position. Call rs5 light in reach. Side rails up X2. 10:35 No provider procedures requiring assistance completed. rs5 10:40 Flaco Dunlap, PABLO is Primary Nurse. rs5 10:55 CT Lumbar Spine Wo Con In Process Unspecified. EDMS 11:29 US Scrotum Testicles In Process Unspecified. EDMS 12:03 Javi Hammond MD is Referral Physician. jh7 12:05 Patient did not have IV access during this emergency room visit. rs5 Administered Medications: 10:45 Drug: [place] PO 10 mg-325 mg 1 tabs PO once Route: PO; rs5 11:05 Follow up: Response: No adverse reaction; Pain is decreased rs5 12:05 Drug: Ketorolac IM 30 mg IM once Route: IM; Site: left deltoid; rs5 12:05 Drug: Dexamethasone IM 10 mg IM once Route: IM; Site: right deltoid; rs5 Medication: 12:01 VIS not applicable for this client. rs5 Outcome: 12:03 Discharge ordered by . jh7 12:10 Discharged to home ambulatory, rs5 12:10 Condition: stable 12:10 Discharge instructions given to patient, Instructed on discharge instructions, follow up and referral plans. medication usage, Demonstrated understanding of instructions, follow-up care, medications, Prescriptions given X 2, 12:17 Patient left the ED. rs5 Signatures: Dispatcher [employer] EDNV DeanGricelda, Reg Reg HerreraEmi, PABLO SHAH Marcia Lopez, HOTEL CUSTODIAN HOTEL CUSTODIAN [facility] Flaco Dunlap, PABLO RN rs5 Corrections: (The following items were deleted from the chart) 10:18 10:13 Chief complaint: Right groin pain x 1 week. Seen in ED for low back pain that hb radiates to right thigh last month, reports pain has become worse and radiates groin now. hb
--- NOTE | 2023-10-29 12:04 | EDPHYS ---
Physician Documentation [facility] Name: Eugenio Villarreal Age: 58 yrs Sex: Male : 1965 Arrival Date: 10/29/2023 Time: 09:55 Bed 14 Private MD: Javi Hammond ED Physician Trenton Neal HPI: 10/29 10:13 This 58 yrs old Male presents to ER via Ambulatory with complaints of Groin Pain. jh7 10:13 Onset: The symptoms/episode began/occurred 4 week(s) ago, and became worse 1 week(s) jh7 ago. Associated signs and symptoms:. 58-year-old male presents to the ER for lower back pain radiating to right testicle and R thigh for 1 month. The patient reports a history of protruding disc at L4-L5 and chronic back problems. Reports that he has made an appointment with a spine doctor but they cannot get him in. Reports that the pain is now radiating to his right testicle but denies any dysuria or urinary symptoms. Denies any new injury. Reports that he has had difficulty working due to the pain. No loss of bowel or bladder.. Historical: - Allergies: 10:15 Clarithromycin; hb - Home Meds: 10:15 amlodipine oral [Active]; Keppra Oral [Active]; Prilosec Oral [Active]; gabapentin 300 hb mg oral capsule 3 times per day [Active]; Methocarbamol Oral [Active]; - PMHx: 10:15 Hypertension; Seizure; hb - Immunization history:: Adult Immunizations up to date. - Social history:: Smoking status: Patient denies any tobacco usage or history of. ROS: 10:13 Constitutional: Negative for fever, chills, and weight loss, Eyes: Negative for injury, jh7 pain, redness, and discharge, ENT: Negative for injury, pain, and discharge, Neck: Negative for injury, pain, and swelling, Cardiovascular: Negative for chest pain, palpitations, and edema, Respiratory: Negative for shortness of breath, cough, wheezing, and pleuritic chest pain, Abdomen/GI: Negative for abdominal pain, nausea, vomiting, diarrhea, and constipation, : Negative for injury, bleeding, discharge, and swelling, MS/Extremity: Negative for injury and deformity, Skin: Negative for injury, rash, and discoloration, Neuro: Negative for headache, weakness, numbness, tingling, and seizure, 10:13 Back: Positive for pain at rest, pain with movement, radiated pain, 10:13 All other systems are negative, Exam: 10:13 Constitutional: This is a well developed, well nourished patient who is awake, alert, jh7 and in no acute distress. Head/Face: Normocephalic, atraumatic. Eyes: Pupils equal round and reactive to light, extra-ocular motions intact. Lids and lashes normal. Conjunctiva and sclera are non-icteric and not injected. Cornea within normal limits. Periorbital areas with no swelling, redness, or edema. Neck: Trachea midline, no thyromegaly or masses palpated, and no cervical lymphadenopathy. Supple, full range of motion without nuchal rigidity, or vertebral point tenderness. No Meningismus. Cardiovascular: Regular rate and rhythm with a normal S1 and S2. No gallops, murmurs, or rubs. Normal PMI, no JVD. No pulse deficits. Respiratory: Lungs have equal breath sounds bilaterally, clear to auscultation and percussion. No rales, rhonchi or wheezes noted. No increased work of breathing, no retractions or nasal flaring. Abdomen/GI: Soft, non-tender, with normal bowel sounds. No distension or tympany. No guarding or rebound. No evidence of tenderness throughout. Back: No spinal tenderness. No costovertebral tenderness. Full range of motion. Male : Normal genitalia with no discharge or lesions. Skin: Warm, dry with normal turgor. Normal color with no rashes, no lesions, and no evidence of cellulitis. MS/ Extremity: Pulses equal, no cyanosis. Neurovascular intact. Full, normal range of motion. Neuro: Awake and alert, GCS 15, oriented to person, place, time, and situation. Motor strength 5/5 in all extremities. Sensory grossly intact. 10:13 Back: pain, that is moderate, of the right low back, ROM is painful, with all movement, normal spinal alignment noted, CVA tenderness, is absent, vertebral tenderness, is not appreciated, muscle spasm, is appreciated in the right low back, Vital Signs: 10:13 BP 157 / 88; Pulse 67; Resp 16; Temp 98.5; Pulse Ox 100% on R/A; hb 11:01 BP 150 / 85; Pulse 72; Resp 18; Temp 98.4(O); Pulse Ox 99% on R/A; rs5 12:02 BP 148 / 82; Pulse 69; Resp 17; Pulse Ox 99% on R/A; rs5 MDM: 10:11 Patient medically screened. [facility] 12:25 Differential diagnosis: Chronic back pain, lumbar stenosis, herniated disc, testicular jh7 torsion, hydrocele, scrotal hematoma. Data reviewed: vital signs, nurses notes, lab test result(s), radiologic studies, CT scan, ultrasound. I considered the following discharge prescriptions or medication management in the emergency department Medications were administered in the Emergency Department. See MAR. Care significantly affected by the following chronic conditions: Hypertension. Counseling: I had a detailed discussion with the patient and/or guardian regarding the historical points, exam findings, and any diagnostic results supporting the discharge/admit diagnosis, the need for outpatient follow up, ortho/spine, to return to the emergency department if symptoms worsen or persist or if there are any questions or concerns that arise at home. Response to treatment: the patient's symptoms have mildly improved after treatment. 10/29 10:19 Order name: Urinalysis w/ reflexes; Complete Time: 11:39 [facility] 10/29 10:19 Order name: CT Lumbar Spine Wo Con; Complete Time: 11:39 [facility] 10/29 10:19 Order name: US Scrotum Testicles; Complete Time: 12:00 [facility] Administered Medications: 10:45 Drug: Hilliards PO 10 mg-325 mg 1 tabs PO once Route: PO; rs5 11:05 Follow up: Response: No adverse reaction; Pain is decreased rs5 12:05 Drug: Ketorolac IM 30 mg IM once Route: IM; Site: left deltoid; rs5 12:05 Drug: Dexamethasone IM 10 mg IM once Route: IM; Site: right deltoid; rs5 Disposition: 12:41 Co-signature as Attending Physician, Trenton Neal MD I agree with the assessment and kdr plan of care. Disposition Summary: 10/29/23 12:03 Discharge Ordered Notes: Location: Home [facility] Problem: chronic [facility] Symptoms: are unchanged [facility] Condition: Stable [facility] Diagnosis - Chronic lower back pain with radiculopathy [facility] Followup: [facility] - With: Javi Hammond MD - When: 2 - 3 days - Reason: Recheck today's complaints Discharge Instructions: - Discharge Summary Sheet [facility] - Chronic Back Pain [facility] Forms: - Medication Reconciliation Form [facility] - Thank You Letter [facility] - Prescription Opioid Use [facility] - Patient Portal Instructions [facility] - Leadership Thank You Letter [facility] - Work release form rs5 Prescriptions: - Zanaflex 4 mg Oral Tablet - take 1 tablet ORAL route every 8 hours As needed; 20 tablet; Refills: 0, [facility] Product Selection Permitted - Tramadol 50 mg Oral Tablet - take 1 tablet ORAL route every 8 hours as needed; 12 tablet; Refills: 0, [facility] Product Selection Permitted Signatures: Dispatcher [employer] EDTrenton Alan MD MD [facility] Emi Herrera, RN RN Marcia Lopez, COMMERCIAL MANAGER [place] [id number] Flaco Dunlap, RN RN rs5
[2023-10-29 12:28] VITALS: BP 157/88; TEMP 98.5; O2SAT 100
== END ==
LOC: ER 09:55
DX: M54.16 Radiculopathy, lumbar region (principal)
CPT/HCPCS: 72131; 76870; 81001; 96372; 99284; J1100

== ENCOUNTER 2024-02-24 02:39 | Emergency (ER) | payer SELFPAY ==
--- OUTSIDE RECORDS SUMMARY | 2024-02-24 02:42 | XMS REPORT | Continuity of Care Document ---
Author Name Unknown Address [address] [facility] [address] [place] [address] [facility] thconnect Address [address] [facility] 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 Role Phone BLANCO VÁZQUEZ Primary Care Physician Nelly GUERLINE Pisano Attending Clinician Unavailable Blanco Vázquez MD Attending Clinician + [phone] Doctor Unassigned, [place] Attending Clinician U BLANCO Vidal Attending Clinician Unajessie Avila MD, Victoria Ku Attending Clinician FRANKIE GALVAN Attending Clinician Unavail able FRANKIE GALVAN Attending Clinician Unavail able Khurram Mar Attending Clinician [phone] KHURRAM DISLA Attending Clinician Unavailable CHANDLER BROWER Attending Clinician Unavaila MARYLOU Zeng Attending Clinician Unavail able MARYLOU FUNEZ Attending Clinician Unavail able Ronit RN, Marina Montoya Attending Clinician Unavailab solomon Funez MD, Marylou Webster Attending Clinician Only, Ang Db Test Attending Clinician UnavailOnelia Dozier Attending Clinician [phone] DANIEL ASHER Attending Clinician UnavailEmi Hampton PT Attending Clinician Unavailab Meño Rincon Attending Clinician [phone] MEÑO CAPELLAN Attending Clinician Unavailable Cowart PAC, Zuleika S Attending Clinician [phone] Randa Erazo Attending Clinician [phone] Rupa Hung Attending Clinician [phone] RUPA GRAMAJO Attending Clinician Unavailable Frankie Galvan MD Attending Clinician [phone] Darlin Munoz DO Attending Clinician [phone] Herson Douglas MD Attending Clinician [phone] Liam CORTES, Daisha [place] Attending Clinician [phone] Anh ANTHONY, Angela Funk Attending Clinician [phone] MEÑO CAPELLAN Admitting Clinician Unavailable Herson Douglas MD Admitting Clinician [phone] Payers Payer Name Policy Type Policy Number Effective Date Expirati on Date Source [facility] [id number] 2017 00:00:00 Problems Condition Name Condition Details Condition Category Status Onset Date Resolution Date Last Treatment Date Treating Clinician Comments Source Seizure disorder Seizure disorder Disease Active 04-14 00:00: 00 General acute hospital Gastroesop hageal reflux disease without esophagiti s Gastroesop hageal reflux disease without esophagiti s Disease Active 04-14 00:00: 00 General acute hospital Essential hypertensi on Essential hypertensi on Disease Active 2019-09 00:00: 00 General acute hospital DARREN (acute kidney injury) DARREN (acute kidney injury) Disease Active 2019-09 00:00: 00 General acute hospital DARREN (acute kidney injury) DARREN (acute kidney injury) Disease Active 2019-09 00:00: 00 General acute hospital Elevated troponin Elevated troponin Disease Active 2019-09 00:00: 00 General acute hospital Elevated troponin Elevated troponin Disease Active 2019-09 00:00: 00 General acute hospital Allergies, Adverse Reactions, Alerts Allergy Name Allergy Type Status Severity Reaction(s) Onset Date Inactive Date Treating Clinician Comments Source NO KNOWN ALLERGIE S Drug Class Active General acute hospital Social History Social Habit Start Date Stop Date Quantity Comments Source [facility] Alcohol intake 2023-10-11 00:00:00 2023-10-11 00:00:00 Current drinker of alcohol (finding) [facility] History of Social function 2023-05-24 00:00:00 2023-05-24 00:00:00 [facility] Exposure to SARS-CoV-2 (event) 2022-04-04 00:00:00 2022-04-14 13:54:00 Not sure [facility] Tobacco use and exposure 2022-04-14 00:00:00 2022-04-14 00:00:00 Smokeless tobacco non-user [facility] History SDOH Food Scarcity 2020-07-09 00:00:00 2020-07-09 00:00:00 1 [facility] History SDOH Transport Med 2020-07-09 00:00:00 2020-07-09 00:00:00 2 [facility] History SDOH Transport Non-Med 2020-07-09 00:00:00 2020-07-09 00:00:00 2 [facility] Education - What is the highest level of school you have completed or the highest degree you have received? 2020-07-09 00:00:00 2020-07-09 00:00:00 High school graduate [facility] History SDOH Financial 2020-07-09 00:00:00 2020-07-09 00:00:00 3 [facility] History SDOH Food Worry 2020-07-09 00:00:00 2020-07-09 00:00:00 1 [facility] Sex Assigned At 1965 00:00:00 1965 00:00:00 [facility] Smoking Status Start Date Stop Date Source Tobacco smoking consumption unknown [facility] Never smoked tobacco General acute hospital Medications Ordered Medication Name Filled Medication Name Start Date Stop Date Current Medication? Ordering Clinician Indication Dosage Frequency Signature (SIG) Comments Components Source LEVETIRACET AM 1,000 mg tablet 01-01 00:00: 00 Yes [id number] TAKE 1 TABLET BY MOUTH TWICE A DAY IN THE MORNING AND IN THE EVENING General acute hospital LEVETIRACET AM 1,000 mg tablet 327 00:00: 00 01-01 00:00 :00 No [id number] TAKE 1 TABLET BY MOUTH TWICE A DAY IN THE MORNING AND IN THE EVENING General acute hospital gabapentin 100 mg capsule 10-11 16:02: 36 10-11 00:00 :00 No 100mg Take 1 capsule by mouth in the morning and 1 capsule at noon and 1 capsule in the evening. [facility] acute hospital diclofenac 75 mg EC tablet 10-11 15:55: 12 Yes 75mg Take 1 tablet by mouth in the morning and 1 tablet at noon and 1 tablet in the evening. Take with meals. General acute hospital methylPREDN ISolone (MEDROL, CLARY,) 4 mg tablets 10-11 00:00: 00 Yes [id number] 2 Take by mouth SEE-INSTRU CTIONS. follow package directions General acute hospital gabapentin 300 mg capsule 10-11 00:00: 00 Yes [id number] 2 300mg Take 1 capsule by mouth in the morning and 1 capsule at noon and 1 capsule in the evening. General acute hospital OMEPRAZOLE 20 mg capsule 2022-09 00:00: 00 Yes [id number] TAKE ONE CAPSULE BY MOUTH EVERY MORNING General acute hospital azithromyci n 500 mg tablet 2022-09 00:00: 00 10-11 00:00 :00 No [id number] 500mg Take 1 tablet by mouth in the morning. General acute hospital amLODIPine- benazepriL 5-20 mg per capsule 05-24 00:00: 00 Yes [id number] TAKE ONE CAPSULE BY MOUTH EVERY MORNING General acute hospital methocarbam oL 500 mg tablet 05-24 00:00: 00 10-11 00:00 :00 No [id number] 500mg Take 1 tablet by mouth 4 (four) times daily as needed for Pain (scale 4-6). General acute hospital omeprazole 20 mg capsule 2023-0 9-07 00:00: 00 08-09 00:00 :00 No [id number] 20mg Take 1 capsule by mouth in the morning. General acute hospital amLODIPine- benazepriL 5-20 mg per capsule 0 8-28 00:00: 00 05-24 00:00 :00 No [id number] TAKE ONE CAPSULE BY MOUTH EVERY MORNING General acute hospital levETIRAcet am 1,000 mg tablet 8 00:00: 00 11-29 00:00 :00 No [id number] 1000mg Take 1 tablet by mouth in the morning and 1 tablet in the evening. General acute hospital AMLODIPINE- BENAZEPRIL 5-20 mg per capsule 0 6-28 00:00: 00 05-02 00:00 :00 No [id number] TAKE ONE CAPSULE BY MOUTH EVERY MORNING General acute hospital amLODIPine- benazepriL 5-20 mg per capsule 0 5-30 00:00: 00 Yes [id number] TAKE ONE CAPSULE BY MOUTH EVERY MORNING General acute hospital AMLODIPINE- BENAZEPRIL 5-20 mg per capsule 0 4-26 00:00: 00 Yes [id number] TAKE ONE CAPSULE BY MOUTH EVERY MORNING General acute hospital AMLODIPINE- BENAZEPRIL 5-20 mg per capsule 0 3-23 00:00: 00 12-29 00:00 :00 No [id number] TAKE ONE CAPSULE BY MOUTH EVERY MORNING General acute hospital amLODIPine- benazepriL 5-20 mg per capsule 0 2-22 00:00: 00 Yes [id number] 1{capsu le} Take 1 capsule by mouth in the morning. General acute hospital amLODIPine- benazepriL 5-20 mg per capsule 0 8-10 00:00: 00 Yes [id number] 1{capsu le} Take 1 capsule by mouth in the morning. General acute hospital omeprazole 20 mg capsule 2021-0 8-10 00:00: 00 05-12 00:00 :00 No [id number] 20mg Take 1 capsule by mouth in the morning. General acute hospital levETIRAcet am 1,000 mg tablet 8-10 00:00: 00 04-26 00:00 :00 No [id number] 1000mg Take 1 tablet by mouth in the morning and 1 tablet in the evening. General acute hospital AMLODIPINE- BENAZEPRIL 5-20 mg per capsule 5-24 00:00: 00 04-14 00:00 :00 No [id number] TAKE ONE CAPSULE BY MOUTH DAILY General acute hospital meloxicam 15 mg tablet 7-20 00:00: 00 05-24 00:00 :00 No [id number] 15mg Take 1 tablet by mouth daily. General acute hospital methocarbam oL 500 mg tablet 5-04 00:00: 00 05-24 00:00 :00 No [id number] 500mg Take 1 tablet by mouth 4 (four) times daily as needed for Pain (scale 4-6). General acute hospital lidocaine 5 % (700 mg/patch) patch 4-16 00:00: 00 05-24 00:00 :00 No [id number] Apply 1-2 patches to the area and leave in place for up to 12 hours in a day. Do not reapply patches until the next day. General acute hospital meloxicam 15 mg TbDL 4-16 00:00: 00 05-24 00:00 :00 No [id number] 1{tbl} Take 1 tablet by mouth daily. General acute hospital methylPREDN ISolone (MEDROL, CLARY,) 4 mg tablets 4-14 00:00: 00 05-24 00:00 :00 No [id number] 84mg Take 21 tablets by mouth SEE-INSTRU CTIONS. follow package directions General acute hospital levETIRAcet am 1,000 mg tablet 2-10 00:00: 00 04-14 00:00 :00 No [id number] 1000mg Take 1 tablet by mouth 2 (two) times daily. General acute hospital omeprazole 20 mg capsule 2-10 00:00: 00 04-14 00:00 :00 No [id number] 20mg Take 1 capsule by mouth daily. General acute hospital albuterol 90 mcg/actuati on inhaler 04-27 00:00: 00 05-24 00:00 :00 No [id number] 2{puff} Inhale 2 Puffs every 4 (four) hours as needed for Wheezing or Shortness of Breath. General acute hospital Immunizations Ordered Immunization Name Filled Immunization Name Date Status Comments Source Influenza Virus Vaccine Quad .5 mL IM 6+ MO 2020-07-10 00:00:00 Completed [facility] Influenza Virus Vaccine Quad .5 mL IM 6+ MO 2020-07-10 00:00:00 Completed [facility] Influenza Virus Vaccine Quad .5 mL IM 6+ MO 2020-07-10 00:00:00 Completed [facility] Influenza Virus Vaccine Quad .5 mL IM 6+ MO 2020-07-10 00:00:00 Completed [facility] Influenza Virus Vaccine Quad .5 mL IM 6+ MO 2020-07-10 00:00:00 Completed [facility] Influenza Virus Vaccine Quad .5 mL IM 6+ MO 2020-07-10 00:00:00 Completed [facility] Influenza Virus Vaccine Quad .5 mL IM 6+ MO (FLUZONE/FLULAVAL/F LUARIX) 2020-07-10 00:00:00 Completed [facility] Influenza Virus Vaccine Quad .5 mL IM 6+ MO (FLUZONE/FLULAVAL/F LUARIX) 2020-07-10 00:00:00 Completed [facility] Influenza Virus Vaccine Quad .5 mL IM 6+ MO (FLUZONE/FLULAVAL/F LUARIX) 2020-07-10 00:00:00 Completed [facility] Influenza Virus Vaccine Quad .5 mL IM 6+ MO (FLUZONE/FLULAVAL/F LUARIX) 2020-07-10 00:00:00 Completed [facility] Influenza Virus Vaccine Quad .5 mL IM 6+ MO 2020-07-10 00:00:00 Completed [facility] Influenza Virus Vaccine Quad .5 mL IM 6+ MO 2020-07-10 00:00:00 Completed [facility] Influenza Virus Vaccine Quad .5 mL IM 6+ MO 2020-07-10 00:00:00 Completed [facility] Influenza Virus Vaccine Quad .5 mL IM 6+ MO (FLUZONE/FLULAVAL/F LUARIX) Unknown Completed [facility] Influenza Virus Vaccine Quad .5 mL IM 6+ MO (FLUZONE/FLULAVAL/F LUARIX) Unknown Completed [facility] Influenza Virus Vaccine Quad .5 mL IM 6+ MO (FLUZONE/FLULAVAL/F LUARIX) Unknown Completed [facility] Influenza Virus Vaccine Quad .5 mL IM 6+ MO (FLUZONE/FLULAVAL/F LUARIX) Unknown Completed [facility] Influenza Virus Vaccine Quad .5 mL IM 6+ MO (FLUZONE/FLULAVAL/F LUARIX) Unknown Completed [facility] Influenza Virus Vaccine Quad .5 mL IM 6+ MO (FLUZONE/FLULAVAL/F LUARIX) Unknown Completed [facility] Influenza Virus Vaccine Quad .5 mL IM 6+ MO (FLUZONE/FLULAVAL/F LUARIX) Unknown Completed [facility] Influenza Virus Vaccine Quad .5 mL IM 6+ MO (FLUZONE/FLULAVAL/F LUARIX) Unknown Completed [facility] Influenza Virus Vaccine Quad .5 mL IM 6+ MO (FLUZONE/FLULAVAL/F LUARIX) Unknown Completed [facility] Influenza Virus Vaccine Quad .5 mL IM 6+ MO (FLUZONE/FLULAVAL/F LUARIX) Unknown Completed [facility] Influenza Virus Vaccine Quad .5 mL IM 6+ MO (FLUZONE/FLULAVAL/F LUARIX) Unknown Completed [facility] Vital Signs Vital Name Observation Time Observation Value Comments S ource Systolic blood pressure 2023-10-11 21:50:00 147 mm[facility]Hg[facility] Diastolic blood pressure 2023-10-11 21:50:00 89 mm[Hg] [facility] Heart rate 2023-10-11 21:36:00 75 /min [facility] Body height 2023-10-11 21:36:00 170.2 cm [facility] Body weight 2023-10-11 21:36:00 76.204 kg [facility] BMI 2023-10-11 21:36:00 26.31 kg/m2 [facility] Systolic blood pressure 2023-07-06 19:19:00 137 mm[Hg] [facility] Diastolic blood pressure 2023-07-06 19:19:00 79 mm[Hg] [facility] Heart rate 2023-07-06 19:19:00 64 /min [facility] Body temperature 2023-07-06 19:19:00 37 Nena [facility] Body height 2023-07-06 19:19:00 170.2 cm [facility] Body weight 2023-07-06 19:19:00 73.483 kg [facility] BMI 2023-07-06 19:19:00 25.37 kg/m2 [facility] Systolic blood pressure 2023-05-24 20:19:00 131 mm[Hg] [facility] Diastolic blood pressure 2023-05-24 20:19:00 75 mm[Hg] [facility] Heart rate 2023-05-24 20:19:00 52 /min [facility] Body temperature 2023-05-24 20:19:00 36.78 Nena [facility] Body height 2023-05-24 20:19:00 167.6 cm [facility] Body weight 2023-05-24 20:19:00 77.111 kg [facility] BMI 2023-05-24 20:19:00 27.44 kg/m2 [facility] Systolic blood pressure 2022-04-14 19:12:00 137 mm[Hg] [facility] Diastolic blood pressure 2022-04-14 19:12:00 72 mm[Hg] [facility] Heart rate 2022-04-14 19:12:00 56 /min [facility] Body height 2022-04-14 19:12:00 170.2 cm [facility] Body weight 2022-04-14 19:12:00 78.472 kg [facility] BMI 2022-04-14 19:12:00 27.10 kg/m2 [facility] Oxygen saturation in Arterial blood by Pulse oximetry 2022-04-14 19:12:00 99 /min [facility] Procedures Procedure Date / Time Performed Performing Clinician Source EXTERNAL PROVIDER RECORDS 2023-11-08 06:01:00 Doctor Unassigned, [place] [facility] EXTERNAL PROVIDER RECORDS 2023-10-24 06:01:00 Doctor Unassigned, [place] [facility] CONSENT/REFUSAL FOR DIAGNOSIS AND TREATMENT 2023-05-24 20:01:05 Doctor Unassigned, [place] [facility] ASSIGNMENT OF BENEFITS 2023-05-24 20:00:48 Docto r Unassigned, [place] [facility] RADIOLOGY DOCUMENTATION Doct or Unassigned, [place] [facility] Encounters Start Date/Time End Date/Time Encounter Type Admission Type Attending Clinicians Care Facility Care Department Encounter ID Source 2021-07-05 13:21:58 Emergency [facility] [id number] General acute hospital 2024-01-01 00:00:00 2024-01-01 00:00:00 Refmolina Vázquez [facility] 1.2840.114 350.1.13.10 4.2.7.2.686 [id number] General acute hospital 2023-11-29 00:00:00 2023-11-29 00:00:00 Arielle Vázquez [facility] 1..840.114 350.1.13.10 4.2.7.2.686 [id number] General acute hospital 2023-11-08 00:00:00 2023-11-08 00:00:00 Orders Only Doctor Unassigned, [place] [facility] 1.2840.114 350.1.13.10 4.2.7.2.686 [id number] General acute hospital 2023-10-24 00:00:00 2023-10-24 00:00:00 Orders Only Doctor Unassigned, [place] [facility] 1.2.840.114 350.1.13.10 4.2.7.2.686 [id number] General acute hospital 2023-10-11 16:00:00 2023-10-11 16:15:00 Office Visit Blanco Vázquez [facility] 1.2.840.114 350.1.13.10 4.2.7.2.686 [id number] General acute hospital 2023-10-11 16:00:00 2023-10-11 16:00:00 Outpatient BLANCO WILKINS [facility] [id number] General acute hospital 2023-08-08 00:00:00 2023-08-08 00:00:00 Victoria Domingo [facility] 1.2.840.114 350.1.13.10 4.2.7.2.686 [id number] General acute hospital 2023-07-06 14:30:00 2023-07-06 15:00:00 Office Visit Suzannedaynamary Blnaco [facility] 1.2.840.114 350.1.13.10 4.2.7.2.686 [id number] General acute hospital 2023-07-06 14:30:00 2023-07-06 14:30:00 Outpatient BLANCO WILKINS [facility] [id number] General acute hospital 2023-07-01 12:40:00 2023-07-01 12:40:00 Outpatient FRANKIE CHANDLER HOWARD [facility] [id number] General acute hospital 2023-05-24 15:30:00 2023-05-24 15:45:00 Office Visit SuzanneBlanco nails [facility] 1.840.114 350.1.13.10 4.2.7.2.686 [id number] General acute hospital 2023-05-24 15:30:00 2023-05-24 15:30:00 Outpatient R LYSSAMARYBLANCO [facility] [id number] General acute hospital 2023-05-24 00:00:00 2023-05-24 00:00:00 Orders Only Doctor Unassigned, [place] [facility] 1.840.114 350.1.13.10 4.2.7.2.686 [id number] General acute hospital 2023-05-12 00:00:00 2023-05-12 00:00:00 Refill SuzannedaynaBlanco esquivel [facility] J[facility]ON?[facility] 1.840.114 350.1.13.10 4.2.7.2.686 [id number] General acute hospital 2023-05-02 00:00:00 2023-05-02 00:00:00 Refill Suzannedaynamary Blanco [facility] 1.840.114 350.1.13.10 4.2.7.2.686 [id number] General acute hospital 2023-04-29 00:00:00 2023-04-29 00:00:00 Refill SuzannedaynaBlanco esquivel [facility] 1.840.114 350.1.13.10 4.2.7.2.686 [id number] General acute hospital 2023-04-26 00:00:00 2023-04-26 00:00:00 Refill Khurram Disla [facility] 1.2840.114 350.1.13.10 4.2.7.2.686 [id number] General acute hospital 2023-04-18 00:00:00 2023-04-18 00:00:00 [facility] 1.2840.114 350.1.13.10 4.2.7.2.686 [id number] General acute hospital 2023-03-02 00:00:00 2023-03-02 00:00:00 Refill Khurram Disla [facility] 1.2840.114 350.1.13.10 4.2.7.2.686 [id number] General acute hospital 2023-02-01 00:00:00 2023-02-01 00:00:00 [facility] 1.2840.114 350.1.13.10 4.2.7.2.686 [id number] General acute hospital 2022-12-29 00:00:00 2022-12-29 00:00:00 Refill Blanco Vázquez [facility] 1.2840.114 350.1.13.10 4.2.7.2.686 [id number] General acute hospital 2022-11-24 00:00:00 2022-11-24 00:00:00 Refill Blanco Vázquez [facility] 1.2840.114 350.1.13.10 4.2.7.2.686 [id number] General acute hospital 2022-10-27 00:00:00 2022-10-27 00:00:00 [facility] 1..840.114 350.1.13.10 4.2.7.2.686 [id number] General acute hospital 2022-04-20 07:30:00 2022-04-20 07:30:00 Outpatient R BLANCO VÁZQUEZ [facility] [id number] General acute hospital 2022-04-14 14:00:00 2022-04-14 14:30:00 Office Visit Nighat Khurram [facility] 1.840.114 350.1.13.10 4.2.7.2.686 [id number] General acute hospital 2022-04-14 14:00:00 2022-04-14 14:00:00 Outpatient R KHURRAM DISLA [facility] [id number] General acute hospital 2022-04-14 00:00:00 2022-04-14 00:00:00 Telephone Blanco Vázquez [facility] 1.840.114 350.1.13.10 4.2.7.2.686 [id number] General acute hospital 2022-04-14 00:00:00 2022-04-14 00:00:00 Orders Only Doctor Unassigned, [place] [facility] 1.840.114 350.1.13.10 4.2.7.2.686 [id number] General acute hospital 2022-04-13 00:00:00 2022-04-13 00:00:00 [facility]ill [facility] 1.840.114 350.1.13.10 4.2.7.2.686 [id number] General acute hospital 2022-04-13 00:00:00 2022-04-13 00:00:00 RefBlanco Vides [facility] 1.2.840.114 350.1.13.10 4.2.7.2.686 [id number] General acute hospital 2022-04-12 00:00:00 2022-04-12 00:00:00 RefBlanco Vides [facility] 1.2840.114 350.1.13.10 4.2.7.2.686 [id number] General acute hospital 2022-04-09 00:00:00 2022-04-09 00:00:00 Blanco Armijo [facility] 1..840.114 350.1.13.10 4.2.7.2.686 [id number] General acute hospital 2022-01-26 00:00:00 2022-01-26 00:00:00 Arielle Vázquez [facility] 1.84.114 350.1.13.10 4.2.7.2.686 [id number] General acute hospital 2021-05-26 08:00:00 2021-05-26 08:00:00 Outpatient CHANDLER HANKINS [facility] [id number] General acute hospital 2021-05-12 13:00:00 2021-05-12 13:00:00 Outpatient MARYLOU ONEIL DENISE [facility] [id number] General acute hospital 2021-05-08 00:00:00 2021-05-08 00:00:00 Letter (Out) Marina Cottrell [facility] 1..840.114 350.1.13.10 4.2.7.2.686 [id number] General acute hospital 2021-05-06 00:00:00 2021-05-06 00:00:00 Telephone Marylou Funez [facility] 1.840.114 350.1.13.10 4.2.7.2.686 [id number] General acute hospital 2021-05-05 16:58:05 2021-05-05 17:08:05 Laboratory Only Only, Ang Db Test [facility] 1.840.114 350.1.13.10 4.2.7.2.686 [id number] General acute hospital 2021-05-05 16:35:00 2021-05-05 16:35:00 Outpatient R [facility] [id number] General acute hospital 2021-04-13 08:20:00 2021-04-13 08:20:00 Outpatient R DANIEL ASHER [facility] [id number] General acute hospital 2021-04-01 08:20:00 2021-04-01 08:20:00 Outpatient MARYLOU ONEIL DENISE [facility] [id number] General acute hospital 2021-04-01 00:00:00 2021-04-01 00:00:00 Case Management [facility] 1.840.114 350.1.13.10 4.2.7.2.686 [id number] General acute hospital 2021-03-24 09:28:00 2021-03-24 10:17:31 [facility] 1.840.114 350.1.13.10 4.2.7.2.686 [id number] General acute hospital 2021-03-24 09:30:00 2021-03-24 09:30:00 Outpatient MARYLOU ONEIL DENISE [facility] [id number] General acute hospital 2021-02-18 00:00:00 2021-02-18 00:00:00 Telephone Marylou Funez [facility] 1.2.840.114 350.1.13.10 4.2.7.2.686 [id number] General acute hospital 2021-02-16 00:00:00 2021-02-16 00:00:00 Telephone Marylou Funez [facility] 1.2.840.114 350.1.13.10 4.2.7.2.686 [id number] General acute hospital 2021-02-10 13:46:16 2021-02-10 23:59:00 Hospital Encounter Marylou Funez [facility] 1.2.840.114 350.1.13.10 4.2.7.2.686 [id number] General acute hospital 2021-02-10 14:00:00 2021-02-10 14:00:00 Outpatient MARYLOU ONEIL DENISE [facility] [id number] General acute hospital 2021-02-06 00:00:00 2021-02-06 00:00:00 Telephone Marylou Funez [facility] 1.2.840.114 350.1.13.10 4.2.7.2.686 [id number] General acute hospital 2021-01-26 09:20:00 2021-01-26 09:20:00 Outpatient FRANKIE CHANDLER HOWARD [facility] [id number] General acute hospital 2021-01-20 08:47:22 2021-01-20 09:41:41 Office Visit Marylou Funez [facility] 1.2.840.114 350.1.13.10 4.2.7.2.686 [id number] General acute hospital 2021-01-20 09:00:00 2021-01-20 09:00:00 Outpatient MARYLOU ONEIL DENISE [facility] [id number] General acute hospital 2021-01-20 00:00:00 2021-01-20 00:00:00 Orders Only Doctor Unassigned, [place] [facility] 1..840.114 350.1.13.10 4.2.7.2.686 [id number] General acute hospital 2021-01-12 09:00:00 2021-01-12 09:00:00 Outpatient DANIEL SIMEON [facility] [id number] General acute hospital 2021-01-06 08:54:52 2021-01-06 09:27:00 [facility] 1..840.114 350.1.13.10 4.2.7.2.686 [id number] General acute hospital 2021-01-06 09:00:00 2021-01-06 09:00:00 Outpatient MEÑO DEUTSCH [facility] [id number] General acute hospital 2021-01-01 18:01:46 2021-01-01 23:59:00 [facility] [place] [facility] ..840.114 350.1.13.10 4.2.7.2.686 [id number] General acute hospital 2021-01-01 18:01:46 2021-01-01 23:59:00 Outpatient MEÑO DEUTSCH [facility] [id number] General acute hospital 2021-01-01 00:00:00 2021-01-01 00:00:00 Outpatient MEÑO DEUTSCH [facility] [id number] General acute hospital 2020-12-23 07:52:36 2020-12-23 08:39:47 Office Visit Meño Capellan [facility] [place] 1..114 350.1.13.10 4.2.7.2.686 [id number] General acute hospital 2020-12-23 08:00:00 2020-12-23 08:00:00 Outpatient R MEÑO CAPELLAN [facility] [id number] General acute hospital 2020-12-23 00:00:00 2020-12-23 00:00:00 Letter (Out) Meño Capellan [facility] [place] [facility] [place] 1..114 350.1.13.10 4.2.7.2.686 [id number] General acute hospital 2020-12-19 10:17:00 2020-12-19 12:11:00 Emergency Zuleika Cowart S [facility] 1.2.114 350.1.13.10 4.2.7.2.686 [id number] General acute hospital 2020-12-18 00:00:00 2020-12-18 00:00:00 Telephone Blanco Vázquez [facility] Office Building One 1.114 350.1.13.10 4.2.7.2.686 [id number] General acute hospital 2020-12-17 10:45:00 2020-12-17 23:59:00 Hospital Encounter LyssamaryBlanco [facility] 1..114 350.1.13.10 4.2.7.2.686 [id number] General acute hospital 2020-12-17 10:12:52 2020-12-17 10:27:52 Office Visit Blanco Vázquez [facility] Office Building One 1.114 350.1.13.10 4.2.7.2.686 [id number] General acute hospital 2020-12-17 10:15:00 2020-12-17 10:15:00 Outpatient BLANCO WILKINS [facility] [id number] General acute hospital 2020-10-15 14:16:52 2020-10-15 14:31:52 Office Visit Blanco Vázquez [facility] Office Building One .840.114 350.1.13.10 4.2.7.2.686 [id number] General acute hospital 2020-10-15 14:15:00 2020-10-15 14:15:00 Outpatient BLANCO WILKINS [facility] [id number] General acute hospital 2020-09-11 15:50:26 2020-09-11 16:33:14 Urgent Care Randa James Leslie [facility] Office Building One 1.840.114 350.1.13.10 4.2.7.2.686 [id number] General acute hospital 2020-09-11 15:40:00 2020-09-11 15:40:00 Outpatient RUPA SANTAMARIA [facility] [id number] General acute hospital 2020-08-26 14:00:00 2020-08-26 14:00:00 Outpatient FRANKIE CHANDLER HOW[facility] [id number] General acute hospital 2020-08-12 16:11:47 2020-08-12 16:26:47 Office Visit Blanco Vázquez [facility] Office Building One .840.114 350.1.13.10 4.2.7.2.686 [id number] General acute hospital 2020-08-12 16:15:00 2020-08-12 16:15:00 Outpatient BLANCO WILKINS [facility] [id number] General acute hospital 2020-08-12 10:30:00 2020-08-12 10:30:00 Outpatient Zaheer VÁZQUEZ BLNACO [facility] [id number] General acute hospital 2020-08-02 00:00:00 2020-08-02 00:00:00 Orders Only Doctor Unassigned, [place] [facility] 1.114 350.1.13.10 4.2.7.2.686 [id number] General acute hospital 2020-07-28 08:43:04 2020-07-28 09:30:34 Office Visit Frankie Galvan [facility] Building 1..114 350.1.13.10 4.2.7.2.686 [id number] General acute hospital 2020-07-28 08:40:00 2020-07-28 08:40:00 Outpatient FRANKIE CHANDLER HOWARD [facility] [id number] General acute hospital 2020-07-15 13:54:22 2020-07-15 14:24:22 Office Visit LyssamaryBlanco [facility] Office Building One 1..114 350.1.13.10 4.2.7.2.686 [id number] General acute hospital 2020-07-15 14:00:00 2020-07-15 14:00:00 Outpatient Zaheer KATHIEBLANCO [facility] [id number] General acute hospital 2020-07-09 07:20:00 2020-07-10 16:20:00 Emergency Darlin Munoz Wei [facility] 1..114 350.1.13.10 4.2.7.2.686 [id number] General acute hospital 2020-07-09 07:16:00 2020-07-09 07:16:00 Emergency X [facility] ERT [id number] General acute hospital 2020-07-02 14:39:00 2020-07-02 16:21:00 Emergency Daisha Wheeler [facility] 1.2.840.114 350.1.13.10 4.2.7.2.686 [id number] General acute hospital 2020-07-02 14:13:00 2020-07-02 14:13:00 Emergency X [facility] ERT [id number] General acute hospital 2019-04-27 11:02:55 2019-04-27 14:01:00 Emergency Angela Kamara [facility] 1.2.840.114 350.1.13.10 4.2.7.2.686 [id number] 2019-04-27 11:02:55 2019-04-27 14:01:00 Emergency Angela Kamara [facility] 1.2.840.114 350.1.13.10 4.2.7.2.686 [id number] General acute hospital Orders Only Doctor Unassigned, [place] [facility] 1.2.840.114 350.1.13.10 4.2.7.2.686 [id number] General acute hospital Notes Date/Time Note Provider Source 2023-11-30 07:28:47 0907-83-40K16:28:47F ormatting of this note is different from the original.Last Refilled:levETIRAcetam 1,000 mg tablet 60 tablet 0 04/26/2023 -- --Sig: Take 1 tablet by mouth in the morning and 1 tablet in the evening.Sent to pharmacy as: levETIRAcetam 1,000 mg tablet (KEPPRA)Class: eRXNotes to Pharmacy: Needs appt for further refillsRoute: OralOrder: [id number]/Time Signed: 04/26/2023 11:27E-Prescribing Status: Receipt confirmed by pharmacy (04/26/2023 11:27 AM CDT)Recent VisitsDate Type Provider Dept10/11/23 Office Visit Blanco Vázquez MD [facility] Med07/06/23 Office Visit Blanco Vázquez MD [facility] Med05/24/23 Office Visit Blanco Vázquez MD [facility] MedShowing recent visits within past 540 days with a meds authorizing provider and meeting all other requirementsFuture AppointmentsNo visits were found meeting these conditions.Showing future appointments within next 150 days with a meds authorizing provider and meeting all other requirements 64083-1Pvjynmeoq encounter JetzAQ5820-99-18Z62:30:18Telephone encounter NoteTXT1.2.840.447293.1.13.104.2.7. 2.095059|[id number] for patient btgd30913-0NnryQTZMCXMSNJKNhhsgszda C-CDA narrative [id number] Myers[address] Xq[id number] 7FSHHDXBCYORPVRYQQIGNDI5647-54-94S4 7:30:181.2.840.445892.1.72.3.15|1.2 .840.340089.1.13.104.2.7.2.727879_[id number] [facility] 2023-05-12 12:28:40 3449-99-54V56:28:40F ormatting of this note is different from the original.Images from the original note were not included.Requested Renewals omeprazole 20 mg capsule Possible duplicate: Geovanna to review recent actions on this medication Sig: Take 1 capsule by mouth in the morning. Disp: 90 capsule Refills: 3 Start: 05/12/2023 Class: eRX Non-formulary For: Gastroesophageal reflux disease without esophagitis Last ordered: 1 year ago (04/14/2022) by TRAN Duran [facility]: Antiulcer - Proton Pump Inhibitors Failed 05/12/2023 11:42 AM Protocol Details Valid encounter within last 12 months To be filled at[facility] [id number] [address] Recent VisitsDate Type Provider Dept [...] authorizing provider and meeting all other requirements 08070-0Vikuyhssy encounter VatcEC0200-04-61S27:28:50Telephone encounter NoteTXT1.2.840.625793.1.13.104.2.7. 2.116935|[id number] for patient [id number] M Fisher [address] IktsZhtaaahiwGxfrzwuvaLGGF748835214 6IIKYYGGAOAYEFVQSGBKLJP0802-58-03K3 2:28:501.2.840.316282.1.72.3.15|1.2 .840.980264.1.13.104.2.7.2.727879_1 [id number] Phyllis Garcia [facility] 2023-05-02 10:17:09 2654-78-47O49:17:09F ormatting of this note might be different from the original.Patient is out of medications and is needing refills. He states he has a follow up with Kathie in May. 24643-2Swicbwoma encounter AhobLS2078-18-35W33:18:08Telephone encounter NoteTXT1.2.840.655791.1.13.104.2.7. 2.520005|[id number] for patient note99182-9LsabWDUAHVDQL[address] IigrX[id number] 4IHLDRVFAOTZJMRBCDIFZXG0994-81-79Y6 0:18:081.2.840.292703.1.72.3.15|1.[address]0051[address]1.13.104.2.7.2.727879_[id number] [facility] 2023-04-26 10:35:45 9344-55-72P72:35:45F ormatting of this note is different from the original.Images from the original note were not included.Requested Renewals levETIRAcetam 1,000 mg tablet Possible duplicate: Geovanna to review recent actions on this medication [...] within 360 days To be filled at: [facility] [id number] [address] Recent VisitsDate Type Provider Dept 04/14/22 Office Visit Khurram Disla FNP [facility] Med Showing recent visits within past 540 days with a meds authorizing provider and meeting all other requirementsFuture AppointmentsNo visits were found meeting these conditions.Showing future appointments within next 150 days with a meds authorizing provider and meeting all other requirements 20564-7Emwqhoaog encounter SlufFS3151-47-01A81:35:54Telephone encounter NoteTXT1.2.840.614126.1.13.104.2.7. 2.056932|[id number] for patient [id number] M Fisher [address] WdnjXliewfvllIyodotqjbDUAF841739401 2VGATKCJWIISVDXQMJUDHIV5052-56-96Q0 0:35:541.2.840.585940.1.72.3.15|1.2 .840.353779.1.13.104.2.7.2.727879_1 [id number] Phyllis Garcia [facility]"
[2024-02-24] MEDS ORDERED: IBUPROFEN 400 MG TAB ONE (03:44)
[2024-02-24] MEDS ORDERED: ALBUTEROL 2.5 MG/3 ML NEB SOL ONE (03:44)
[2024-02-24] MEDS ORDERED: predniSONE 20 MG TAB ONE (03:44)
[2024-02-24] MEDS ORDERED: GUAIFENESIN/DM 5 ML UCUP ONE (03:45)
[2024-02-24] MEDS ORDERED: DIPHENHYDRAMINE 25 MG TAB/CAP ONE (03:45)
[2024-02-24 04:08] LABS: Absolute Basophils 0.1 K/uL (0-0.5); Absolute Lymphocytes (CBC) 2.2 K/uL (0.7-4.9); Absolute Monocytes 0.7 K/uL (0.1-1.3); Absolute Neutrophil 4.8 K/uL (1.8-8.0); Basophils % 1.1 % (0-1.3); Eosinophils % 0.6 % (0-4.4); Hematocrit 42.6 % (39.6-49.0); Hemoglobin 14.4 g/dL (13.6-17.9); Lymphocytes % 28.3 % (15.3-44.8); MCH 29.7 pg (27.0-35.0); MCHC 33.8 g/dL (32.0-36.0); MCV 87.8 fL (80-100); MPV 9.8 fL (7.6-11.3); Monocytes % 8.7 % (3.3-12.3); Neutrophils % 61.3 % (41.7-73.7); Platelets 215 thou/uL (152-406); RBC Red Blood Cell Count 4.86 M/uL (4.33-5.43)
[2024-02-24 04:27] LABS: SARS-CoV-2 Antigen CONTROL BLUE LINE VIS/BG OK; SARS-CoV-2 Antigen Rapid Res Negative (Negative)
--- NOTE | 2024-02-24 05:52 | EDPHYS ---
Physician Documentation [facility] Name: Eugenio Villarreal Age: 58 yrs Sex: Male : 1965 Arrival Date: 02/24/2024 Time: 02:39 Bed 6 Private MD: ED Physician Chacho Kerns HPI: 02/23 03:29 This 58 yrs old Male presents to ER via Ambulatory with complaints of sp4 Breathing Difficulty, Difficulty Swallowing. 06:01 58-year-old male presents with cough congestion difficulty breathing.. sp4 Historical: - Allergies: 03:02 Clarithromycin; jb4 - Home Meds: 03:02 amlodipine oral [Active]; jb4 - PMHx: 03:02 Hypertension; Seizure; jb4 - Immunization history:: Adult Immunizations up to date. - Infectious Disease History:: Denies. - Social history:: Smoking status: Patient denies any tobacco usage or history of. Patient uses alcohol, nightly. - Family history:: not pertinent. ROS: 06:01 Constitutional: Negative for fever, chills, and weight loss, positive cough, positive sp4 nasal congestion, positive difficulty breathing. 06:01 All other systems are negative, Exam: 06:01 Constitutional: This is a well developed, well nourished patient who is awake, alert, sp4 and in no acute distress. Head/Face: Normocephalic, atraumatic. Eyes: Pupils equal round and reactive to light, extra-ocular motions intact. Lids and lashes normal. Conjunctiva and sclera are not injected. Cornea within normal limits. Periorbital areas with no swelling, redness, or edema. ENT: Nares patent. No nasal discharge, no septal abnormalities noted. Tympanic membranes are normal and external auditory canals are clear. Oropharynx with no redness, swelling, or masses, exudates, or evidence of obstruction, uvula midline. Mucous membranes moist. Neck: Trachea midline, no thyromegaly or masses palpated, and no cervical lymphadenopathy. Supple, full range of motion without nuchal rigidity, or vertebral point tenderness. Chest/axilla: Normal chest wall appearance and motion. Nontender with no deformity. No lesions are appreciated. Cardiovascular: Regular rate and rhythm with a normal S1 and S2. No gallops, murmurs, or rubs. Normal PMI, no JVD. No pulse deficits. Respiratory: Lungs have equal breath sounds bilaterally, clear to auscultation and percussion. No rales, rhonchi or wheezes noted. No increased work of breathing, no retractions or nasal flaring. Abdomen/GI: Soft, with normal bowel sounds. No distension or tympany. No guarding or rebound. No evidence of tenderness throughout. Back: No spinal tenderness. No costovertebral tenderness. Skin: Warm, dry with normal turgor. Normal color with no rashes, no lesions, and no evidence of cellulitis. MS/ Extremity: Pulses equal, no cyanosis. Neurovascular intact. Full, normal range of motion. Neuro: Awake and alert, GCS 15, oriented to person, place, time, and situation. Cranial nerves II-XII grossly intact. Motor strength 5/5 in all extremities. Sensory grossly intact. Psych: Awake, alert, with orientation to person, place and time. Behavior, mood, and affect are within normal limits 06:01 ECG was reviewed by the Attending Physician. EKG 0 253 sinus bradycardia at the rate of 53. Vital Signs: 03:00 BP 162 / 94; Pulse 58; Resp 16; Temp 98.4(TE); Pulse Ox 99% on R/A; Weight 80.74 kg jb4 (R); Height 5 ft. 7 in. (R); Pain 0/10; 04:34 BP 143 / 94; Pulse 71; Pulse Ox 99% on R/A; Pain 0/10; tm6 05:36 BP 142 / 71; Pulse 63; Pulse Ox 97% on R/A; Pain 0/10; tm6 03:00 Body Mass Index 27.88 (80.74 kg, 170.18 cm) jb4 03:00 Pain Scale: Adult jb4 04:34 Pain Scale: Adult tm6 05:36 Pain Scale: Adult tm6 Nahma Coma Score: 06:01 Eye Response: spontaneous(4). Motor Response: obeys commands(6). Verbal Response: sp4 oriented(5). Total: 15. MDM: 03:38 Patient medically screened. sp4 05:48 ED course: EXAM DESCRIPTION: Chest Single View CLINICAL HISTORY: SOB COMPARISON: None sp4 TECHNIQUE: 2 AP views of the chest. FINDINGS: Lung volumes adequate. Cardiac silhouette is normal in size. No pneumothorax. No large pleural effusion. No focal consolidation. No acute bony finding. IMPRESSION: No evidence of acute cardiopulmonary disease. . 06:01 Differential diagnosis: Anemia asthma, Bronchitis pneumonia. Data reviewed: vital sp4 signs, nurses notes, old medical records, lab test result(s), EKG, radiologic studies, plain films. ED course: Symptoms consistent with acute head cold. Patient prescribed medications to help with his symptoms.. 02/23 03:02 Order name: Flu; Complete Time: 05:48 vc1 02/23 03:02 Order name: SARS RAPID; Complete Time: 05:48 vc1 02/23 03:03 Order name: Basic Metabolic Panel; Complete Time: 05:48 vc1 02/23 03:03 Order name: CBC with Diff; Complete Time: 05:48 vc1 02/23 03:02 Order name: Chest Single View XRAY vc02/23 03:03 Order name: EKG - Nurse/Tech; Complete Time: 03:06 vc1 02/23 03:03 Order name: IV Saline Lock; Complete Time: 03:06 vc1 02/23 03:03 Order name: Labs collected and sent; Complete Time: 03:06 vc1 02/23 03:03 Order name: O2 Per Protocol; Complete Time: 03:06 vc1 02/23 03:03 Order name: O2 Sat Monitoring; Complete Time: 03:06 vc1 EC:01 Rate is 53 beats/min. Rhythm is regular, Sinus bradycardia. QRS Zebulon is Normal. IA sp4 interval is normal. QRS interval is normal. QT interval is normal. No Q waves. T waves are Normal. No ST changes noted. Clinical impression: No evidence of ischemia. Interpreted by me. Reviewed by me. Administered Medications: 03:50 Drug: Ibuprofen PO 800 mg PO once Route: PO; jb4 03:50 Drug: Albuterol Inhalation 2.5 mg Inhalation once Route: Inhalation; jb4 03:50 Drug: diphenhydrAMINE PO 25 mg PO once Route: PO; jb4 03:50 Drug: predniSONE PO 60 mg PO once Route: PO; jb4 03:50 Drug: Dextromethorphan-Guaifenesin PO Liquid 10 mg-100 mg/5 mL 10 ml PO once Route: PO; jb4 Disposition Summary: 02/24/24 05:51 Discharge Ordered Problem: new sp4 Symptoms: have improved sp4 Condition: Stable sp4 Diagnosis - Acute viral upper respiratory infection, common cold sp4 Followup: sp4 - With: Private Physician - When: 7 - 10 days - Reason: Recheck today's complaints Discharge Instructions: - Discharge Summary Sheet sp4 - Viral Illness, Adult sp4 Forms: - Work release form sp4 - Patient Portal Instructions sp4 Prescriptions: - Ventolin HFA 90 mcg/actuation Inhalation HFA Aerosol Inhaler - inhale 2 inhalation INHALATION route every 4 hours as needed for cough and sp4 shortness of breath, Dispense with Spacer; 1 unit; Refills: 0, Product Selection Permitted - dextromethorphan-guaifenesin 20-400 mg Oral tablet - take 1 tablet ORAL route every 6 hours PRN cough; 60 tablet; Refills: 0, sp4 Product Selection Permitted - Ibuprofen 600 mg Oral Tablet - take 1 tablet ORAL route every 6 hours As needed take with food; 30 tablet; sp4 Refills: 0, Product Selection Permitted - Prednisone 20 mg Oral Tablet - take 2 tablets ORAL route once daily for 5 days; 10 tablet; Refills: 0, Product sp4 Selection Permitted - promethazine 25 mg Oral tablet - take 1 tablet ORAL route every 6 hours As needed PRN nausea; 30 tablet; sp4 Refills: 0, Product Selection Permitted Signatures: Dispatcher [employer] Javi Laurent RN RN jb4 Ora Temple RN RN vc1 Chacho Kerns MD MD sp4
--- NOTE | 2024-02-24 05:52 | ER ---
Nurse's Notes [facility] Name: Eugenio Villarreal Age: 58 yrs Sex: Male : 1965 Arrival Date: 02/24/2024 Time: 02:39 Bed 6 Private MD: Diagnosis: Acute viral upper respiratory infection, common cold Presentation: 02/23 03:00 Chief complaint: Patient states: I have been having shortness of breath while sleeping jb4 for the past month and a half. I wake up gasping for air. I have been drinking wine nightly to help me sleep. Coronavirus screen: At this time, the client does not indicate any symptoms associated with coronavirus-19. Ebola Screen: No symptoms or risks identified at this time. Initial Sepsis Screen: Does the patient meet any 2 criteria? No. Patient's initial sepsis screen is negative. Does the patient have a suspected source of infection? No. Patient's initial sepsis screen is negative. Risk Assessment: Do you want to hurt yourself or someone else? Patient reports no desire to harm self or others. Onset of symptoms was January 04, 2024. Transition of care: patient was not received from another setting of care. 03:00 Method Of Arrival: Ambulatory jb4 03:00 Acuity: KASHIF 3 jb4 Historical: - Allergies: 03:02 Clarithromycin; jb4 - Home Meds: 03:02 amlodipine oral [Active]; jb4 - PMHx: 03:02 Hypertension; Seizure; jb4 - Immunization history:: Adult Immunizations up to date. - Infectious Disease History:: Denies. - Social history:: Smoking status: Patient denies any tobacco usage or history of. Patient uses alcohol, nightly. - Family history:: not pertinent. Screenin:58 [facility] ED Fall Risk Assessment (Adult) History of falling in the last 3 months, tm6 including since admission No falls in past 3 months (0 pts) Confusion or Disorientation No (0 pts) Intoxicated or Sedated No (0 pts) Impaired Gait No (0 pts) Mobility Assist Device Used No (0 pt) Altered Elimination No (0 pt) Score/Fall Risk Level 0 - 2 = Low Risk Oriented to surroundings, Maintained a safe environment, Educated pt \T\ family on fall prevention, incl call for assistance when getting out of bed. Abuse screen: Denies threats or abuse. Denies injuries from another. Nutritional screening: No deficits noted. Tuberculosis screening: No symptoms or risk factors identified. Assessment: 03:02 General: Appears in no apparent distress. uncomfortable, Behavior is cooperative, jb4 anxious. Pain: Denies pain. Neuro: Level of Consciousness is awake, alert, obeys commands, Oriented to person, place, time, situation. Cardiovascular: Patient's skin is warm and dry. Rhythm is sinus bradycardia. Respiratory: Airway is patent Respiratory effort is even, unlabored, Respiratory pattern is regular, symmetrical. GI: No signs and/or symptoms were reported involving the gastrointestinal system. : No signs and/or symptoms were reported regarding the genitourinary system. EENT: No signs and/or symptoms were reported regarding the EENT system. Derm: Skin is intact, Skin is pink, warm \T\ dry. Musculoskeletal: Circulation, motion, and sensation intact. Range of motion: intact in all extremities. 04:34 Reassessment: Patient appears in no apparent distress at this time. No changes from tm6 previously documented assessment. 04:54 Reassessment: Patient appears in no apparent distress at this time. Patient and/or jb4 family updated on plan of care and expected duration. Pain level reassessed. Patient is alert, oriented x 3, equal unlabored respirations, skin warm/dry/pink. Patient states feeling better. 05:36 Reassessment: Patient states feeling better. tm6 06:06 Reassessment: Patient appears in no apparent distress at this time. Patient and/or jb4 family updated on plan of care and expected duration. Pain level reassessed. Patient is alert, oriented x 3, equal unlabored respirations, skin warm/dry/pink. Patient states feeling better. Patient states symptoms have improved. Vital Signs: 03:00 BP 162 / 94; Pulse 58; Resp 16; Temp 98.4(TE); Pulse Ox 99% on R/A; Weight 80.74 kg jb4 (R); Height 5 ft. 7 in. (R); Pain 0/10; 04:34 BP 143 / 94; Pulse 71; Pulse Ox 99% on R/A; Pain 0/10; tm6 05:36 BP 142 / 71; Pulse 63; Pulse Ox 97% on R/A; Pain 0/10; tm6 03:00 Body Mass Index 27.88 (80.74 kg, 170.18 cm) jb4 03:00 Pain Scale: Adult jb4 04:34 Pain Scale: Adult tm6 05:36 Pain Scale: Adult tm6 Guero Coma Score: 06:01 Eye Response: spontaneous(4). Motor Response: obeys commands(6). Verbal Response: sp4 oriented(5). Total: 15. ED Course: 02:42 Patient arrived in ED. jj6 02:56 Patient has correct armband on for positive identification. Placed in gown. Bed in low tm6 position. Call light in reach. Side rails up X 1. Client placed on continuous cardiac and pulse oximetry monitoring. NIBP monitoring applied. yacht builder on. Pulse ox on. NIBP on. 02:56 EKG done, by ED staff, reviewed by Chacho Kerns MD. tm6 02:57 Provided Education on: alcohol use. tm6 02:58 Chacho Kerns MD is Attending Physician. sp4 03:01 Triage completed. jb4 03:02 Arm band placed on right wrist. jb4 03:15 Chest Single View XRAY In Process Unspecified. EDMS 03:49 Javi Hernández, RN is Primary Nurse. jb4 06:06 No provider procedures requiring assistance completed. intact, bleeding controlled, No jb4 redness/swelling at site. Pressure dressing applied. Administered Medications: 03:50 Drug: Ibuprofen PO 800 mg PO once Route: PO; jb4 03:50 Drug: Albuterol Inhalation 2.5 mg Inhalation once Route: Inhalation; jb4 03:50 Drug: diphenhydrAMINE PO 25 mg PO once Route: PO; jb4 03:50 Drug: predniSONE PO 60 mg PO once Route: PO; jb4 03:50 Drug: Dextromethorphan-Guaifenesin PO Liquid 10 mg-100 mg/5 mL 10 ml PO once Route: PO; jb4 Medication: 02:57 VIS not applicable for this client. tm6 Outcome: 05:51 Discharge ordered by . sp4 06:06 Discharged to home ambulatory, jb4 06:06 Condition: stable 06:06 Discharge instructions given to patient, Instructed on discharge instructions, follow up and referral plans. medication usage, Demonstrated understanding of instructions, follow-up care, medications, Prescriptions given X 5 06:07 Patient left the ED. jb4 Signatures: Dispatcher [employer] Javi Laurent RN RN jb4 Marcia Barajas jj6 Chacho Kerns MD MD sp4 Glenis Salgado RN RN tm6
[2024-02-24 06:25] VITALS: BP 142/71; TEMP 98.4; O2SAT 97
--- NOTE | 2024-02-24 10:46 | RAD REPORT ---
EXAM DESCRIPTION: RAD - Chest Single View - 02/24/2024 3:13 am CLINICAL HISTORY: SOB COMPARISON: None TECHNIQUE: 2 AP views of the chest. FINDINGS: Lung volumes adequate. Cardiac silhouette is normal in size. No pneumothorax. No large pleural effusion. No focal consolidation. No acute bony finding. IMPRESSION: No evidence of acute cardiopulmonary disease. Electronically signed by: Kaley López MD 02/24/2024 04:24 AM CDT RP Z9 Due to temporary technical issues with the PACS/Fluency reporting system, reports are being signed by the in house radiologist without review as a courtesy to ensure prompt reporting. The interpreting r adiologist is fully responsible for the content of the report.
--- NOTE | 2024-02-26 13:33 | EKG ---
Test Date: 2024-02-24 Test Time: 02:53:43 Electric Accounting Machine Operator: MARIZOL MEASUREMENT RESULTS: Intervals: Rate: 53 IL: 148 QRSD: 92 QT: 436 QTc: 409 [place]: P: 23 IL: 148 QRS: 45 T: 45 INTERPRETIVE STATEMENTS: Sinus bradycardia Otherwise normal ECG Compared to ECG 07/03/2023 07:50:40 Sinus rhythm no longer present Electronically Signed On 02-26-24 13:28:14 CDT by Jerry Kimbrough
== END 2024-02-24 06:07 | disposition home or self-care (01) ==
LOC: ER 02:39
DX: J06.9 Acute upper respiratory infection, unspecified (principal); J00 Acute nasopharyngitis [common cold]; I10 Essential (primary) hypertension; Z79.899 Other long term (current) drug therapy
CPT/HCPCS: 36415; 71045; 80048; 85025; 87804; 87811; 93005; 99285; J7512; J7613